=== PATIENT | female | born 1940 | race Caucasian/White ===

== ENCOUNTER 2022-06-26 06:11 | Observation (INO) ==
--- NOTE | 2022-05-22 12:22 | PAT Medication Instructions ---
Medication Instructions Date of Service May 22, 2022 Home Medications amlodipine 2.5 mg tablet (Norvasc) 2.5 mg PO QAM aspirin 81 mg tablet,delayed release (Jose Low Dose Aspirin) 81 mg PO QAM atenolol 50 mg tablet (Tenormin) 50 mg PO BID atorvastatin 40 mg tablet (Lipitor) 40 mg PO HS calcium carbonate 600 mg-vitamin D3 20 mcg (800 unit) chewable tablet (Caltrate 600 plus D) 1 tab PO UD levothyroxine 100 mcg tablet (Synthroid) 100 mcg PO QAM loratadine 10 mg tablet (Claritin) 10 mg PO DAILY PRN Allergy Symptoms multivitamin 1 tab PO QAM omeprazole 20 mg capsule,delayed release 20 mg PO QAM lisinopril 20 mg tablet 20 mg PO QAM omega 1-gdc-jyi-fish oil 900 mg-1,400 mg capsule,delayed release 1 cap PO BID STOP taking 2 weeks before surgery omega 9-xzv-bij-fish oil 900 mg-1,400 mg capsule,delayed release 1 cap PO BID DO NOT take the morning of surgery loratadine 10 mg tablet (Claritin) 10 mg PO DAILY PRN Allergy Symptoms multivitamin 1 tab PO QAM lisinopril 20 mg tablet 20 mg PO QAM calcium carbonate 600 mg-vitamin D3 20 mcg (800 unit) chewable tablet (Caltrate 600 plus D) 1 tab PO UD Take morning of surgery With a small sip of water, OTHERWISE NOTHING TO EAT OR DRINK AFTER MIDNIGHT: amlodipine 2.5 mg tablet (Norvasc) 2.5 mg PO QAM aspirin 81 mg tablet,delayed release (Jose Low Dose Aspirin) 81 mg PO QAM (unless surgeon directed otherwise) atenolol 50 mg tablet (Tenormin) 50 mg PO BID levothyroxine 100 mcg tablet (Synthroid) 100 mcg PO QAM omeprazole 20 mg capsule,delayed release 20 mg PO QAM Take evening before surgery atenolol 50 mg tablet (Tenormin) 50 mg PO BID atorvastatin 40 mg tablet (Lipitor) 40 mg PO HS loratadine 10 mg tablet (Claritin) 10 mg PO DAILY PRN Allergy Symptoms (if needed) Other Notes If you have any questions please call us at [phone] or [phone] or [phone] or [phone]
--- NOTE | 2022-05-29 10:28 | Anesthesiology Consultation ---
Date of Service May 29, 2022 Assessment & Plan (1) Encounter for pre-operative examination: - COVID screening: Per assessment on 05/29: No known COVID-19 positive contacts or current COVID-19 related symptoms. Travel screen negative. Patient vaccinated. At surgeon discretion if preop Covid testing being done. - S/P Right DENNISE (05/31/15): SAB at L3-4 (x1 attempt) at [facility] - Outpatient joint assessment: Pt currently scheduled for inpatient pathway. If surgeon requests review for outpatient joint pathway, patient is not recommended candidate for outpatient joint program from anesthesia standpoint. - Anemia: Hgb 9.3 on preop labs from 05/29/22. Note written to PCP- Awaiting PCP response (Dr. Ledezma/S). Chart Review Chart Review: Patient seen in Pre Admission Testing Teaching & Discussion Pre-Anesthesia Teaching/Discussion Notes: Instructed NPO after midnight before surgery,except medications with 15 cc of water. Medication instructions provided according to the PAT guidelines. History Surgery Operation Date: 06/26/22 10:40 Proposed Procedures p Right Total Hip Revision Arthroplasty - Sal Hancock MD Height/Weight Height: 5 ft 5 in Weight: 79.1 kg Allergies Allergy/AdvReac Type Severity Reaction Status Date / Time No Known Allergies Allergy Unverified 05/18/22 14:48 Medications Home Medications Medication Instructions Recorded Confirmed Last Taken amlodipine 2.5 mg tablet (Norvasc) 2.5 mg PO QAM 03/13/20 05/18/22 05/29/21 aspirin 81 mg tablet,delayed 81 mg PO QAM 03/13/20 05/18/22 05/29/21 release (Jose Low Dose Aspirin) atenolol 50 mg tablet (Tenormin) 50 mg PO BID 03/13/20 05/18/22 05/29/21 atorvastatin 40 mg tablet (Lipitor) 40 mg PO HS 03/13/20 05/18/22 05/29/21 calcium carbonate 600 mg-vitamin 1 tab PO UD 03/13/20 05/18/22 05/29/21 D3 20 mcg (800 unit) chewable tablet (Caltrate 600 plus D) levothyroxine 100 mcg tablet 100 mcg PO QAM 03/13/20 05/18/22 05/29/21 (Synthroid) loratadine 10 mg tablet (Claritin) 10 mg PO DAILY PRN Allergy Symptoms 03/13/20 05/18/22 05/29/21 multivitamin 1 tab PO QAM 03/13/20 05/18/22 05/29/21 omeprazole 20 mg capsule,delayed 20 mg PO QAM 03/13/20 05/18/22 05/29/21 release lisinopril 20 mg tablet 20 mg PO QAM 05/29/21 05/18/22 05/29/21 omega 0-ghm-gpj-fish oil 900 1 cap PO BID 05/29/21 05/18/22 05/29/21 mg-1,400 mg capsule,delayed release Past Medical History Medical History GERD (gastroesophageal reflux disease) Hyperlipidemia Hypertension Hypothyroidism Poor historian Exercise / Class Metabolic Activity III < 4 Walking/Shop/Light housework Past Family History Family History Other No pertinent family history Past Surgical History Surgical History Hip dislocation, right Multiple reductions (done with sedation 03/03/22 at [facility] ER) History of colonoscopy History of total right hip replacement Right DENNISE (05/31/15): SAB at L3-4 (x1 attempt) at [facility] Past Anesthesia History No Family Hx of Anesthesia Complications and Other (Awareness with 2016 right DENNISE, hx "slow to wake") History of PONV No Hx of PONV and No Hx of Motion Sickness Social History Smoking Status: Never smoker Do You Dip or Chew Tobacco: No Hx Alcohol Use: No Hx Substance Use: No substance use type: does not use Review of Systems Patient denies chest pain, shortness of breath, fever, chills, cough, wheezing, palpitations. Physical Exam Vital Signs VITALS BP 105/70 P 67 TEMP 99.3 SP02 95%RA RESP 16 PHYSICAL Full cervical extension range of motion. Full TMJ range of motion. TMD 3 finger breaths Mallampati Score 3 Dentition: partial upper Lungs: clear throughout to auscultation Cardiac: regular rate and rhythm, no murmurs noted Spine: normal Carotid arteries: negative bruit Extremities: no edema Lab Results Anesthesia Preop Results Results Anesthesia Widget: WBC 7.35 K/ul (4.8-10.8) 05/29/22 Hgb 9.3 g/dl (12.0-16.0) L 05/29/22 Hct 30.3 % (37.0-47.0) L 05/29/22 Plt 335 K/uL (130-400) 05/29/22 Na 140 mmol/L (136-145) 05/29/22 K 4.1 mmol/L (3.5-5.1) 05/29/22 Cl 104 mmol/L (98-107) 05/29/22 CO2 30 mmol/L (21-32) 05/29/22 BUN 11 mg/dl (6-23) 05/29/22 Creat 0.89 mg/dl (0.6-1.2) 05/29/22 Glucose Level 103 mg/dl (70-99(Fasting)) H 05/29/22 PT 10.5 Seconds (9.0-12.0) 05/29/22 PTT 23.9 Seconds (21.0-31.0) 05/29/22 INR 1.0 (0.9-1.1) 05/29/22 Blood Type B Positive 05/29/22 Antibody Screen NEGATIVE 05/29/22 Testing Electrocardiogram Date: 10/06/21 Findings: + NSR @ (62) Chest X-Ray Date: 10/06/21 Findings: + NAD COVID-19 Risk Screen Screening Information COVID-19 Screen Date: 05/29/22 Exposure 21 Days Family/Household +COVID Last 21 Days: No Exposure 10 Days Any COVID Exposure Last 10 Days: No Symptoms Last 10 Days Experienced COVID Sx Last 10 Days: No + COVID 0-90 Days COVID + in Last 0-90 Days: No
--- NOTE | 2022-06-23 13:18 | History and Physical Report ---
CHIEF COMPLAINT: Recurrent total hip replacement dislocation. HISTORY OF PRESENT ILLNESS: The patient is an 82-year-old female, who is status post right total hip replacement done on 06/01/2015. The surgery was uncomplicated and her postoperative course was unco mplicated. She had her first dislocation on 03/13/2020. She bent down to pick some food off the cara or, lost her balance, twisted her hip, and her hip popped out. She had x-rays, which revealed this a nd had it relocated. She has had 2 subsequent episodes one on 03/03/2022, which is the most recent. When the hip is located, she has no problems. No pain. Obviously, when it is out, it is quite pain ful. She now had 3 dislocations in the past 2 years. She is very apprehensive about her hip. She i s living by herself as her and having difficulty doing this due to her apprehensi on. Once again, no pain, just scared it is going to pop out. PAST MEDICAL HISTORY: Significant for: 1. Hypertension. 2. Elevated cholesterol. 3. Arthritis. PAST SURGICAL HISTORY: Includes right total hip replacement done on 06/01/2015. ALLERGIES: None. CURRENT MEDICATIONS: 1. Norvasc. 2. Aspirin. 3. Tenormin. 4. Lipitor. 5. Calcium with D. 6. Lisinopril. 7. Claritin. 8. Multivitamin. 9. [place]-3. 10. Omeprazole. SOCIAL HISTORY: This is an 82-year-old female. She lives by herself. She comes in with her ivy arriola, who is a retired nurse. FAMILY HISTORY: Noncontributory. REVIEW OF SYSTEMS: Negative for diabetes, neurologic problem, vascular problem, or bleeding disorder s. No chest pain or shortness of breath. No history of DVT or PE. No known bleeding problems. PHYSICAL EXAMINATION: GENERAL: Shows a pleasant, thin, healthy female. HEENT: Benign. NECK: Supple. No lymphadenopathy. LUNGS: Clear to auscultation. HEART: Regular rate and rhythm. ABDOMEN: Soft, nontender, and nondistended. EXTREMITIES: Grossly neurovascularly intact except as follows. Examination of the right hip reveals the patient walks independently. I did not detect any limp. Hi p incision is healed nicely. There is no swelling. Leg lengths are equal. No pain with hip motion. X-RAYS: I did review x-rays from the hospital, which revealed a dislocated hip replacement. It has now relocated. The implants are well fixed. There are no signs of poly wear or fracture. ASSESSMENT: An 82-year-old female, who is 6-1/2 years out from a total hip replacement with recurren t dislocation x3. She is quite healthy and I am fairly sure that this is going to happen again unles s we intervene. Cup positioning and hip component position looks excellent. I do not think we can i mprove on this. I think the only way to fix this problem is a constrained liner. PLAN: We will take her to the operating room and do a constrained liner. The risks and benefits of this procedure were explained to the patient in depth to include, but not limited to DVT, PE, , infection, neurological injury, vascular injury, bleeding problem, pain, limited range of motion, sti ffness, failure to relieve her symptoms, incomplete relief of symptoms, and recurrent dislocation. T he patient understands and desires to proceed. Informed consent was obtained. We are going to plan on keeping her in the hospital overnight. She will be discharged hopefully post operative day 1. She is going to go and stay at her daughter's house, who is a nurse. We will do DV T prophylaxis to include thigh-high TEDs, SCDs, and aspirin twice a day. We will follow up in the inic 2 weeks postop. Job ID: [id number]
[~2022-06-26 06:11] MED LIST: ACETAMINOPHEN 500 MG TAB PO SCH; CeleBREX 200 MG CAP PO SCH; FAMOTIDINE 20 MG TAB PO SCH; LR 500ML BOLUS, THEN 15ML/HR IV SCH; LR 60ML/HR IV SCH; METOCLOPRAMIDE HCL 10 MG TABLET PO SCH; TRANEXAMIC ACID 1,000 MG **IV Pre-op IV SCH; ceFAZolin 2000MG 2,000 MG/15 ML SYR IV SCH
[2022-06-26] MEDS ORDERED: BUPIVACAINE 0.5 % 5 MG/1 ML MPF 30ML VIAL ONE (06:29)
--- NOTE | 2022-06-26 06:49 | History & Physical Bridge Note ---
Date of Service June 26, 2022 History & Physical Bridge Note I have examined the patient, reviewed the History & Physical and in the interval since the performance of the History & Physical I have noted the following changes of clinical significance: no changes noted
[2022-06-26 07:17] LABS: Basophils % (auto) 1.1 %; Eosinophils # (auto) 0.55 K/uL (0-0.50); Eosinophils % (auto) 5.8 %; Hemoglobin 10.1 g/dl (12.0-16.0); Immature Granulocytes # (auto) 0.03 K/uL (0.01-0.20); Immature Granulocytes % (auto) 0.3 %; Lymphocytes # (auto) 2.63 K/uL (1.2-3.4); Lymphocytes % (auto) 27.9 %; Mean Corpuscular Hemoglobin 25.8 pg (25.0-34.0); Mean Corpuscular Hgb Conc 29.7 g/dL (32.0-36.0); Mean Corpuscular Volume 86.7 fL (80.0-100.0); Mean Platelet Volume 9.3 fL (9.4-12.4); Monocytes # (auto) 1.23 K/uL (0.11-0.59); Neutrophils % (auto) 51.9 %; Platelet Count 407 K/uL (130-400); RDW Coefficient of Variation 18.8 % (11.5-14.5); RDW Standard Deviation 57.5 fL (36.4-46.3); Red Blood Count 3.92 M/uL (4.20-5.40); White Blood Count 9.44 K/ul (4.8-10.8)
[2022-06-26] MEDS ORDERED: MIDAZOLAM HCL 1 MG/ML 2ML VIAL ONE (07:41)
[2022-06-26] MEDS ORDERED: ePHEDrine sulfate 50 MG/ML AMP IV PRN (08:15)
[2022-06-26] MEDS ORDERED: ONDANSETRON INJ 2 MG/ML 2 ML VIAL IV PRN ×2 (08:15→13:39)
[2022-06-26] MEDS ORDERED: ATROPINE SULFATE 0.1 MG/ML 10ML SYR IV PRN (08:15)
[2022-06-26] MEDS ORDERED: fentaNYL citrate 100 MCG/2 ML VIAL IV PRN (08:15)
[2022-06-26] MEDS ORDERED: PROPOFOL IV EMULSION 10 MG/ML 20 ML VIAL IV ONE ×2 (08:23→11:06)
[2022-06-26] MEDS ORDERED: ONDANSETRON INJ 2 MG/ML 2 ML VIAL ONE (08:23)
[2022-06-26] MEDS ORDERED: DEXAMETHASONE SOD INJ 4 MG/ML VIAL ONE (08:23)
[2022-06-26] MEDS ORDERED: LIDOCAINE 2% MPF LOCAL 5 ML VIAL INFIL ONE (08:23)
[2022-06-26] MEDS ORDERED: BUPIVACAINE/EPINEPHRINE 0.5% MPF 1:200,000 30 ML VIAL ONE (08:59)
[2022-06-26] MEDS ORDERED: ePHEDrine sulfate 50 MG/ML SYR ONE (09:57)
[2022-06-26] MEDS ORDERED: PHENYLEPHRINE 100MCG/ML 5ML SYR ONE (09:57)
--- NOTE | 2022-06-26 11:28 | Operative Report ---
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 There is no minimal left hip joint effusion. There is no signs of infection. The implants were well fixed. The hip was quite stable on exam. Specimens None Anesthesia Type Spinal MAC Complications none Disposition Accompanied Patient To Recovery: No Indications Patient is an 82-year-old female who is now about 7 years out from uncomplicated total hip arthroplasty. She did quite well for several years and then 4 and half years after her breast surgery she was bending over twisted fell and had a first dislocation. As she has had 2 subsequent dislocations since then. Component position looked ideal. She failed conservative measures. She elected proceed with surgical stabilization with a constrained liner. Description of Procedure Operative implants consist of: 1. Synthes [place] 36 x 50 6+4 offset the constrained liner. 2. +5/36 mm metal articular ball. The patient was taken the operating, identified, placed on the operating table supine position protectors were properly padded. IV antibiotics tried by anesthesia team. A spinal anesthetic and been implemented holding area. Alexander catheter was placed in sterile fashion. Patient then placed in the left lateral decubitus position. Axillary roll was placed. A Stulberg hip positioner was used for positioning. The right hip and leg were then prepped and draped in usual sterile fashion. A posterolateral approach to the right hip was then performed through a curvilinear incision centered over the greater trochanter. Sharp dissection T hrough subcutaneous tissue down to the IT band gluteal fascia the IT band gluteal fascia incised longitudinally in line with skin incision. Upon going through the IT band gluteal fascia the posterior hip was easily identified. The posterior capsule was completely disrupted. The sutures were still there but that capsule was disrupted. There is no significant effusion or signs of recent trauma and no signs of infection. The hip was then internally rotated and dislocated. It was quite difficult to dislocate. The femoral head was removed. I then loosened up the tissues around the acetabulum and retracted the femur superior and anterior. I exposed the acetabulum so I could see all aspects of the rim. We then remove the polyethylene with removal instrument. I then elected to place a constrained liner. We placed a neutral liner with a +4 offset. It was impacted in position. A +5/36 mm metal articular ball was placed. The constrained ring was placed over the ball and neck. Hip was located. It was quite difficult to locate. We spent quite a bit of time trying to get the locking ring over the plastic. After several attempts we realized that it was on backwards. Therefore we had redislocated the hip, switched the orientation of the constrained ring and relocate the hip. The liner ring was then quite a bit easier to a place over the polyethylene. Once it was appropria te position we tested the hip. We cannot create any distraction with shuck test. It was fully stable in full extension and external rotation flexion to 9 degrees internal rotation over 60 degrees. There is no signs of instability to any rotation. Attention drawn toward closing. Nupathe wounds irrigated cosigns of pulsatile lavage solution. I did inject locally with 60 cc of half percent Marcaine with epinephrine. There was no posterior capsule to repair. The IT band gluteal fascia then closed in 1 PDS suture running fashion for subcutaneous tissues then closed with 2 layers the deep layer #2 Vicryl suture and subcutaneous tissues with 2-0 Dexon suture in a buried interrupted fashion. Skin was closed skin jori. Leg was then cleaned and dried and sterile dressed with Xeroform, 4 x 4's, ABD pad, foam tape was applied. Patient then transferred to the recovery room in stable condition. Patient tolerated procedure well no complications. Demond Ayala, my physician assistant restaurant general manager, was present for the entire procedure. His assistance was required for proper patient positioning, prepping and draping, surgical exposure, retraction, placing the implants, perform the technical detai ls of the operation, reduction of the hip and closure of the wound followed by a placement of sterile bandage. I attest to the content of the Intraoperative Record and any orders documented therein. Any exceptions are noted below.
--- NOTE | 2022-06-26 12:01 | XRay Report ---
XR hip 1V RT w pelvis HISTORY: 82 years-old Female IN PACU - Post Surgical right hip arthroplasty COMPARISON: 03/03/2022 TECHNIQUE: AP view the pelvis with crosstable lateral view of the right hip FINDINGS: Moderate osteoarthritis of the left hip. Right hip arthroplasty demonstrates satisfactory alignment. No acute fracture or unexpected opaque foreign body identified. Lateral skin jori are present leonela g with expected postoperative soft tissue swelling with deep tissue air. Alexander catheter. IMPRESSION: Right hip total joint arthroplasty with expected postoperative changes. ACT 112: Negative or not required by law. The above report was generated using voice recognition software. It may contain grammatical, syntax o r spelling errors. Electronically signed by: Gaston De M.D. 06/26/2022 12:00 PM
[2022-06-26] MEDS ORDERED: LORATADINE 10 MG TAB PO PRN (13:39)
[2022-06-26] MEDS ORDERED: bisacodyL 10 MG SUPP PR PRN (13:39)
[2022-06-26] MEDS ORDERED: MAGNESIUM HYDROXIDE SUSP 30 ML UDC PO PRN (13:39)
[2022-06-26] MEDS ORDERED: NALOXONE HCL 0.4 MG/1 ML VIAL/CARP IV PRN (13:39)
[2022-06-26] MEDS ORDERED: NON-FORMULARY MEDICATION (Calcium Carbonate-Vitamin D3 [Caltrate 600 Plus D] 600 mg (1,500 PO SCH (13:39)
[2022-06-26] MEDS ORDERED: HYDROmorphone INJ 0.5 MG/0.5 ML SYR IV PRN (13:39)
[2022-06-26] MEDS ORDERED: ALUMINUM/MAGNESIUM SUSP 30 ML UDC PO PRN (13:39)
[2022-06-26] MEDS ORDERED: METOCLOPRAMIDE HCL INJ 5 MG/ML 2 ML VIAL IV PRN (13:39)
--- NOTE | 2022-06-26 13:54 | Anesthesiology Progress Note ---
Date of Service June 26, 2022 Anesthesia Post Procedure Vital Signs Vital Signs: Temp Pulse Pulse Resp BP Pulse Ox O2 Del Method 06/26/22 13:10 36.4 C L 65 16 122/69 98 Nasal Cannula 06/26/22 12:55 70 19 119/69 97 Nasal Cannula 06/26/22 12:40 66 17 113/65 98 Nasal Cannula 06/26/22 12:30 63 18 119/69 99 Nasal Cannula 06/26/22 12:20 67 20 118/69 100 Nasal Cannula 06/26/22 12:10 36.4 C L 65 19 115/64 97 Nasal Cannula 06/26/22 12:00 68 15 113/64 97 Nasal Cannula 06/26/22 11:50 66 14 109/60 97 Nasal Cannula 06/26/22 11:40 66 17 106/63 99 Nasal Cannula 06/26/22 11:30 67 15 106/70 98 Nasal Cannula 06/26/22 11:20 36.1 C L 55 L 17 130/74 100 Nasal Cannula 06/26/22 06:33 36.7 C 71 20 120/60 99 Room Air O2 Flow Rate 06/26/22 13:10 2 06/26/22 12:55 2 06/26/22 12:40 2 06/26/22 12:30 2 06/26/22 12:20 2 06/26/22 12:10 2 06/26/22 12:00 2 06/26/22 11:50 2 06/26/22 11:40 2 06/26/22 11:30 2 06/26/22 11:20 3 06/26/22 06:33 Transfer of Care Handoff Completed per policy Notes Mental Status: alert / awake / arousable and participated in evaluation Patient Amnestic to Procedure: Yes Nausea / Vomiting: adequately controlled Pain: adequately controlled Airway Patency, RR, SpO2: stable & adequate BP & HR: stable & adequate Hydration State: stable & adequate Neuraxial Anesthesia: was administered and sensory block is resolving Anesthetic Complications: no major complications apparent and Pt Satisfied with anesthetic care
[2022-06-26] MEDS: ACETAMINOPHEN 500 MG TAB PO SCH ×2 (14:40→21:02)
[2022-06-26] MEDS: SODIUM CHLORIDE 0.9% 1000ML 1,000 ML IV SCH (14:41)
[2022-06-26] MEDS ORDERED: TRANEXAMIC ACID / 0.7% NACL 1,000 MG/100 ML BAG IV SCH (17:30)
[2022-06-26] MEDS: traMADol HCL 50 MG TABLET PO PRN (17:40)
[2022-06-26] MEDS: ceFAZolin 1000MG 1,000 MG/7.5 ML SYR IV SCH (17:40)
[2022-06-26] MEDS: DOCUSATE SODIUM 100 MG CAP PO SCH (20:13)
[2022-06-26] MEDS: ATENOLOL 50 MG TABLET PO SCH (20:13)
[2022-06-26] MEDS: ASPIRIN 81 MG ECTAB PO SCH (20:13)
[2022-06-26] MEDS: OMEGA-3 (PURIFIED FISH OIL) 1 GM CAP PO SCH (20:13)
[2022-06-26] MEDS ORDERED: ATORVASTATIN 40 MG TAB PO SCH (21:00)
[2022-06-26] MEDS ORDERED: SENNA 8.6 MG TAB PO SCH (21:00)
[2022-06-27] MEDS: SODIUM CHLORIDE 0.9% 1000ML 1,000 ML IV SCH (00:38)
[2022-06-27] MEDS: ceFAZolin 1000MG 1,000 MG/7.5 ML SYR IV SCH (00:38)
[2022-06-27 03:36] VITALS: O2SAT 94
[2022-06-27] MEDS: ACETAMINOPHEN 500 MG TAB PO SCH (05:42)
[2022-06-27] MEDS ORDERED: LEVOTHYROXINE SODIUM 100 MCG TABLET PO SCH (06:30)
[2022-06-27 07:18] VITALS: BP 118/71; PULSE 62; TEMP 98.4
[2022-06-27 08:14] LABS: BUN Creatinine Ratio 13.3 (10-20); Calcium 8.9 mg/dl (8.5-10.1); Est GFR (African American) 62.3 ml/min; Est GFR (Non-African American) 53.7 ml/min
[2022-06-27 08:32] LABS: Hematocrit (blood only) 23.9 % (37.0-47.0); Hemoglobin 7.1 g/dl (12.0-16.0); Mean Corpuscular Hemoglobin 25.6 pg (25.0-34.0); Mean Corpuscular Hgb Conc 29.7 g/dL (32.0-36.0); Mean Corpuscular Volume 86.3 fL (80.0-100.0); Mean Platelet Volume 9.7 fL (9.4-12.4); Platelet Count 248 K/uL (130-400); RDW Coefficient of Variation 18.7 % (11.5-14.5); RDW Standard Deviation 57.1 fL (36.4-46.3); Red Blood Count 2.77 M/uL (4.20-5.40); White Blood Count 9.33 K/ul (4.8-10.8)
[2022-06-27 08:33] LABS: Acanthocytes 2+; Basophils # (auto) 0.01 K/uL (0-0.2); Basophils % (auto) 0.1 %; Immature Granulocytes # (auto) 0.04 K/uL (0.01-0.20); Immature Granulocytes % (auto) 0.4 %; Lymphocytes # (auto) 0.96 K/uL (1.2-3.4); Lymphocytes % (auto) 10.3 %; Monocytes # (auto) 0.87 K/uL (0.11-0.59); Monocytes % (auto) 9.3 %; Neutrophils # (auto) 7.45 K/uL (1.40-6.50); Neutrophils % (auto) 79.9 %; Ovalocytes 1+; Polychromasia 1+
[2022-06-27] MEDS: traMADol HCL 50 MG TABLET PO PRN (08:33)
[2022-06-27] MEDS: DOCUSATE SODIUM 100 MG CAP PO SCH (08:34)
[2022-06-27] MEDS: ASPIRIN 81 MG ECTAB PO SCH (08:34)
[2022-06-27] MEDS: OMEGA-3 (PURIFIED FISH OIL) 1 GM CAP PO SCH (08:34)
[2022-06-27] MEDS: ATENOLOL 50 MG TABLET PO SCH (08:34)
[2022-06-27] MEDS ORDERED: PANTOprazole 40 MG TAB PO SCH (09:00)
[2022-06-27] MEDS ORDERED: MULTIVITAMIN TAB PO SCH ×2 (09:00)
[2022-06-27] MEDS ORDERED: amLODIPine BESYLATE 5 MG TAB PO SCH (09:00)
[2022-06-27] MEDS ORDERED: lisinopril 20 MG TAB PO SCH (09:00)
--- NOTE | 2022-06-27 11:28 | Progress Notes ---
DATE OF SERVICE: 06/27/2022 SUBJECTIVE: An 82-year-old female postoperative day 1 from a revision arthroplasty to a constrained liner. She is doing well. Pain has been controlled. She says therapy went well this morning. She is anxious to get home. All dressed and ready to go. OBJECTIVE: VITAL SIGNS: Temperature is 36.9. Vital signs are stable. PHYSICAL EXAMINATION: GENERAL: Shows a pleasant elderly female. She is lying in bed, looks pretty comfortable. EXTREMITIES: Examination of the right hip reveals the dressing to be clean, dry and intact. Leg mary gths were equal. Hip is located. NEUROLOGIC: She is neurologically intact. LABORATORY DATA: Hemoglobin 7.1. Hematocrit 23.9. Electrolytes are stable. ASSESSMENT: An 82-year-old female postoperative day 1 from a right total hip replacement revision to a constrained liner. She is doing well. Hemoglobin is a bit low, but she is asymptomatic. She maddy christianson has a low hemoglobin. She is on iron supplementation. Pain is controlled. Hip is located. S he is neurologically intact. PLAN: 1. DVT prophylaxis includes thigh-high TEDs, SCDs, and aspirin twice a day for 6 weeks. 2. PT/OT, weightbear as tolerated. Total hip protocol. 3. Pain control, doing okay with current pain regimen. 4. Disposition: Plan to discharge to home with her daughter's assistance. She is going to stay at her daughter's house. She will have home health there. Continue iron supplementation. Job ID: [id number]
--- NOTE | 2022-07-01 06:06 | Discharge Summary ---
Date of Service July 01, 2022 Discharge Data Procedures Performed Operation Date: 06/26/22 08:50 Actual Procedures p Right Total Hip Revision Arthroplasty(Right) - Sal Hancock MD Hospital Course (1) History of revision of total replacement of right hip joint: This is a 82 year old patient admitted on 06/26/22 and underwent revision hip arthroplasty, specifically revision to a constrained liner. She tolerated the procedure well and there were no complications. Transferred to the PACU post op and later to the orthopedic floor for further care. She was given ancef for antibiotic prophylaxis. __ was also given NISA stockings, SCDs, and aspirin for DVT prophylaxis. Hemoglobin, hematocrit, and vital signs were monitored during her hospital stay and remained stable. She was anemic but did not require any blood transfusions. She was on an iron supplement. There were no complications during her hospital stay. By post op day #1 the patient was tolerating a regular diet, pain was reasonably controlled with oral pain medicine, and she was participating in physical therapy. On post op day #1 the patient was discharged home and set up with home health care. She was given printed discharge instructions including prescriptions for extra strength tylenol, aspirin, zofran, senokot, and tramadol. Continue physical therapy, weight bearing as tolerated. Continue hip precautions. Continue NISA stockings. Follow up approximately 2 weeks post op or sooner if there are problems or concerns. Coding Level of Care Code None Diagnoses History of revision of total replacement of right hip joint Z96.641
== END 2022-06-27 14:04 | disposition home health service (06) ==
LOC: ASU 06:11 → 3N 11:26 → INTOOBSV 11:26

== ENCOUNTER 2022-06-29 12:19 | Inpatient (IN) ==
[2022-06-29] MEDS ORDERED: SODIUM CHLORIDE 0.9% 250 ML IV PRN ×3 (12:50→17:46)
[2022-06-29] MEDS ORDERED: PANTOprazole 80 MG in DEXTROSE 5% 100 ML IV STA (12:55)
--- NOTE | 2022-06-29 13:10 | Emergency Department Note ---
Impression & Plan Anemia, Heme positive stool, Status post hip surgery ED Provider Note NAME: LAMINE CAMPBELL AGE: 82 SEX: F : 1940 ARRIVES VIA: Walk-In INFORMANT: [Patient][family] ED PROVIDER(S): [Frankie Lakhani MD] CHIEF COMPLAINT: Dr. Referred HISTORY OF PRESENT ILLNESS: The patient is an 82-year-old female who had a revision of her right hip done [address] Hancock. The patient's preop hemoglobin was 10.1. At discharge after the surgery, the hemoglobin was 7.1. Yesterday, outpatient laboratory testing revealed a value of 6.8. The patient was sent for a blood transfusion. The patient does have black stools but takes iron. She does not recall any history of previous GI bleeding. She has not had chest pain or shortness of breath, no abdominal pain. She does not feel weak. The patient is on a daily aspirin. PMHx/PSHx: See Below SOCIAL HISTORY: See Below. PHYSICAL EXAM: GENERAL: Patient is in no acute distress. HEENT: No acute trauma, normocephalic atraumatic, mucous membranes moist, no nasal congestion. NECK: No stridor, no adenopathy, no meningismus, trachea is midline. LUNGS: Clear to auscultation bilaterally, no wheeze, no rhonchi, breath sounds equal. HEART: 2/6 systolic murmur, regular rate and rhythm. ABDOMEN: Soft, nontender, bowel sounds positive, no peritonitis. EXTREMITIES: No cyanosis or edema, full range of motion of all the joints without pain or difficulty, no signs for acute trauma. NEUROLOGIC: Oriented x 3, no acute motor or sensory deficits, no focal weakness. SKIN: No rash, no jaundice, no diaphoresis. Pale. Rectal: Dark-colored stool, trace heme positive. DIFFERENTIAL DIAGNOSIS: GI bleeding, anemia secondary to her surgical work, renal or liver failure, coagulopathy, gastritis or ulcer, AVM, among others. EMERGENCY DEPARTMENT COURSE/PROCEDURES: Prior/Outside records reviewed: None. ECG per my interpretation: Indication was possible GI bleeding. The ECG shows a normal sinus rhythm with a rate of 61. There is no ST elevation, no PVCs. The QTc is 410 Continuous Cardiac Monitoring per my interpretation: An order was placed for continuous cardiac monitoring. The monitor shows a rate of 63 with normal sinus rhythm. Critical Care Note: I have personally spent 43 minutes of critical care time in the direct management of this patient. This includes bedside care, interpretation of diagnostic studies, and testing, discussion with consultants, patient, and family members, and other required patient management activities. This 43 minutes is in excess of all separately billable procedures. MEDICAL DECISION MAKING: There is no leukocytosis. The patient is anemic with a hemoglobin of 6.6. The hemoglobin has dropped compared to her recent testing. There was a normal platelet count. No coagulopathy. No renal failure or significant electrolyte abnormality. No concerning liver enzyme elevation. ECG showed a normal sinus rhythm, no ischemia. Cardiac enzyme testing x1 was not consistent with acute cardiac injury. On exam, the patient was pale. She was resting comfortably. She was not hypotensive. Rectal exam showed trace heme positive stool. The patient presents with anemia. She is going to require a packed red blood cell transfusions. I did order for 1 unit to be transfused here in the ED, the appropriate paperwork for the transfusion was completed and signed. I do think the patient requires a hospital stay. She is anemic and actually may be losing blood from her GI tract. Further work-up is warranted. The patient was given IV Protonix, 80 mg. I did speak with the patient and case management, the on-call hospitalist was consulted. DISPOSITION: Patient's presentation and findings warrant a hospital stay. Past Med/Surg History Medical History GERD (gastroesophageal reflux disease) Hyperlipidemia Hypertension Hypothyroidism Poor historian Surgical History Hip dislocation, right Multiple reductions (done with sedation 03/03/22 at [facility] ER) History of colonoscopy History of hip surgery 06/26/2022-right total hip replacement revision to a constrained liner History of total right hip replacement Right DENNISE (05/31/15): SAB at L3-4 (x1 attempt) at [facility] Family History Other No pertinent family history Social History Smoking Status: Never smoker Second Hand Exposure: No; Hx Alcohol Use: No Hx Substance Use: No Preferred Language: [place] Helen[place] Communication Ability: Effective Semi Conductor Assembler Required: No Beliefs That Will Affect Care: None Current Living Situation: Alone Feels Safe at Home: Yes Assistive Devices: Walker Allergies Allergies Allergy/AdvReac Type Severity Reaction Status Date / Time No Known Allergies Allergy Verified 06/26/22 06:30 Home Meds Home Medications Medication Instructions Recorded Confirmed amlodipine 2.5 mg tablet (Norvasc) 2.5 mg PO QAM 03/13/20 06/29/22 atenolol 50 mg tablet (Tenormin) 50 mg PO BID 03/13/20 06/29/22 atorvastatin 40 mg tablet (Lipitor) 40 mg PO HS 03/13/20 06/29/22 calcium carbonate 600 mg-vitamin 1 tab PO Q2D 03/13/20 06/29/22 D3 20 mcg (800 unit) chewable tablet (Caltrate 600 plus D) levothyroxine 100 mcg tablet 100 mcg PO QAM 03/13/20 06/29/22 (Synthroid) loratadine 10 mg tablet (Claritin) 10 mg PO DAILY PRN Allergy Symptoms 03/13/20 06/29/22 multivitamin 1 tab PO QAM 03/13/20 06/29/22 omeprazole 20 mg capsule,delayed 20 mg PO QAM 03/13/20 06/29/22 release lisinopril 20 mg tablet 20 mg PO QAM 05/29/21 06/29/22 omega 4-tvy-piy-fish oil 900 1 cap PO BID 05/29/21 06/29/22 mg-1,400 mg capsule,delayed release ferrous sulfate 325 mg (65 mg 325 mg PO BID 06/29/22 06/29/22 iron) tablet (FeroSul) Previous Rx's Medication Instructions Recorded acetaminophen 500 mg capsule 1,000 mg PO TID Pain 30 days #180 06/24/22 caps aspirin 81 mg tablet,delayed 81 mg PO BID 30 days #60 tabs 06/24/22 release (Jose Low Dose Aspirin) ondansetron HCl 4 mg tablet 4 mg PO Q6 PRN nausea #20 tabs 06/24/22 sennosides 8.6 mg-docusate sodium 1 tab-cap PO DAILY #14 tabs 06/24/22 50 mg tablet (Senokot-S) tramadol 50 mg tablet 50 - 100 mg PO Q6H PRN pain #40 06/24/22 tabs Results & Data (ED) Vital Signs Vital Signs - 24 hr 06/29/22 12:27 06/29/22 12:40 06/29/22 12:47 Temperature 36.4 C L Temperature Source Temporal Artery Scan Pulse Rate 71 63 Pulse Rate [Radial] 64 Pulse Rhythm Pulse Rhythm [Radial] Regular Pulse Strength [Radial] Normal Respiratory Rate 16 18 Respiratory Effort / Characteristics Non-Labored Spontaneous Respiratory Depth Normal Normal Respiratory Pattern Regular Blood Pressure 93/58 L Blood Pressure [Left Arm] 112/62 Blood Pressure Mean 69 Blood Pressure Mean [Left Arm] 78 Blood Pressure Position Sitting Blood Pressure Position [Left Arm] Sitting Pulse Oximetry 97 96 Oxygen Delivery Method Room Air Room Air Sepsis New/Unexplained Change in Mental Status No Sepsis Action Taken by Nursing No Action Required 06/29/22 12:50 Temperature Temperature Source Pulse Rate 60 Pulse Rate [Radial] Pulse Rhythm Regular Pulse Rhythm [Radial] Pulse Strength [Radial] Respiratory Rate 18 Respiratory Effort / Characteristics Respiratory Depth Respiratory Pattern Blood Pressure Blood Pressure [Left Arm] Blood Pressure Mean Blood Pressure Mean [Left Arm] Blood Pressure Position Blood Pressure Position [Left Arm] Pulse Oximetry 96 Oxygen Delivery Method Room Air Sepsis New/Unexplained Change in Mental Status Sepsis Action Taken by Alf Medications Current Medication List: was personally reviewed by me Laboratory Data Attestation: I reviewed the patient's lab results. 06/29/22 13:29 06/29/22 13:29 Lab Results 06/29/22 06/29/22 06/29/22 Range/Units 13:29 13:29 13:29 WBC 9.46 (4.8-10.8) K/ul RBC 2.49 L (4.20-5.40) M/uL Hgb 6.6 L* (12.0-16.0) g/dl Hct 22.0 L (37.0-47.0) % MCV 88.4 (80.0-100.0) fL MCH 26.5 (25.0-34.0) pg MCHC 30.0 L (32.0-36.0) g/dL RDW Std Deviation 63.7 H (36.4-46.3) fL RDW Coeff of Peewee 20.3 H (11.5-14.5) % Plt Count 268 (130-400) K/uL MPV 9.8 (9.4-12.4) fL Immature Gran % (Auto) 0.6 % Neut % (Auto) 71.2 % Lymph % (Auto) 16.9 % Brooks % (Auto) 8.5 % Eos % (Auto) 2.2 % Baso % (Auto) 0.6 % Neut # (Auto) 6.73 H (1.40-6.50) K/uL Lymph # (Auto) 1.60 (1.2-3.4) K/uL Brooks # (Auto) 0.80 H (0.11-0.59) K/uL Eos # (Auto) 0.21 (0-0.50) K/uL Baso # (Auto) 0.06 (0-0.2) K/uL Immature Gran # (Auto) 0.06 (0.01-0.20) K/uL Polychromasia 1+ Ovalocytes 1+ PT 10.3 (9.0-12.0) Seconds INR 1.0 (0.9-1.1) APTT 21.9 (21.0-31.0) Seconds PTT Ratio 0.8 Sodium (136-145) mmol/L Potassium (3.5-5.1) mmol/L Chloride (98-107) mmol/L Carbon Dioxide (21-32) mmol/L Anion Gap (3-11) BUN (6-23) mg/dl Creatinine (0.6-1.2) mg/dl Est Cr Clr Drug Dosing ml/min Est GFR ( Amer) ml/min Est GFR (Non-Af Amer) ml/min BUN/Creatinine Ratio (10-20) Glucose (70-99(Fasting)) mg/dl Calcium (8.5-10.1) mg/dl Iron (35-150) mcg/dl Transferrin (200-360) mg/dl Ferritin (8-388) ng/ml Total Bilirubin (0.2-1.0) mg/dl AST (13-39) U/L ALT (7-52) U/L Alkaline Phosphatase (34-104) U/L Troponin I High Sens (0-14) pg/ml Total Protein (6.0-8.3) gm/dl Albumin (3.4-5.0) gm/dl Globulin (2.5-4.0) gm/dl Albumin/Globulin Ratio (0.9-2) Blood Type B Positive Antibody Screen NEGATIVE Crossmatch See Detail 06/29/22 Range/Units 13:29 WBC (4.8-10.8) K/ul RBC (4.20-5.40) M/uL Hgb (12.0-16.0) g/dl Hct (37.0-47.0) % MCV (80.0-100.0) fL MCH (25.0-34.0) pg MCHC (32.0-36.0) g/dL RDW Std Deviation (36.4-46.3) fL RDW Coeff of Peewee (11.5-14.5) % Plt Count (130-400) K/uL MPV (9.4-12.4) fL Immature Gran % (Auto) % Neut % (Auto) % Lymph % (Auto) % Brooks % (Auto) % Eos % (Auto) % Baso % (Auto) % Neut # (Auto) (1.40-6.50) K/uL Lymph # (Auto) (1.2-3.4) K/uL Brooks # (Auto) (0.11-0.59) K/uL Eos # (Auto) (0-0.50) K/uL Baso # (Auto) (0-0.2) K/uL Immature Gran # (Auto) (0.01-0.20) K/uL Polychromasia Ovalocytes PT (9.0-12.0) Seconds INR (0.9-1.1) APTT (21.0-31.0) Seconds PTT Ratio Sodium 139 (136-145) mmol/L Potassium 3.7 (3.5-5.1) mmol/L Chloride 106 (98-107) mmol/L Carbon Dioxide 29 (21-32) mmol/L Anion Gap 4 (3-11) BUN 13 (6-23) mg/dl Creatinine 0.83 (0.6-1.2) mg/dl Est Cr Clr Drug Dosing 56.5 ml/min Est GFR ( Amer) 76.1 ml/min Est GFR (Non-Af Amer) 65.7 ml/min BUN/Creatinine Ratio 15.7 (10-20) Glucose 121 H (70-99(Fasting)) mg/dl Calcium 8.9 (8.5-10.1) mg/dl Iron 80 (35-150) mcg/dl Transferrin 233 (200-360) mg/dl Ferritin 52.2 (8-388) ng/ml Total Bilirubin 0.5 (0.2-1.0) mg/dl AST 31 (13-39) U/L ALT 13 (7-52) U/L Alkaline Phosphatase 45 (34-104) U/L Troponin I High Sens 8.1 (0-14) pg/ml Total Protein 6.3 (6.0-8.3) gm/dl Albumin 3.3 L (3.4-5.0) gm/dl Globulin 3.0 (2.5-4.0) gm/dl Albumin/Globulin Ratio 1.1 (0.9-2) Blood Type Antibody Screen Crossmatch Administered Medications Acetaminophen (Acetaminophen 325 Mg Tab) 650 mg PO Q4H PRN PRN Reason: pain/fever Stop: 07/29/22 17:45 Last Admin: 06/29/22 18:38 Dose: 650 mg Documented By: CITLALLI Discontinued Medications Pantoprazole Sodium 80 mg/ (Dextrose) 100 mls @ 400 mls/hr IV ONE STA Stop: 06/29/22 13:09 Last Infusion: 06/29/22 14:08 Dose: 0 mls/hr Documented By: Admin: 06/29/22 13:29 Dose: 400 mls/hr Documented By: TERE Discharge Plan Visit Data Chief Complaint: Referred by Doctor Stated Complaint: ANEMIA, REFERRED BY DR ED Provider: Frankie Lakhani Discharge Problem: Anemia, Heme positive stool, Status post hip surgery Patient Disposition: Admitted As Inpatient Condition: Fair Discharge Instructions Interventions: ED Discharge Assessment Last Done: 06/29/22 16:41
[2022-06-29 14:04] LABS: Hemoglobin 6.6 g/dl (12.0-16.0); Mean Corpuscular Hemoglobin 26.5 pg (25.0-34.0); Mean Corpuscular Volume 88.4 fL (80.0-100.0); Mean Platelet Volume 9.8 fL (9.4-12.4); Platelet Count 268 K/uL (130-400); RDW Coefficient of Variation 20.3 % (11.5-14.5); RDW Standard Deviation 63.7 fL (36.4-46.3); Red Blood Count 2.49 M/uL (4.20-5.40); White Blood Count 9.46 K/ul (4.8-10.8)
[2022-06-29 14:11] LABS: Albumin Globulin Ratio 1.1 (0.9-2); Albumin Level 3.3 gm/dl (3.4-5.0); BUN Creatinine Ratio 15.7 (10-20); Bilirubin,Total 0.5 mg/dl (0.2-1.0); Calcium 8.9 mg/dl (8.5-10.1); Creatinine Clr Calc Pharmacy 56.5 ml/min; Est GFR (African American) 76.1 ml/min; Est GFR (Non-African American) 65.7 ml/min; Potassium 3.7 mmol/L (3.5-5.1); Total Protein 6.3 gm/dl (6.0-8.3)
[2022-06-29 14:16] LABS: Troponin I High Sensitivity 8.1 pg/ml (0-14)
[2022-06-29 14:23] LABS: Basophils # (auto) 0.06 K/uL (0-0.2); Basophils % (auto) 0.6 %; Eosinophils # (auto) 0.21 K/uL (0-0.50); Eosinophils % (auto) 2.2 %; Immature Granulocytes # (auto) 0.06 K/uL (0.01-0.20); Immature Granulocytes % (auto) 0.6 %; Lymphocytes % (auto) 16.9 %; Monocytes % (auto) 8.5 %; Neutrophils # (auto) 6.73 K/uL (1.40-6.50); Neutrophils % (auto) 71.2 %; Ovalocytes 1+; Polychromasia 1+
[2022-06-29 14:41] LABS: Partial Thromboplastin Ratio 0.8; Partial Thromboplastin Time 21.9 Seconds (21.0-31.0); Prothrombin Time 10.3 Seconds (9.0-12.0)
--- NOTE | 2022-06-29 15:21 | Electrocardiogram Report ---
Test Reason : Blood Pressure : / mmHG Vent. Rate : 061 BPM Atrial Rate : 061 BPM P-R Int : 148 ms QRS Dur : 080 ms QT Int : 408 ms P-R-T Axes : 031 017 066 degrees QTc Int : 410 ms Normal sinus rhythm Normal ECG When compared with ECG of 29-MAY-2021 16:01, No significant change was found Confirmed by Shayne Haq ([id number]) on 06/29/2022 3:21:09 PM Referred By: Confirmed By:Shayne Haq
[2022-06-29 15:24] LABS: Ferritin 52.2 ng/ml (8-388)
--- NOTE | 2022-06-29 15:30 | Gastrointestinal Consultation ---
Date of Consultation June 29, 2022 Assessment & Plan (1) Anemia: 82 year old female with history of HTN, dyslipidemia, CKD, hypothyroidism, POD # 3 right hip revision admitted through the ED with anemia, likely multifactorial but given concern of pre-procedure anemia, we are happy to arrange endoscopic evaluation once medically optimized as it may be hard for her to prep as an OP No NSAIDs Continue PO iron Start Miralax 1 capful daily Ok for PO PPI BID Trend H&H Monitor GI output Transfuse PRN per primary service No GI contraindication to low-residue diet Saturday, Saturday If concern for ongoing GI blood loss, please start a clear liquid diet Saturday and start a bowel prep with 4L of golytely around 1600, keep NPO for EGD/Colonoscopy Saturday We appreciate assistance in the management of any serological abnormality and corrections to include: hemoglobin >7, INR <2, platelets >50,000, potassium lev els >3.5 but <5.3, and sodium levels within 5 points of the reference range prior to endoscopic evaluation. Recall as needed over the weekend. Thank you for allowing us to participate in the care of this patient. Please call with any acute changes, questions or concerns. Please see addendum below with additional recommendation from my supervising physician. Supervising Physician Co-Signing Physician Notes Attg add: I interviewed and examined pt, reviewed chart and labs. Pt with anemia after hip replacement, dark stool. Hgb 10--->7--> now 6's. Follow hgb over weekend, consider EGD on Saturday if hgb continues to decline. Consider iv iron, empiric oral PPI BID. History of Present Illness Reason for Consultation: anemia Requesting Physician: GEO Mata Attending Physician: GEO Mata History of Present Illness 82 year old female with history of HTN, dyslipidemia, CKD, hypothyroidism, POD # 3 right hip revision admitted through the ED with anemia - GI was asked to evaluate for anemia as this was present both pre-op and post-op. Pt was seen, chart reviewed. Remains in the ED, family at bedside. Yet to receive blood transfusion. Notes from GI standpoint has chronic intermittent diarrhea. Often food trigger, certain veggies. Denies abd pain. No nausea, vomiting. Was told she had anemia and to start PO iron. Since starting iron, stools turned dark, black. No BRBPR. No fever, chills, CP, SOB. OP HGB baseline [id number] 10-11 range HGB 12.3 --> 9.3 --> 10.1 --> 7.1 --> 6.6 Normal MCV Iron 80 Ferritin 52 BUN 13 EGD: none Colonoscopy 2010: Rectal exam revealed non-thrombosed internal hemorrhoids. - Mild diverticulosis sigmoid colon. - Internal hemorrhoids. - Normal mucosa entire examined colon. This was biopsied. Allergies Allergy/AdvReac Type Severity Reaction Status Date / Time No Known Allergies Allergy Verified 06/26/22 06:30 Home Medications Medication Instructions Recorded Confirmed Type amlodipine 2.5 mg tablet (Norvasc) 2.5 mg PO QAM 03/13/20 06/29/22 History atenolol 50 mg tablet (Tenormin) 50 mg PO BID 03/13/20 06/29/22 History atorvastatin 40 mg tablet (Lipitor) 40 mg PO HS 03/13/20 06/29/22 History calcium carbonate 600 mg-vitamin 1 tab PO Q2D 03/13/20 06/29/22 History D3 20 mcg (800 unit) chewable tablet (Caltrate 600 plus D) levothyroxine 100 mcg tablet 100 mcg PO QAM 03/13/20 06/29/22 History (Synthroid) loratadine 10 mg tablet (Claritin) 10 mg PO DAILY PRN Allergy Symptoms 03/13/20 06/29/22 History multivitamin 1 tab PO QAM 03/13/20 06/29/22 History omeprazole 20 mg capsule,delayed 20 mg PO QAM 03/13/20 06/29/22 History release lisinopril 20 mg tablet 20 mg PO QAM 05/29/21 06/29/22 History omega 0-rhx-vcc-fish oil 900 1 cap PO BID 05/29/21 06/29/22 History mg-1,400 mg capsule,delayed release acetaminophen 500 mg capsule 1,000 mg PO TID Pain 30 days #180 06/24/22 06/29/22 Rx caps aspirin 81 mg tablet,delayed 81 mg PO BID 30 days #60 tabs 06/24/22 06/29/22 Rx release (Jose Low Dose Aspirin) ondansetron HCl 4 mg tablet 4 mg PO Q6 PRN nausea #20 tabs 06/24/22 06/29/22 Rx sennosides 8.6 mg-docusate sodium 1 tab-cap PO DAILY #14 tabs 06/24/22 06/29/22 Rx 50 mg tablet (Senokot-S) tramadol 50 mg tablet 50 - 100 mg PO Q6H PRN pain #40 06/24/22 06/29/22 Rx tabs ferrous sulfate 325 mg (65 mg 325 mg PO BID 06/29/22 06/29/22 History iron) tablet (FeroSul) Patient History Medical History GERD (gastroesophageal reflux disease) Hyperlipidemia Hypertension Hypothyroidism Poor historian Surgical History Hip dislocation, right Multiple reductions (done with sedation 03/03/22 at [facility] ER) History of colonoscopy History of hip surgery 06/26/2022-right total hip replacement revision to a constrained liner History of total right hip replacement Right DENNISE (05/31/15): SAB at L3-4 (x1 attempt) at [facility] Family History Other No pertinent family history Social History Smoking Status: Never smoker Second Hand Exposure: No; Hx Alcohol Use: No Hx Substance Use: No Preferred Language: Vietnamese Communication Ability: Effective Olericulture Professor Required: No Beliefs That Will Affect Care: None Current Living Situation: Alone Feels Safe at Home: Yes Assistive Devices: Walker Review of Systems Review of Systems: All systems reviewed & are unremarkable except as noted in HPI & below Physical Exam Constitutional: WD/WN, vitals as above Respiratory: normal respiratory effort, lungs clear to auscultation Cardiovascular: Rate/Rhythm: regular rate and regular rhythm Gastrointestinal (Abdomen): normal bowel sounds, soft, nontender, no hepatosplenomegaly Skin: no rashes, warm and dry Results & Data ([facility]) Vital Signs (Past 12 Hours) Vital Signs Temp Pulse Pulse Resp BP BP Pulse Ox 06/29/22 12:50 60 18 96 06/29/22 12:47 63 06/29/22 12:40 64 18 112/62 96 06/29/22 12:27 36.4 C L 71 16 93/58 L 97 O2 Del Method 06/29/22 12:50 Room Air 06/29/22 12:47 06/29/22 12:40 Room Air 06/29/22 12:27 Room Air Laboratory Results 06/29/22 06/29/22 06/29/22 Range/Units 14:39 13:29 13:29 WBC (4.8-10.8) K/ul RBC (4.20-5.40) M/uL Hgb (12.0-16.0) g/dl Hct (37.0-47.0) % MCV (80.0-100.0) fL MCH (25.0-34.0) pg MCHC (32.0-36.0) g/dL RDW Std Deviation (36.4-46.3) fL RDW Coeff of Peewee (11.5-14.5) % Plt Count (130-400) K/uL MPV (9.4-12.4) fL Immature Gran % (Auto) % Neut % (Auto) % Lymph % (Auto) % Quay % (Auto) % Eos % (Auto) % Baso % (Auto) % Neut # (Auto) (1.40-6.50) K/uL Lymph # (Auto) (1.2-3.4) K/uL Quay # (Auto) (0.11-0.59) K/uL Eos # (Auto) (0-0.50) K/uL Baso # (Auto) (0-0.2) K/uL Immature Gran # (Auto) (0.01-0.20) K/uL Polychromasia Ovalocytes PT 10.3 (9.0-12.0) Seconds INR 1.0 (0.9-1.1) APTT 21.9 (21.0-31.0) Seconds PTT Ratio 0.8 Sodium 139 (136-145) mmol/L Potassium 3.7 (3.5-5.1) mmol/L Chloride 106 (98-107) mmol/L Carbon Dioxide 29 (21-32) mmol/L Anion Gap 4 (3-11) BUN 13 (6-23) mg/dl Creatinine 0.83 (0.6-1.2) mg/dl Est Cr Clr Drug Dosing 56.5 ml/min Est GFR ( Amer) 76.1 ml/min Est GFR (Non-Af Amer) 65.7 ml/min BUN/Creatinine Ratio 15.7 (10-20) Glucose 121 H (70-99(Fasting)) mg/dl Calcium 8.9 (8.5-10.1) mg/dl Iron 80 (35-150) mcg/dl Transferrin 233 (200-360) mg/dl Ferritin 52.2 (8-388) ng/ml Total Bilirubin 0.5 (0.2-1.0) mg/dl AST 31 (13-39) U/L ALT 13 (7-52) U/L Alkaline Phosphatase 45 (34-104) U/L Troponin I High Sens 8.1 (0-14) pg/ml Total Protein 6.3 (6.0-8.3) gm/dl Albumin 3.3 L (3.4-5.0) gm/dl Globulin 3.0 (2.5-4.0) gm/dl Albumin/Globulin Ratio 1.1 (0.9-2) Vitamin B12 235 (180-914) pg/ml Folate > 22.30 (>5.38) ng/ml Blood Type Antibody Screen Crossmatch 06/29/22 06/29/22 Range/Units 13:29 13:29 WBC 9.46 (4.8-10.8) K/ul RBC 2.49 L (4.20-5.40) M/uL Hgb 6.6 L* (12.0-16.0) g/dl Hct 22.0 L (37.0-47.0) % MCV 88.4 (80.0-100.0) fL MCH 26.5 (25.0-34.0) pg MCHC 30.0 L (32.0-36.0) g/dL RDW Std Deviation 63.7 H (36.4-46.3) fL RDW Coeff of Peewee 20.3 H (11.5-14.5) % Plt Count 268 (130-400) K/uL MPV 9.8 (9.4-12.4) fL Immature Gran % (Auto) 0.6 % Neut % (Auto) 71.2 % Lymph % (Auto) 16.9 % Quay % (Auto) 8.5 % Eos % (Auto) 2.2 % Baso % (Auto) 0.6 % Neut # (Auto) 6.73 H (1.40-6.50) K/uL Lymph # (Auto) 1.60 (1.2-3.4) K/uL Quay # (Auto) 0.80 H (0.11-0.59) K/uL Eos # (Auto) 0.21 (0-0.50) K/uL Baso # (Auto) 0.06 (0-0.2) K/uL Immature Gran # (Auto) 0.06 (0.01-0.20) K/uL Polychromasia 1+ Ovalocytes 1+ PT (9.0-12.0) Seconds INR (0.9-1.1) APTT (21.0-31.0) Seconds PTT Ratio Sodium (136-145) mmol/L Potassium (3.5-5.1) mmol/L Chloride (98-107) mmol/L Carbon Dioxide (21-32) mmol/L Anion Gap (3-11) BUN (6-23) mg/dl Creatinine (0.6-1.2) mg/dl Est Cr Clr Drug Dosing ml/min Est GFR ( Amer) ml/min Est GFR (Non-Af Amer) ml/min BUN/Creatinine Ratio (10-20) Glucose (70-99(Fasting)) mg/dl Calcium (8.5-10.1) mg/dl Iron (35-150) mcg/dl Transferrin (200-360) mg/dl Ferritin (8-388) ng/ml Total Bilirubin (0.2-1.0) mg/dl AST (13-39) U/L ALT (7-52) U/L Alkaline Phosphatase (34-104) U/L Troponin I High Sens (0-14) pg/ml Total Protein (6.0-8.3) gm/dl Albumin (3.4-5.0) gm/dl Globulin (2.5-4.0) gm/dl Albumin/Globulin Ratio (0.9-2) Vitamin B12 (180-914) pg/ml Folate (>5.38) ng/ml Blood Type B Positive Antibody Screen NEGATIVE Crossmatch See Detail
[2022-06-29 15:44] LABS: Vitamin B12 235 pg/ml (180-914)
--- NOTE | 2022-06-29 15:44 | History & Physical Report ---
Date of Service June 29, 2022 Assessment & Plan (1) Anemia: Plan: Admit to [facility] with telemetry Patient presenting by referral of PCP for evaluation of anemia. Patient had preop labs on 05/29/2022 that showed Hgb 9.3. Noted hemoglobin has been declining since 06/2021 (13.1--> 11.9--> 10.8). Patient was started on iron replacement about 2 weeks prior to surgery. On 06/26/2022, patient underwent right total hip revision to a constrained liner. Hgb on 06/26 was 10.1 and on POD#1 Hgb 7.1. Patient was discharged home and had outpatient labs drawn with home health yesterday showing hgb < 7.0 Patient reports stools have been dark since starting iron replacement, no worsening dark stools or bright red bleeding per rectum. VSS. s/p Protonix bolus in ED, will continue PPI IV BID Iron, transferrin, ferritin, vitamin B12, folate, all WNL GI consulted as patient had anemia prior to surgery however recent hip surgery likely contributing to acute worsening anemia. Hip appears to be healing well and is soft to palpation. Consider hip CT for further evaluation of possible post op hematoma. Hold ASA BID and provide SCDs for now. Continue iron replacement. (2) History of hip surgery: Plan: S/p right total hip replacement revision to a constrained liner on 06/26/[address] Hancock Holding ASA DVT prophylaxis due to anemia, SCDs ordered (3) Hypertension: Plan: BP controlled, continue atenolol, lisinopril, amlodipine (4) Hypothyroidism: Plan: Continue levothyroxine DVT PROPHYLAXIS SCDs due to anemia I spent a total of 75 minutes coordinating, documenting, and providing care for this patient excluding time spent in the performance of separately billed services. This included personally reviewing all current laboratories and imaging studies, medication reconciliation, outpatient chart review, and discussion with specialists. History of Present Illness Chief Complaint: Referred by PCP for anemia Primary Care Provider: Carol Ledezma MD 82-year-old female with PMH hypothyroidism, dyslipidemia, HTN, GERD, CKD stage III, and other problems listed below who presents to the ED by referral PCP for evaluation of anemia. History obtained from patient, daughter at bedside, review of outpatient records. Patient had preop labs on 05/29/2022 that showed Hgb 9.3. Noted hemoglobin has been declining since 06/2021 (13.1--> 11.9--> 10.8). Patient was started on iron replacement about 2 weeks prior to surgery. On 06/26/2022, patient underwent right total hip revision to a constrained liner. Hgb on 06/26 was 10.1 and on POD#1 Hgb 7.1. Patient was discharged home and had outpatient labs drawn with home health yesterday showing Hgb <7.0. Patient was referred to the ED for further evaluation. Patient is noted to be pale but other reports she is feeling well. Daughter believes there may be some component of exertional shortness of breath however patient denies. No chest pain or palpitations. Denies lightheadedness, dizziness, diaphoresis, syncopal events. Right hip pain is well controlled with extra strength Tylenol. Noted the patient was also discharged on aspirin 81 mg twice daily for DVT prophylaxis. No other NSAID use. Patient denies fevers and chills. No urinary symptoms. In the ED, Hgb is found to be 6.6. Patient is hemodynamically stable. She was given Protonix bolus and ordered for PRBC transfusion. Allergies Allergy/AdvReac Type Severity Reaction Status Date / Time No Known Allergies Allergy Verified 06/26/22 06:30 Home Medications Medication Instructions Recorded Confirmed Type amlodipine 2.5 mg tablet (Norvasc) 2.5 mg PO QAM 03/13/20 06/29/22 History atenolol 50 mg tablet (Tenormin) 50 mg PO BID 03/13/20 06/29/22 History atorvastatin 40 mg tablet (Lipitor) 40 mg PO HS 03/13/20 06/29/22 History calcium carbonate 600 mg-vitamin 1 tab PO Q2D 03/13/20 06/29/22 History D3 20 mcg (800 unit) chewable tablet (Caltrate 600 plus D) levothyroxine 100 mcg tablet 100 mcg PO QAM 03/13/20 06/29/22 History (Synthroid) loratadine 10 mg tablet (Claritin) 10 mg PO DAILY PRN Allergy Symptoms 03/13/20 06/29/22 History multivitamin 1 tab PO QAM 03/13/20 06/29/22 History omeprazole 20 mg capsule,delayed 20 mg PO QAM 03/13/20 06/29/22 History release lisinopril 20 mg tablet 20 mg PO QAM 05/29/21 06/29/22 History omega 1-qyp-wcn-fish oil 900 1 cap PO BID 05/29/21 06/29/22 History mg-1,400 mg capsule,delayed release acetaminophen 500 mg capsule 1,000 mg PO TID Pain 30 days #180 06/24/22 06/29/22 Rx caps aspirin 81 mg tablet,delayed 81 mg PO BID 30 days #60 tabs 06/24/22 06/29/22 Rx release (Jose Low Dose Aspirin) ondansetron HCl 4 mg tablet 4 mg PO Q6 PRN nausea #20 tabs 06/24/22 06/29/22 Rx sennosides 8.6 mg-docusate sodium 1 tab-cap PO DAILY #14 tabs 06/24/22 06/29/22 Rx 50 mg tablet (Senokot-S) tramadol 50 mg tablet 50 - 100 mg PO Q6H PRN pain #40 06/24/22 06/29/22 Rx tabs ferrous sulfate 325 mg (65 mg 325 mg PO BID 06/29/22 06/29/22 History iron) tablet (FeroSul) Past Med/Surg History Medical History GERD (gastroesophageal reflux disease) Hyperlipidemia Hypertension Hypothyroidism Poor historian Surgical History Hip dislocation, right Multiple reductions (done with sedation 03/03/[address] [facility] ER) History of colonoscopy History of hip surgery 06/26/2022-right total hip replacement revision to a constrained liner History of total right hip replacement Right DENNISE (05/31/15): SAB at L3-4 (x1 attempt) at [facility] Family History Other No pertinent family history Social History Smoking Status: Never smoker Second Hand Exposure: No; Hx Alcohol Use: No Hx Substance Use: No Preferred Language: Cook Islander Communication Ability: Effective Flight Control Specialist Required: No Beliefs That Will Affect Care: None Current Living Situation: Alone Feels Safe at Home: Yes Assistive Devices: Walker Review of Systems Review of Systems: ROS per HPI, all other systems reviewed and negative Physical Exam Constitutional: WD/WN, vitals as above Eyes: PERRL, conjunctivae normal, anicteric sclerae ENMT: external ear and nose normal, oropharynx normal Respiratory: normal respiratory effort, lungs clear to auscultation Cardiovascular: Rate/Rhythm: regular rate and regular rhythm Vessels: normal peripheral pulses Extremities: no edema Gastrointestinal (Abdomen): normal bowel sounds, soft, nontender, no hepatosplenomegaly Musculoskeletal: no cyanosis or clubbing, extremities motor strength 5/5 S/p right hip surgery, dressing CDI, right hip and thigh soft to palpation Skin: no rashes, warm and dry Neurologic: PERRL, EOMI, accommodation nl, no face palsy, no dysarthria Psychiatric: A+Ox3, euthymic affect Results & Data Results & Data ([facility]) Vital Signs (Past 12 Hours) Vital Signs Temp Pulse Pulse Resp BP BP Pulse Ox 06/29/22 12:50 60 18 96 06/29/22 12:47 63 06/29/22 12:40 64 18 112/62 96 06/29/22 12:27 36.4 C L 71 16 93/58 L 97 O2 Del Method 06/29/22 12:50 Room Air 06/29/22 12:47 06/29/22 12:40 Room Air 06/29/22 12:27 Room Air Laboratory Results Short CBC 06/29/22 Range/Units 13:29 WBC 9.46 (4.8-10.8) K/ul Hgb 6.6 L* (12.0-16.0) g/dl Hct 22.0 L (37.0-47.0) % Plt Count 268 (130-400) K/uL BMP 06/29/22 13:29 Sodium 139 Potassium 3.7 Chloride 106 Carbon Dioxide 29 BUN 13 Creatinine 0.83 Glucose 121 H Calcium 8.9 Liver Function 06/29/22 Range/Units 13:29 Total Bilirubin 0.5 (0.2-1.0) mg/dl AST 31 (13-39) U/L ALT 13 (7-52) U/L Alkaline Phosphatase 45 (34-104) U/L Albumin 3.3 L (3.4-5.0) gm/dl Code Status & VTE Plan Code Status Patient is a DNR as per my discussion with her. VTE Prophylaxis Plan VTE Prophylaxis will be ordered: Yes Supervising Physician Co-Signing Physician Notes Patient was seen and examined independently. Chart reviewed. Case discussed with TRACI. Agree with assessment and plan as outlined above.
[2022-06-29] MEDS ORDERED: ACETAMINOPHEN 325 MG TAB PO PRN (17:46)
[2022-06-29] MEDS: FERROUS SULFATE 325 MG TAB PO SCH (21:21)
[2022-06-29] MEDS: ACETAMINOPHEN 500 MG TAB PO SCH (21:21)
[2022-06-29] MEDS: ATORVASTATIN 40 MG TAB PO SCH (21:21)
[2022-06-29] MEDS: PANTOprazole 40 MG in SYRINGE 0 ML IV SCH (21:21)
[2022-06-29] MEDS: ATENOLOL 50 MG TABLET PO SCH (21:22)
[2022-06-29] MEDS ORDERED: BACLOFEN 10 MG TAB PO STA (21:27)
[2022-06-30] MEDS: MELATONIN 3 MG TAB PO PRN ×2 (00:55→20:21)
[2022-06-30] MEDS: traMADol HCL 50 MG TABLET PO PRN ×2 (00:55→20:20)
[2022-06-30 07:01] LABS: Hematocrit (blood only) 28.5 % (37.0-47.0); Hemoglobin 9.3 g/dl (12.0-16.0); Mean Corpuscular Hemoglobin 28.6 pg (25.0-34.0); Mean Corpuscular Hgb Conc 32.6 g/dL (32.0-36.0); Mean Corpuscular Volume 87.7 fL (80.0-100.0); Mean Platelet Volume 9.8 fL (9.4-12.4); Platelet Count 226 K/uL (130-400); RDW Coefficient of Variation 18.2 % (11.5-14.5); RDW Standard Deviation 57.4 fL (36.4-46.3); Red Blood Count 3.25 M/uL (4.20-5.40); White Blood Count 6.96 K/ul (4.8-10.8)
[2022-06-30 08:23] LABS: Potassium 4.1 mmol/L (3.5-5.1)
[2022-06-30 08:29] LABS: BUN Creatinine Ratio 11.1 (10-20); Creatinine Clr Calc Pharmacy 57.9 ml/min; Est GFR (African American) 78.4 ml/min; Est GFR (Non-African American) 67.6 ml/min
[2022-06-30] MEDS: PANTOprazole 40 MG in SYRINGE 0 ML IV SCH ×2 (08:46→20:22)
[2022-06-30] MEDS: ACETAMINOPHEN 500 MG TAB PO SCH ×3 (08:46→20:24)
[2022-06-30] MEDS: lisinopril 20 MG TAB PO SCH (08:47)
[2022-06-30] MEDS: FERROUS SULFATE 325 MG TAB PO SCH ×2 (08:47→20:25)
[2022-06-30] MEDS: ATENOLOL 50 MG TABLET PO SCH ×2 (08:47→20:23)
[2022-06-30] MEDS: DOCUSATE SODIUM/SENNA 50/8.6MG TAB PO SCH (08:47)
[2022-06-30] MEDS: LEVOTHYROXINE SODIUM 100 MCG TABLET PO SCH (08:47)
[2022-06-30] MEDS: amLODIPine BESYLATE 5 MG TAB PO SCH (08:48)
--- NOTE | 2022-06-30 13:57 | Communication Note ---
Date of Service: June 30, 2022 patient seen while walking the whole way briefly. Appears to not have overt gi bleeding. Full consult done by GI yesterday with plans for egd/colon Saturday for further work-up of anemia. Npo after midnite saturday night.
--- NOTE | 2022-06-30 15:43 | Hospitalist Progress Note ---
Date of Service June 30, 2022 Assessment & Plan (1) Anemia: Plan: acute on chronic Hb baseline 9-10. She was started on iron supplement about 2 weeks before her surgery Acute worsening of anemia to be expected in setting of recent surgery Hb 6.6 on admission now 9.3 after 1 unit pRBC Continue PPI IV BID Agree that she needs a colonoscopy at some point, uncertain if this can be done right now in the setting of her recent right hip surgery. Will ask for orthope dic input regarding hip clearance for colonoscopy. She is not having an overt GI bleed (her dark stools likely due to being on iron) and if she can not get a colonoscopy now because of hip precautions, a colonoscopy may be done as an outpatient. Interestingly her iron studies and MCV are normal. B12 borderline low. Folate normal. If colonoscopy does not reveal a cause of anemia, she would benefit from hematology evaluation for her anemia. (2) History of hip surgery: Plan: S/p right total hip replacement revision to a constrained liner on 06/26/[address] Hancock Holding ASA DVT prophylaxis due to worsening anemia, SCDs ordered (3) Hypertension: Plan: BP controlled, continue atenolol, lisinopril, amlodipine. Hold parameters added (4) Hypothyroidism: Plan: Continue levothyroxine DVT PROPHYLAXIS SCDs due to anemia Admission and Anticipated Discharge Date Admission Date: June 29, 2022 Subjective Doing well. No chest pain, shortness of breath, nausea or vomiting Daughter reports some peeling skin around incision site and redness in her groin fold They are agreeable to proceeding with colonoscopy if she's allowed to with her recent hip surgery Received 1 unit pRBC yesterday with good response Physical Exam Physical Exam: sitting in bed, no acute distress, non toxic Respiratory: breathing comfortably on room air, no wheezing/rhonchi Cardiovascular: Regular rate and rhythm, no murmurs/rubs Gastrointestinal (Abdomen): Soft, non tender, non distended Musculoskeletal: Right hip appears bruised and swollen Skin: bruising on left leg, redness on right groin skin fold. Results & Data Results & Data ([facility]) Vital Signs (Past 12 Hours) Vital Signs Temp Pulse Pulse Resp BP BP Pulse Ox 06/30/22 11:37 36.5 C 60 16 119/71 96 06/30/22 08:10 36.8 C 68 18 137/77 98 06/30/22 07:47 56 L 06/30/22 04:01 36.5 C 60 20 105/63 92 O2 Del Method 06/30/22 11:37 Room Air 06/30/22 08:10 Room Air 06/30/22 07:47 06/30/22 04:01 Room Air
[2022-06-30] MEDS: ATORVASTATIN 40 MG TAB PO SCH (20:23)
[2022-06-30] MEDS: NYSTATIN/TRIAMCIN CR 15 GM TUBE EXT SCH (20:25)
[2022-07-01] MEDS: MoRPHine SULFATE 2 MG/ML CARP IV PRN ×3 (00:13→20:49)
[2022-07-01 06:09] LABS: Hematocrit (blood only) 30.1 % (37.0-47.0); Hemoglobin 9.4 g/dl (12.0-16.0); Mean Corpuscular Hemoglobin 28.2 pg (25.0-34.0); Mean Corpuscular Hgb Conc 31.2 g/dL (32.0-36.0); Mean Corpuscular Volume 90.4 fL (80.0-100.0); Mean Platelet Volume 9.5 fL (9.4-12.4); Platelet Count 235 K/uL (130-400); RDW Coefficient of Variation 19.3 % (11.5-14.5); RDW Standard Deviation 58.7 fL (36.4-46.3); Red Blood Count 3.33 M/uL (4.20-5.40); White Blood Count 5.76 K/ul (4.8-10.8)
--- NOTE | 2022-07-01 08:05 | Progress Notes ---
DATE OF SERVICE: 07/01/2022 SUBJECTIVE: An 82-year-old female postop day 5 from right hip revision to a constrained liner. She was discharged to home and then had a repeat H and H and brought back to the hospital for anemia. Shaina nagy has been transfused blood. She is feeling fine this morning. Really never had much in the way of symptoms. Denies any chest pain or shortness of breath. Some moderate hip pain at times. OBJECTIVE: VITAL SIGNS: Temperature 36.7. Vital signs are stable. PHYSICAL EXAMINATION: GENERAL: Physical exam shows a pleasant, elderly female. She is sitting in her bedside and looks co mfortable. EXTREMITIES: Examination of the right hip reveals the leg lengths are equal. Dressing is in place. Just a little bit of serous drainage. A little bruising at the incision site as well. It is well a pproximated. She is neurologically intact. LABORATORY DATA: Hemoglobin 9.4. Hematocrit 30.1. ASSESSMENT AND PLAN: An 82-year-old female postoperative day 5 from a revision arthroplasty and conv ersion to a constrained liner admitted with anemia. She has been relatively asymptomatic. Her hemog lobin looks stable to me. GI is hoping to do a colonoscopy. It would be best if we could hold off o n this for 6 weeks having this recent hip surgery. If there is concern for active bleeding and it ne eds to be done, then we should do it. If it is more an elective basis, it would be best to wait for 6 weeks. It seems to me that her hemoglobin and hematocrit are stable. She has obviously lost some blood at the time of surgery. I do not think she is actively bleeding from her GI tract. She can co ntinue to progress activities as tolerated from my standpoint. She looks orthopedically okay for dis charge. Any orthopedic questions can be directed to me at [phone]. She just needs routine woun d care to the right hip. Should obey hip precautions. Job ID: [id number]
[2022-07-01] MEDS: FERROUS SULFATE 325 MG TAB PO SCH ×2 (08:13→19:55)
[2022-07-01] MEDS: PANTOprazole 40 MG in SYRINGE 0 ML IV SCH ×2 (08:13→19:55)
[2022-07-01] MEDS: ATENOLOL 50 MG TABLET PO SCH ×2 (08:14→19:54)
[2022-07-01] MEDS: amLODIPine BESYLATE 5 MG TAB PO SCH (08:14)
[2022-07-01] MEDS: CYANOCOBALAMIN (B-12) 100 MCG TABLET PO SCH (08:14)
[2022-07-01] MEDS: lisinopril 20 MG TAB PO SCH (08:15)
[2022-07-01] MEDS: DOCUSATE SODIUM/SENNA 50/8.6MG TAB PO SCH (08:15)
[2022-07-01] MEDS: LEVOTHYROXINE SODIUM 100 MCG TABLET PO SCH (08:16)
[2022-07-01] MEDS: ACETAMINOPHEN 500 MG TAB PO SCH ×3 (08:16→19:54)
[2022-07-01] MEDS: NYSTATIN/TRIAMCIN CR 15 GM TUBE EXT SCH ×2 (08:16→19:55)
--- NOTE | 2022-07-01 12:08 | Communication Note ---
Date of Service: July 01, 2022 contacted by the hospitalist team - her hgb has remained stable, no overt bleeding noted. per surgery - no colonoscopy at this time unless urgent. the gi team on saturday was planning for colonoscopy however given meter changes records clerk the weekend with surgery recommendation and no overt bleeding, will hold on colonoscopy at this time. her anemia is stable, no bun rise or overt hematemesis. outpatient egd/colon could be considered in 6-8 weeks for further evaluation of her anemia. if the family wants her egd done while in house, then please keep npo after midnite for possible egd tomorrow.
[2022-07-01] MEDS: POLYETHYLENE (MIRALAX) 17 GM PACK PO SCH (12:59)
--- NOTE | 2022-07-01 14:42 | XRay Report ---
KUB HISTORY: Acute generalized abdominal pain evaluate for ileus, SBO COMPARISON: None. FINDINGS: Obstructed bowel gas pattern. Vascular calcifications. 6 mm radiodensity of the right midab domen may represent a renal calculus. Pelvic basin phleboliths. No pneumoperitoneum or pneumatosis. M oderate left hip osteoarthritis. Right hip arthroplasty. IMPRESSION: Nonobstructive bowel gas pattern. ACT 112: Negative or not required by law. The above report was generated using voice recognition software. It may contain grammatical, syntax o r spelling errors. Electronically signed by: Gaston De M.D. 07/01/2022 2:40 PM
--- NOTE | 2022-07-01 15:16 | Hospitalist Progress Note ---
Date of Service July 01, 2022 Assessment & Plan (1) Anemia: Plan: acute on chronic Hb baseline 9-10. She was started on iron supplement about 2 weeks before her surgery Acute worsening of anemia to be expected in setting of recent surgery Hb 6.6 on admission then 9.3 after 2 unit pRBC. Hb 9.4 today Continue PPI IV BID Appreciate surgery input, if colonoscopy is not urgent, would recommend to wait at least 6 weeks after surgery. Discussed this with GI. Plan for EGD and colonoscopy in 6-8 weeks but if family wants, may consider EGD tomorrow if schedule allows. I discussed with her daughter, daughter has concerns that mom does not follow up with visits and wouldn't be compliant with follow up GI visit. She would prefer EGD here. Will make NPO after midnight in event EGD is possible tomorrow (2) History of hip surgery: Plan: S/p right total hip replacement revision to a constrained liner on 06/26/[address] Hancock Holding ASA DVT prophylaxis due to worsening anemia, SCDs ordered (3) Hypertension: Plan: BP controlled, continue atenolol, lisinopril, amlodipine. Hold parameters added (4) Hypothyroidism: Plan: Continue levothyroxine DVT PROPHYLAXIS SCDs due to anemia Admission and Anticipated Discharge Date Admission Date: June 29, 2022 Subjective No acute distress. No BM in several days now, yesterday had a small cm size firm BM Physical Exam Physical Exam: Pleasant, comfortable, no acute distress Respiratory: breathing comfortably on room air, no wheezing/rhonchi/rales Cardiovascular: regular rate and rhythm Gastrointestinal (Abdomen): hypoactive, soft, non tender Musculoskeletal: No edema Neurologic: awake, alert, spontaneously moving extremities Results & Data Results & Data ([facility]) Vital Signs (Past 12 Hours) Vital Signs Temp Pulse Resp BP BP Pulse Ox O2 Del Method 07/01/22 11:17 36.7 C 61 18 138/77 93 Room Air 07/01/22 07:33 36.7 C 58 L 18 136/78 95 Room Air 07/01/22 03:20 36.7 C 56 L 20 123/77 94 Room Air
[2022-07-01] MEDS: ATORVASTATIN 40 MG TAB PO SCH (19:55)
[2022-07-01] MEDS: MELATONIN 3 MG TAB PO PRN (20:49)
[2022-07-02] MEDS: MoRPHine SULFATE 2 MG/ML CARP IV PRN (02:41)
[2022-07-02 07:08] LABS: Hematocrit (blood only) 30.3 % (37.0-47.0); Hemoglobin 9.6 g/dl (12.0-16.0); Mean Corpuscular Hemoglobin 28.3 pg (25.0-34.0); Mean Corpuscular Hgb Conc 31.7 g/dL (32.0-36.0); Mean Corpuscular Volume 89.4 fL (80.0-100.0); Mean Platelet Volume 9.7 fL (9.4-12.4); Platelet Count 264 K/uL (130-400); RDW Coefficient of Variation 19.9 % (11.5-14.5); RDW Standard Deviation 60.2 fL (36.4-46.3); Red Blood Count 3.39 M/uL (4.20-5.40); White Blood Count 6.95 K/ul (4.8-10.8)
[2022-07-02 07:26] LABS: BUN Creatinine Ratio 16.7 (10-20); Calcium 9.1 mg/dl (8.5-10.1); Creatinine Clr Calc Pharmacy 65.1 ml/min; Est GFR (African American) 90.4 ml/min; Magnesium 1.7 mg/dl (1.7-2.4); Potassium 3.8 mmol/L (3.5-5.1)
[2022-07-02 07:39] LABS: Prothrombin Time 10.5 Seconds (9.0-12.0)
[2022-07-02] MEDS ORDERED: PROPOFOL IV EMULSION 10 MG/ML 20 ML VIAL IV ONE (08:24)
[2022-07-02] MEDS ORDERED: ONDANSETRON INJ 2 MG/ML 2 ML VIAL ONE (08:24)
[2022-07-02] MEDS ORDERED: LIDOCAINE 2% MPF LOCAL 5 ML VIAL INFIL ONE (08:24)
--- NOTE | 2022-07-02 08:31 | History & Physical Report ---
Date of Service July 02, 2022 Assessment & Plan (1) History of revision of total replacement of right hip joint: (2) Anemia: Plan: Plan for EGD today for further evaluation. Admission and Anticipated Discharge Date Admission Date: June 29, 2022 History of Present Illness Chief Complaint: 82 y/o F with recent revision hip arthroplasty on 06/26 admitted with anemia. GI planning for EGD today for further evaluation of anemia. No overt signs of GI bleeding. Stool brown and formed. No overt signs of bleeding including melena, hematemesis, or hematochezia. Primary Care Provider: Carol Ledezma MD 82 y/o F with recent hip replacement admitted with anemia. GI planning for EGD today for further evaluation of anemia. No overt signs of GI bleeding. Stool brown and formed. Allergies Allergy/AdvReac Type Severity Reaction Status Date / Time No Known Allergies Allergy Verified 06/26/22 06:30 Home Medications Medication Instructions Recorded Confirmed Type amlodipine 2.5 mg tablet (Norvasc) 2.5 mg PO QAM 03/13/20 06/29/22 History atenolol 50 mg tablet (Tenormin) 50 mg PO BID 03/13/20 06/29/22 History atorvastatin 40 mg tablet (Lipitor) 40 mg PO HS 03/13/20 06/29/22 History calcium carbonate 600 mg-vitamin 1 tab PO Q2D 03/13/20 06/29/22 History D3 20 mcg (800 unit) chewable tablet (Caltrate 600 plus D) levothyroxine 100 mcg tablet 100 mcg PO QAM 03/13/20 06/29/22 History (Synthroid) loratadine 10 mg tablet (Claritin) 10 mg PO DAILY PRN Allergy Symptoms 03/13/20 06/29/22 History multivitamin 1 tab PO QAM 03/13/20 06/29/22 History omeprazole 20 mg capsule,delayed 20 mg PO QAM 03/13/20 06/29/22 History release lisinopril 20 mg tablet 20 mg PO QAM 05/29/21 06/29/22 History omega 5-bqg-ytm-fish oil 900 1 cap PO BID 05/29/21 06/29/22 History mg-1,400 mg capsule,delayed release acetaminophen 500 mg capsule 1,000 mg PO TID Pain 30 days #180 06/24/22 06/29/22 Rx caps aspirin 81 mg tablet,delayed 81 mg PO BID 30 days #60 tabs 06/24/22 06/29/22 Rx release (Jose Low Dose Aspirin) ondansetron HCl 4 mg tablet 4 mg PO Q6 PRN nausea #20 tabs 06/24/22 06/29/22 Rx sennosides 8.6 mg-docusate sodium 1 tab-cap PO DAILY #14 tabs 06/24/22 06/29/22 Rx 50 mg tablet (Senokot-S) tramadol 50 mg tablet 50 - 100 mg PO Q6H PRN pain #40 06/24/22 06/29/22 Rx tabs ferrous sulfate 325 mg (65 mg 325 mg PO BID 06/29/22 06/29/22 History iron) tablet (FeroSul) Past Med/Surg History Medical History GERD (gastroesophageal reflux disease) Hyperlipidemia Hypertension Hypothyroidism Poor historian Surgical History Hip dislocation, right Multiple reductions (done with sedation 03/03/22 at [facility] ER) History of colonoscopy History of hip surgery 06/26/2022-right total hip replacement revision to a constrained liner History of total right hip replacement Right DENNISE (05/31/15): SAB at L3-4 (x1 attempt) at [facility] Family History Other No pertinent family history Social History Smoking Status: Never smoker Second Hand Exposure: No; Hx Alcohol Use: No Hx Substance Use: No Preferred Language: Bengali Communication Ability: Effective Collection Systems Worker Required: No Beliefs That Will Affect Care: None Current Living Situation: Alone Feels Safe at Home: Yes Assistive Devices: Walker Review of Systems All systems reviewed & are unremarkable except as noted in HPI & below Physical Exam Constitutional: WD/WN, vitals as above Respiratory: normal respiratory effort, lungs clear to auscultation Cardiovascular: RRR, no murmur, no edema Gastrointestinal (Abdomen): normal bowel sounds, soft, nontender, no hepatosplenomegaly Psychiatric: A+Ox3, euthymic affect Results & Data ([facility]) Vital Signs (Past 12 Hours) Vital Signs Temp Pulse Resp BP BP Pulse Ox O2 Del Method 07/02/22 08:10 36.8 C 65 16 143/85 H 98 Room Air 07/02/22 07:40 37.3 C 56 L 18 120/76 91 Room Air 07/02/22 03:26 36.5 C 95 H 18 150/86 H 96 Room Air 07/01/22 22:36 36.9 C 64 18 112/71 96 Room Air Code Status & VTE Plan VTE Prophylaxis Plan VTE Prophylaxis will be ordered: Yes (2) Anemia Anemia type: unspecified type Qualified Code(s): D64.9 - Anemia, unspecified
--- NOTE | 2022-07-02 08:32 | Anesthesiology Consultation ---
Date of Service July 02, 2022 Assessment & Plan Chart Review Chart Review: Acceptable Risk for Surgery and Patient NOT seen in Pre Admission Testing Consults Requested none ASA ASA3 Proposed Anesthesia Anesthesia Type: MAC Risk / Benefits Reviewed With: PT / POA / Parent / Guardian, Accepts Plan and Informed Consent Obtained History Surgery Operation Date: 07/02/22 16:00 Proposed Procedures p Colonoscopy EGD Adalebrto Glover, Height/Weight Height: 5 ft 6 in Weight: 82.3 kg Allergies Allergy/AdvReac Type Severity Reaction Status Date / Time No Known Allergies Allergy Verified 06/26/22 06:30 Medications Home Medications Medication Instructions Recorded Confirmed Last Taken amlodipine 2.5 mg tablet (Norvasc) 2.5 mg PO QAM 03/13/20 06/29/22 06/26/22 05:00 atenolol 50 mg tablet (Tenormin) 50 mg PO BID 03/13/20 06/29/22 06/26/22 05:00 atorvastatin 40 mg tablet (Lipitor) 40 mg PO HS 03/13/20 06/29/22 06/25/22 20:00 calcium carbonate 600 mg-vitamin 1 tab PO Q2D 03/13/20 06/29/22 06/25/22 08:00 D3 20 mcg (800 unit) chewable tablet (Caltrate 600 plus D) levothyroxine 100 mcg tablet 100 mcg PO QAM 03/13/20 06/29/22 06/26/22 05:00 (Synthroid) loratadine 10 mg tablet (Claritin) 10 mg PO DAILY PRN Allergy Symptoms 03/13/20 06/29/22 06/25/22 08:00 multivitamin 1 tab PO QAM 03/13/20 06/29/22 06/26/22 05:00 omeprazole 20 mg capsule,delayed 20 mg PO QAM 03/13/20 06/29/22 06/26/22 05:00 release lisinopril 20 mg tablet 20 mg PO QAM 05/29/21 06/29/22 06/25/22 08:00 omega 3-xmr-ttn-fish oil 900 1 cap PO BID 05/29/21 06/29/22 06/12/22 mg-1,400 mg capsule,delayed release acetaminophen 500 mg capsule 1,000 mg PO TID Pain 30 days #180 06/24/22 06/29/22 Unknown caps aspirin 81 mg tablet,delayed 81 mg PO BID 30 days #60 tabs 06/24/22 06/29/22 06/25/22 08:00 release (Jose Low Dose Aspirin) ondansetron HCl 4 mg tablet 4 mg PO Q6 PRN nausea #20 tabs 06/24/22 06/29/22 Unknown sennosides 8.6 mg-docusate sodium 1 tab-cap PO DAILY #14 tabs 06/24/22 06/29/22 Unknown 50 mg tablet (Senokot-S) tramadol 50 mg tablet 50 - 100 mg PO Q6H PRN pain #40 06/24/22 06/29/22 Unknown tabs ferrous sulfate 325 mg (65 mg 325 mg PO BID 06/29/22 06/29/22 Unknown iron) tablet (FeroSul) Active Medications Generic Name Dose Route Start Last Admin Trade Name Freq PRN Reason Stop Dose Admin Acetaminophen 1,000 mg 06/29/22 21:00 07/01/22 19:54 Acetaminophen 500 Mg Tab PO 07/29/22 20:59 1,000 mg TID DARIO Administration Amlodipine Besylate 2.5 mg 06/30/22 09:00 07/01/22 08:14 Amlodipine Besylate 5 Mg Tab PO 07/30/22 08:59 2.5 mg QAM DARIO Administration Atenolol 50 mg 06/29/22 21:00 07/01/22 19:54 Atenolol 50 Mg Tablet PO 07/29/22 20:59 50 mg BID DARIO Administration Atorvastatin Calcium 40 mg 06/29/22 21:00 07/01/22 19:55 Atorvastatin 40 Mg Tab PO 07/29/22 20:59 40 mg HS DARIO Administration Cyanocobalamin 100 mcg 07/01/22 09:00 07/01/22 08:14 Cyanocobalamin (B-12) 100 Mcg Tablet PO 07/31/22 08:59 100 mcg QAM DARIO Administration Ferrous Sulfate 325 mg 06/29/22 21:00 07/01/22 19:55 Ferrous Sulfate 325 Mg Tab PO 07/29/22 20:59 325 mg BID DARIO Administration Pantoprazole Sodium 40 mg/ 10 mls @ 5 mls/min 06/29/22 21:00 07/01/22 19:55 Syringe IV 07/29/22 20:59 5 mls/min BID DARIO Administration Levothyroxine Sodium 100 mcg 06/30/22 09:00 07/01/22 08:16 Levothyroxine Sodium 100 Mcg Tablet PO 07/30/22 08:59 100 mcg QAM DARIO Administration Lisinopril 20 mg 06/30/22 09:00 07/01/22 08:15 Lisinopril 20 Mg Tab PO 07/30/22 08:59 20 mg QAM DARIO Administration Melatonin 3 mg 06/30/22 00:48 07/01/22 20:49 Melatonin 3 Mg Tab PO 07/30/22 00:47 3 mg HS PRN Administration Sleep Morphine Sulfate 2 mg 06/30/22 23:56 07/02/22 02:41 Morphine Sulfate 2 Mg/Ml Carp IV 07/14/22 23:55 2 mg Q3H PRN Administration Severe Pain (Scale 7, 8, 9,10) Nystatin/Triamcinolone Acetonide 1 appln 06/30/22 21:00 07/01/22 19:55 Nystatin/Triamcin Cr 15 Gm Tube EXT 07/30/22 20:59 1 appln BID DARIO Administration Polyethylene Glycol 17 gm 07/01/22 12:15 07/01/22 12:59 Polyethylene (Miralax) 17 Gm Pack PO 07/31/22 12:14 17 gm DAILY DARIO Administration Senna/Docusate Sodium 1 tab 06/30/22 09:00 07/01/22 08:15 Docusate Sodium/Senna 50/8.6mg Tab PO 07/30/22 08:59 1 tab DAILY DARIO Administration Tramadol HCl 50 - 100 mg 06/29/22 17:46 06/30/22 20:20 Tramadol Hcl 50 Mg Tablet PO 07/29/22 17:45 50 mg Q6H PRN Administration moderate pain NPO Date Last Intake of Fluids: 07/02/22 Date Last Intake of Solids: 07/01/22 Time Last Intake of Solids: 17:00 Past Medical History Medical History GERD (gastroesophageal reflux disease) Hyperlipidemia Hypertension Hypothyroidism Poor historian Exercise / Class Metabolic Activity II 4-5 Yardwork/Stairs/Walk up hill Past Family History Family History Other No pertinent family history Past Surgical History Surgical History Hip dislocation, right Multiple reductions (done with sedation 03/03/22 at [facility]) History of colonoscopy History of hip surgery 06/26/2022-right total hip replacement revision to a constrained liner History of total right hip replacement Right DENNISE (05/31/15): SAB at L3-4 (x1 attempt) at [facility] Past Anesthesia History No Hx of Anesthesia Complications and No Family Hx of Anesthesia Complications History of PONV No Hx of PONV and No Hx of Motion Sickness Social History Smoking Status: Never smoker Hx Alcohol Use: No Hx Substance Use: No substance use type: does not use Physical Exam Vital Signs Last Vital Signs Temp 36.8 C 07/02/22 08:10 Pulse 65 07/02/22 08:10 Resp 16 07/02/22 08:10 BP 143/85 H 07/02/22 08:10 Pulse Ox 98 07/02/22 08:10 O2 Del Method Room Air 07/02/22 08:10 Constitutional WD/WN, vitals as above Eyes PERRL, conjunctivae normal, anicteric sclerae ENMT external ear and nose normal, oropharynx normal Mouth: no dentition abnormality (a few missing) Thyromental Distance: > or= 3.5 Finger Breadths Mallampati Class: I Neck trachea midline, no thyromegaly Respiratory normal respiratory effort, lungs clear to auscultation Cardiovascular RRR, no murmur, no edema Musculoskeletal Head/Neck/Chest: normocephalic and head atraumatic Spine: normal cervical ROM and no pain with cervical ROM Extremities: extremities normal to inspection and strength 5/5 throughout; full ROM of extremities Skin no rashes, warm and dry Psychiatric A+Ox3, euthymic affect Testing Laboratory Results 07/02/22 06:25 07/02/22 06:25 PT 10.5 Seconds (9.0-12.0) 07/02/22 06:25 INR 1.0 (0.9-1.1) 07/02/22 06:25 APTT 21.9 Seconds (21.0-31.0) 06/29/22 13:29 Blood Type B Positive 06/29/22 13:29 Antibody Screen NEGATIVE 06/29/22 13:29
--- NOTE | 2022-07-02 08:55 | GI REPORT ---
Patient Name: Nano Will Procedure Date: 07/02/2022 8:29 AM Date of : 1940 Admit Type: Inpatient Age: 82 Gender: Female Attending MD: Olga Glover DO, Procedure: Upper GI endoscopy Providers: Olga Glover DO Referring MD: Guru Bergeron Md Indications: Iron deficiency anemia Patient Profile: This is an 82 year old female. Refer to note in patient chart for documentation of history and physical. Medicines: Monitored Anesthesia Care Complications: No immediate complications. Estimated Blood Loss: Estimated blood loss: none. Procedure: Pre-Anesthesia Assessment: - Prior to the procedure, a History and Physical was performed, and patient medications and allergies were reviewed. The risks and benefits of the procedure and the sedation options and risks were discussed with the patient. All questions were answered and informed consent was obtained. Patient identification and proposed procedure were verified by the physician, the nurse and the peanut shaker in the procedure room. Mental Status Examination: alert and oriented. Airway Examination: Mallampati Class II (the uvula but not tonsillar pillars visualized). Respiratory Examination: clear to auscultation. CV Examination: RRR, no murmurs, no S3 or S4. Prophylactic Antibiotics: The patient does not require prophylactic antibiotics. Prior Anticoagulants: The patient has taken no anticoagulant or antiplatelet agents. ASA Grade Assessment: III - A patient with severe systemic disease. After reviewing the risks and benefits, the patient was deemed in satisfactory condition to undergo the procedure. The anesthesia plan was to use monitored anesthesia care (MAC). Immediately prior to administration of medications, the patient was re-assessed for adequacy to receive sedatives. The physical status of the patient was re-assessed after the procedure. After obtaining informed consent, the endoscope was passed under direct vision. Throughout the procedure, the patient's blood pressure, pulse, and oxygen saturations were monitored continuously. The Endoscope was introduced through the mouth, and advanced to the second part of duodenum. The upper GI endoscopy was accomplished without difficulty. The patient tolerated the procedure well. Findings: The Z-line was regular and was found 37 cm from the incisors. A few medium-sized blebs were found in the middle third of the esophagus and in the lower third of the esophagus. The exam of the esophagus was otherwise normal. Mild inflammation characterized by erythema was found in the gastric antrum. The exam of the stomach was otherwise normal. The duodenal bulb and second portion of the duodenum were normal. Impression: - Z-line regular, 37 cm from the incisors. - A few venous blebs found in the middle and lowerd third of the esophagus. - Mild antral gastritis without any bleeding in the antrum. - Normal duodenal bulb and second portion of the duodenum. - No specimens collected. Recommendation: - Return patient to hospital vigil for ongoing care. - Resume previous diet. - Continue present medications. - PPI 40 mg once daily for gastritis. - No source found on EGD to explain patient's anemia. Consider outpatient colonoscopy in 6 weeks after hip has healed per ortho recommendations. Olga Glover, 07/02/2022 8:55:09 AM Note Initiated On: 07/02/2022 8:29 AM Number of Addenda: 0 I attest to the content of the Intraoperative Record and orders documented therein, exceptions below {[id number]}
--- NOTE | 2022-07-02 09:02 | Anesthesiology Progress Note ---
Date of Service July 02, 2022 Anesthesia Post Procedure Vital Signs Vital Signs: Temp Pulse Pulse Resp BP BP Pulse Ox 07/02/22 08:52 67 10 L 96/56 L 97 07/02/22 08:10 36.8 C 65 16 143/85 H 98 07/02/22 07:40 37.3 C 56 L 18 120/76 91 07/02/22 03:26 36.5 C 95 H 18 150/86 H 96 07/01/22 22:36 36.9 C 64 18 112/71 96 07/01/22 19:26 36.8 C 70 18 117/74 95 07/01/22 14:16 96 H 07/01/22 15:37 36.8 C 71 137/73 95 07/01/22 11:17 36.7 C 61 18 138/77 93 O2 Del Method 07/02/22 08:52 Room Air 07/02/22 08:10 Room Air 07/02/22 07:40 Room Air 07/02/22 03:26 Room Air 07/01/22 22:36 Room Air 07/01/22 19:26 Room Air 07/01/22 14:16 07/01/22 15:37 Room Air 07/01/22 11:17 Room Air Pain Intensity Right Hip: Pain Intensity: 5 Transfer of Care Handoff Completed per policy Notes Mental Status: alert / awake / arousable and participated in evaluation Patient Amnestic to Procedure: Yes Nausea / Vomiting: adequately controlled Pain: adequately controlled Airway Patency, RR, SpO2: stable & adequate BP & HR: stable & adequate Hydration State: stable & adequate Anesthetic Complications: no major complications apparent and Pt Satisfied with anesthetic care
[2022-07-02] MEDS: lisinopril 20 MG TAB PO SCH (09:49)
[2022-07-02] MEDS: ATENOLOL 50 MG TABLET PO SCH (09:49)
[2022-07-02] MEDS: amLODIPine BESYLATE 5 MG TAB PO SCH (09:49)
[2022-07-02] MEDS: PANTOprazole 40 MG in SYRINGE 0 ML IV SCH (09:50)
[2022-07-02] MEDS: POLYETHYLENE (MIRALAX) 17 GM PACK PO SCH (09:50)
[2022-07-02] MEDS: FERROUS SULFATE 325 MG TAB PO SCH (09:50)
[2022-07-02] MEDS: ACETAMINOPHEN 500 MG TAB PO SCH (09:50)
[2022-07-02] MEDS: DOCUSATE SODIUM/SENNA 50/8.6MG TAB PO SCH (09:51)
[2022-07-02] MEDS: CYANOCOBALAMIN (B-12) 100 MCG TABLET PO SCH (09:51)
[2022-07-02] MEDS: LEVOTHYROXINE SODIUM 100 MCG TABLET PO SCH (09:51)
[2022-07-02] MEDS: NYSTATIN/TRIAMCIN CR 15 GM TUBE EXT SCH (09:51)
--- NOTE | 2022-07-02 13:06 | Discharge Summary ---
Date of Service July 02, 2022 Admission HPI Per Admitting Provider 82 y/o F with recent hip replacement admitted with anemia. GI planning for EGD today for further evaluation of anemia. No overt signs of GI bleeding. Stool brown and formed. Principal Diagnosis Acute on chronic anemia Discharge Exam Appears well, no acute distress Respiratory Breathing comfortably on room air, no wheezing Cardiovascular regular rate and rhythm, no murmurs Gastrointestinal (Abdomen) soft, non tender Musculoskeletal no edema Neurologic awake, alert, spontaneously moving extremities Discharge Data Allergies Allergy/AdvReac Type Severity Reaction Status Date / Time No Known Allergies Allergy Verified 06/26/22 06:30 Consultations 06/29/22 14:25 ED Decision to Admit Stat 06/29/22 17:46 Consult Gastroenterology Routine 06/30/22 15:40 Consult Orthopedic Surgery Routine Procedures Performed Operation Date: 07/02/22 16:00 Actual Procedures p Esophagogastroduodenoscopy - Olga Glover, Hospital Course (1) Anemia: (2) History of hip surgery: S/p right total hip replacement revision to a constrained liner on 06/26/[address] Hancock (3) Hypertension: (4) Hypothyroidism: Plan Ms Nano Will is a 82 year old female who has a history of chronic anemia (unclear etiology) and recently started on oral iron, history of recent right hip surgery 06/26/2022. Post operatively, her hemoglobin which runs 9-10 at baseline was 7.1. The acute drop to be expected with her recent surgery. She did not receive transfusion. She was eventually discharged home with her family and on a follow up outpatient labwork a few days later her hemoglobin was 6.6 so she was sent to the hospital. She had 2 unit packed RBC while here with improvement of her Hb to 9.3 and subsequent days it remained stable. At the time of discharge her Hb was 9.6 For her chronic anemia workup, she had iron studies here which was normal, B12 was low normal and folate was normal. She was started on vitamin B 12 soto pplement. Her heme occult obtained in the ER was weakly positive. She was constipated while in the hospital and only had small stool fragments despite being on laxatives. Because of her post op state and hip precaution, she did not receive suppository and instead should continue with laxatives, stool softeners and ambulation to help with her constipation. Her family reports she has a history of IBS with bowel movement pattern of constipation alternated by diarrhea. She was seen by GI and initially plan for non emergent colonoscopy while here but because of her recent hip surgery, it is recommended she can follow up as an outpatient and have a colonoscopy in 6-8 weeks after she has received clearance by her orthopedic surgeon. She had an EGD here which only showed mild gastritis. She is on aspirin BID for DVT ppx from her recent hip surgery. She was previously on omeprazole 20mg daily and at discharge her PPI was increased to protonix 40mg daily. There is a possibility her colonoscopy may be unrevealing and in which case she should be referred to see a Paymaster Of Purses for evaluation of her chronic anemia. Home Health Attestation I certify that this patient is under my care and that I, or a physicians staff assistant working with me, had a face to-face encounter that meets the home health [id number] encounter requirements with this patient. The encounter with the patient was in whole, or in part, for the following medical condition, which is the primary reason for home health care (list medical condition): anemia I certify that, based on my findings, the following services are medically necessary home health services: My clinical findings support the need for the above services because: PT Assessment for Endurance / Balance / Strength PT Eval for Safety and Mobility PT Eval for Safety, Gait Training, Assistive Devices PT Gait and Balance Training, Strengthening and Safety Skilled Nsg Assessment Further, I certify that my clinical findings support that this patient is homebound (i.e. absences from home require considerable and taxing effort and are for medical reasons or spiritism services or infrequently or of short duration when for other reasons) because: Supportive Aid - Walker Transportation Assistance/Unable to Leave Home Unassisted Certification for Home Health Services: Based on the above findings, I certify that this patient is confined to the home and needs intermittent mcc care, physical therapy and/or speech therapy or continues to need occupational therapy. The patient is under my care, and I have initiated the establishment of the plan of care. This patient will be followed by a physician who will periodically review the plan of care. Total Time Total Time Spent Total Time Spent (In Minutes): 40 Discharge Plan Discharge Items Patient Disposition: Home - Home Health Services Reason For Visit: ANEMIA Discharge Diagnosis: Acute on chronic anemia Condition on Discharge: Good Activity: Resume your previous activity Non-emergency contact: Primary Care Provider and Surgeon Call non-emergency contact if: you have any medication questions Follow-up/Referrals: Carol Ledezma MD [Primary Care Provider] - (Date & Time 07/06/2022 1:40 PM Provider Ciara Briggs MD Department Family Medicine [facility] Please note that your previously scheduled appointment (for 07/03 @ 10AM) has been cancelled.) Sal Hancock MD [Physician] - Diet: Heart Healthy Addtl Attending Provider Instructions: Please practice hip precaution as previously instructed after your surgery Your iron levels were normal. Your B12 was low normal. Your folate level was normal You were started on B12 supplements. You can hold your iron supplements for now while you are constipated and talk with your primary care doctor whether this medicine should be continued Once you get clearance by your surgeon, you may have a colonoscopy in 6-8 weeks for anemia workup. Pending Studies at Discharge: No Stand-Alone Forms: My [facility] [place], Smoking Cessation Medications and DC Order Prescriptions: New polyethylene glycol 3350 [Miralax] 17 gram Powder In Packet 17 g PO DAILY PRN (Reason: Constipation) 14 Days Qty: 14 0RF nystatin-triamcinolone 100,000-0.1 unit/g-% Cream 1 applic EXT BID 7 Days Qty: 1 0RF Rx Instructions: groin folds as needed cyanocobalamin (vitamin B-12) [Vitamin B-12] 100 mcg Tablet 100 mcg PO QAM Qty: 60 0RF pantoprazole [Protonix] 40 mg tablet,delayed release (DR/EC) 40 mg PO DAILY 28 Days Qty: 28 0RF Continued tramadol 50 mg tablet 50 - 100 mg PO Q6H PRN (Reason: pain) Qty: 40 0RF Rx Instructions: Take as needed for Pain. ondansetron HCl 4 mg tablet 4 mg PO Q6 PRN (Reason: nausea) Qty: 20 1RF acetaminophen 500 mg capsule 1,000 mg PO TID 30 Days Qty: 180 0RF Rx Instructions: Take 3 times per day to lessen pain. aspirin [Jose Low Dose Aspirin] 81 mg tablet,delayed release (DR/EC) 81 mg PO BID 30 Days Qty: 60 0RF Rx Instructions: Take to prevent blood clots. sennosides-docusate sodium [Senokot-S] 8.6-50 mg tablet 1 tab-cap PO DAILY Qty: 14 0RF Rx Instructions: Take daily to prevent constipation multivitamin Tablet 1 tab PO QAM atorvastatin [Lipitor] 40 mg tablet 40 mg PO HS amlodipine [Norvasc] 2.5 mg tablet 2.5 mg PO QAM levothyroxine [Synthroid] 100 mcg tablet 100 mcg PO QAM atenolol [Tenormin] 50 mg tablet 50 mg PO BID loratadine [Claritin] 10 mg Tablet 10 mg PO DAILY PRN (Reason: Allergy Symptoms) Caltrate 600 plus D 600 mg (1,500 mg)-800 unit Tablet,Chewable 1 tab PO Q2D ferrous sulfate [FeroSul] 325 mg (65 mg iron) tablet 325 mg PO BID lisinopril 20 mg tablet 20 mg PO QAM omega 2-odh-rjd-fish oil 900-1,400 mg Capsule,Delayed Release(Dr/Ec) 1 cap PO BID Discontinued omeprazole 20 mg capsule,delayed release(DR/EC) 20 mg PO QAM Discharge Orders: Discharge Order (Routine); Ordered 07/02/22 Ordered By: Jose David Alford/Other Patient Handouts: Anemia, Iron Supplements Admission Data Admit Date/Time: 06/29/22 14:30 Attending Provider: Jose David Bergeron Admit Provider: Jose David Bergeron Primary Care Provider: Carol Ledezma Other Providers: Jose David Bergeron ; Snow Yang ; Sal Hancock ; [facility] Other Interventions: Discharge Summary Assessment (RN) Last Done: 07/02/22 12:37
== END 2022-07-02 14:14 | disposition home health service (06) | DRG 812 ==
LOC: ED 12:19 → 2N 14:30

== ENCOUNTER 2024-08-17 18:26 | Inpatient (IN) ==
[2024-08-17 19:05] LABS: Basophils # (auto) 0.06 K/uL (0.00-0.20); Basophils % (auto) 0.6 %; Eosinophils % (auto) 3.1 %; Hematocrit (blood only) 37.6 % (37.0-47.0); Hemoglobin 12.4 g/dl (12.0-16.0); Immature Granulocytes # (auto) 0.02 K/uL (0.01-0.20); Immature Granulocytes % (auto) 0.2 %; Lymphocytes # (auto) 2.33 K/uL (1.20-3.40); Lymphocytes % (auto) 24.3 %; Mean Corpuscular Hemoglobin 31.2 pg (25.0-34.0); Mean Corpuscular Volume 94.5 fL (80.0-100.0); Mean Platelet Volume 9.2 fL (9.4-12.4); Monocytes # (auto) 0.85 K/uL (0.11-0.59); Monocytes % (auto) 8.9 %; Neutrophils # (auto) 6.02 K/uL (1.40-6.50); Neutrophils % (auto) 62.9 %; Platelet Count 303 K/uL (130-400); RDW Coefficient of Variation 14.3 % (11.5-14.5); RDW Standard Deviation 49.2 fL (36.4-46.3); Red Blood Count 3.98 M/uL (4.20-5.40); White Blood Count 9.58 K/ul (4.8-10.8)
[2024-08-17 19:16] LABS: Appearance Urine Clear (Clear); Bacteria Urine Automated None Seen (None Seen); Bilirubin Urine Negative (Negative); Blood Urine 1+ (Negative); Cast Urine Automated 0-2 /lpf (0-2); Color Urine Yellow; Epithelial Cell Urine Auto 0-2 /hpf (0-2); Glucose Urine UA Negative (Negative); Ketones Urine Negative (Negative); Leukocyte Esterase Urine 2+ (Negative); Nitrite Urine Negative (Negative); Protein Urine Negative (Negative); Specific Gravity Urine 1.009 (1.000-1.030); Urobilinogen Urine Negative (Negative)
[2024-08-17 19:21] LABS: Albumin Globulin Ratio 1.3 (0.9-2); Albumin Level 3.9 gm/dl (3.4-5.0); BUN Creatinine Ratio 13.8 (10-20); Bilirubin,Total 0.4 mg/dl (0.2-1.0); Calcium 9.4 mg/dl (8.6-10.3); Creatinine Clr Calc Pharmacy 45.2 ml/min; Globulin 3.1 gm/dl (2.5-4.0); Potassium 3.7 mmol/L (3.5-5.1)
--- NOTE | 2024-08-17 20:06 | Emergency Department Note ---
Impression & Plan Osteomyelitis, Cellulitis ED Provider Note NAME: LAMINE CAMPBELL AGE: 84 SEX: F : 1940 ARRIVES VIA: Walk-In INFORMANT: [Patient][family] ED PROVIDER(S): [Frankie Lakhani MD] CHIEF COMPLAINT: Toe infection HISTORY OF PRESENT ILLNESS: The patient is an 84-year-old female who presents with about a week of drainage from the left first toe. The drainage was noticed by family through her sock. The patient herself did not notice issues and did not have any pain. There has been no fever or flulike symptoms. She has had no previous issues with this toe other than a toenail fungus. Patient was seen by her doctors office the day they noticed the drainage and was placed on doxycycline. The swelling seems a bit better but the erythema and drainage persist. They had an outpatient MRI today showing distal tuft osteomyelitis, they were referred for IV antibiotic therapy and potential surgical intervention. PMHx/PSHx/Social Hx: See Below PHYSICAL EXAM: GENERAL: Patient is in no acute distress. HEENT: No acute trauma, normocephalic atraumatic, mucous membranes moist, no nasal congestion. NECK: No stridor, no adenopathy, no meningismus, trachea is midline. LUNGS: Clear to auscultation bilaterally, no wheeze, no rhonchi, breath sounds equal. HEART: Without murmurs gallops or rubs, regular rate and rhythm. ABDOMEN: Soft, nontender, no peritonitis. EXTREMITIES: No cyanosis, full range of motion of all the joints without pain or difficulty. There is some erythema to the left great toe that extends to the distal foot. No warmth. There is some drainage from the base of the first toenail. A culture was obtained. NEUROLOGIC: Oriented x 3, no acute motor or sensory deficits, no focal weakness. SKIN: No jaundice, no diaphoresis. DIFFERENTIAL DIAGNOSIS: Osteomyelitis, cellulitis, failed outpatient management, among others. EMERGENCY DEPARTMENT PROCEDURES: MEDICAL DECISION MAKING: There is no leukocytosis. No concerning anemia. There is a normal platelet count. No bandemia. There is no renal failure or significant electrolyte abnormality. No concerning liver enzyme elevation. Urinalysis shows some potential infection with white cells present. No bacteria. MRI outpatient does show distal left first toe osteomyelitis. The patient presents with left toe drainage and erythema. She has outpatient testing showing osteomyelitis. I did obtain a culture of the drainage from the toe, this result is pending. The patient is in need of a hospital stay for IV antibiotic therapy and potential surgical intervention. I did talk to case management, the on-call hospitalist was consulted. A dose of IV Zosyn was ordered as empiric coverage. Prior/Outside records/notes reviewed: Outpatient MRI results from today showing the osteomyelitis. Imaging/x-ray results per my interpretation: Chronic Medical/Social conditions affecting care: Advanced age. Care/Management discussed with: Case management, the on-call hospitalist. Level of care consideration(s): After review of the information above and other included data: --I believe the patient requires escalation of care to admission DISPOSITION: Admission Past Med/Surg History Problem List Cellulitis (Acute) Osteomyelitis (Acute) History of revision of total replacement of right hip joint Anemia (Acute) Status post hip surgery (Acute) Anemia Hypothyroidism Hypertension History of hip surgery 06/26/2022-right total hip replacement revision to a constrained liner Hip dislocation, right Multiple reductions (done with sedation 03/03/22 at [facility] ER) Status post right hip replacement Medical History Heme positive stool Poor historian GERD (gastroesophageal reflux disease) Hyperlipidemia Surgical History Hip dislocation, right Multiple reductions (done with sedation 03/03/22 at [facility] ER) History of colonoscopy History of hip surgery 06/26/2022-right total hip replacement revision to a constrained liner History of total right hip replacement Right DENNISE (05/31/15): SAB at L3-4 (x1 attempt) at [facility] Family History Other No pertinent family history Social History Smoking Status: Never smoker Second Hand Exposure: No; Do You Dip or Chew Tobacco: No; Hx Alcohol Use: No Hx Substance Use: No Preferred Language: Gibraltarian Communication Ability: Effective Title 1 Tutor Required: No Beliefs That Will Affect Care: None Current Living Situation: Alone Feels Safe at Home: Yes Assistive Devices: Walker Allergies Allergies Allergy/AdvReac Type Severity Reaction Status Date / Time No Known Allergies Allergy Verified 08/17/24 20:12 Home Meds Home Medications Medication Instructions Recorded Confirmed atenolol 50 mg tablet (Tenormin) 25 mg PO DAILY 03/13/20 08/17/24 atorvastatin 40 mg tablet (Lipitor) 40 mg PO HS 03/13/20 08/17/24 calcium 600 mg (as carbonate)-vit 1 tab PO Q2D 03/13/20 08/17/24 D3 20 mcg (800 unit) chewable tablet (Caltrate plus D) multivitamin 1 tab PO QAM 03/13/20 08/17/24 omega 2-def-nwn-fish oil 900 1 cap PO BID 05/29/21 08/17/24 mg-1,400 mg capsule,delayed release acetaminophen 500 mg capsule 1,000 mg PO Q4H PRN Pain 08/17/24 08/17/24 alendronate 70 mg tablet 70 mg PO WK 08/17/24 08/17/24 aspirin 81 mg tablet,delayed 81 mg PO DAILY 08/17/24 08/17/24 release (Jose Low Dose Aspirin) doxycycline hyclate 100 mg capsule 100 mg PO BID 08/17/24 08/17/24 levothyroxine 88 mcg tablet 88 mcg PO DAILYBB 08/17/24 08/17/24 pantoprazole 40 mg tablet,delayed 40 mg PO QAM 08/17/24 08/17/24 release Previous Rx's Medication Instructions Recorded cyanocobalamin (vitamin B-12) 100 100 mcg PO QAM #60 tabs 07/02/22 mcg tablet (Vitamin B-12) Results & Data (ED) Vital Signs Vital Signs - 24 hr 08/17/24 18:38 Temperature 36.6 C Temperature Source Temporal Artery Scan Pulse Rate 71 Respiratory Rate 18 Respiratory Effort / Characteristics Non-Labored Spontaneous Respiratory Depth Normal Respiratory Pattern Regular Blood Pressure 140/83 Blood Pressure Mean 102 Blood Pressure Position Sitting Pulse Oximetry 95 Oxygen Delivery Method Room Air Sepsis Recent Fever Within 48 Hours No Sepsis New/Unexplained Change in Mental Status N/A Sepsis Action Taken by Nursing No Action Required Home Medications Current Medication List: was personally reviewed by me Laboratory Data Attestation: I reviewed the patient's lab results. 08/17/24 18:49 08/17/24 18:49 Lab Results 08/17/24 08/17/24 Range/Units 18:49 20:09 WBC 9.58 (4.8-10.8) K/ul RBC 3.98 L (4.20-5.40) M/uL Hgb 12.4 (12.0-16.0) g/dl Hct 37.6 (37.0-47.0) % MCV 94.5 (80.0-100.0) fL MCH 31.2 (25.0-34.0) pg MCHC 33.0 (32.0-36.0) g/dL RDW Std Deviation 49.2 H (36.4-46.3) fL RDW Coeff of [place]ee[place] 14.3 (11.5-14.5) % Plt Count 303 (130-400) K/uL MPV 9.2 L (9.4-12.4) fL Immature Gran % (Auto) 0.2 % Neut % (Auto) 62.9 % Lymph % (Auto) 24.3 % [place] % (Auto) 8.9 % Eos % (Auto) 3.1 % Baso % (Auto) 0.6 % Neut # (Auto) 6.02 (1.40-6.50) K/uL Lymph # (Auto) 2.33 (1.20-3.40) K/uL [place] # (Auto) 0.85 H (0.11-0.59) K/uL Eos # (Auto) 0.30 (0.00-0.50) K/uL Baso # (Auto) 0.06 (0.00-0.20) K/uL Immature Gran # (Auto) 0.02 (0.01-0.20) K/uL Sodium 140 (136-145) mmol/L Potassium 3.7 (3.5-5.1) mmol/L Chloride 103 (98-107) mmol/L Carbon Dioxide 33 H (21-32) mmol/L Anion Gap 4 (3-11) BUN 11 (6-23) mg/dl Creatinine 0.80 (0.6-1.2) mg/dl Est Cr Clr Drug Dosing 45.2 ml/min eGFR 72.61 BUN/Creatinine Ratio 13.8 (10-20) Glucose 107 H (70-99(Fasting)) mg/dl Calcium 9.4 (8.6-10.3) mg/dl Total Bilirubin 0.4 (0.2-1.0) mg/dl AST 28 (13-39) U/L ALT 19 (7-52) U/L Alkaline Phosphatase 59 (34-104) U/L Total Protein 7.0 (6.0-8.3) gm/dl Albumin 3.9 (3.4-5.0) gm/dl Globulin 3.1 (2.5-4.0) gm/dl Albumin/Globulin Ratio 1.3 (0.9-2) Urine Color Yellow Urine Appearance Clear (Clear) Urine pH 6.0 (4.5-7.5) Ur Specific [place] 1.009 (1.000-1.030) Urine Protein Negative (Negative) Urine Glucose (UA) Negative (Negative) Urine Ketones Negative (Negative) Urine Blood 1+ H (Negative) Urine Nitrite Negative (Negative) Urine Bilirubin Negative (Negative) Urine Urobilinogen Negative (Negative) Ur Leukocyte Esterase 2+ H (Negative) Urine WBC (Auto) 11-20 H (0-5) /hpf Urine RBC (Auto) 3-5 H (0-2) /hpf U Hyaline Cast (Auto) 0-2 (0-2) /lpf U Epithel Cells (Auto) 0-2 (0-2) /hpf Urine Bacteria (Auto) None Seen (None Seen) Nasal Screen MRSA (PCR) Negative (Negative) Administered Medications Discontinued Medications Piperacillin Sod/Tazobactam Sod (Zosyn) 4.5 gm in 100 mls @ 200 mls/hr IV NOW ONE Stop: 08/17/24 20:15 Last Infusion: 08/17/24 20:45 Dose: Infused Documented By: Admin: 08/17/24 20:07 Dose: 200 mls/hr Documented By: CEF Imaging Data Radiologist's Impression: MRI left foot without contrast: Impression #1. Focal edema in the tuft of the first distal phalanx with preserved T1 fat signal, most consistent with osteomyelitis/developing osteomyelitis. #2. Great toenail bed irregularity and edema. No discrete fluid collection. Discharge Plan Visit Data Chief Complaint: Toe Injury/Pain Stated Complaint: INFECTED TOE ED Provider: Frankie Lakhani Discharge Problem: Osteomyelitis, Cellulitis Patient Disposition: Admitted As Inpatient Condition: Good Forms Stand Alone Forms: My [facility] Prescriptions Prescriptions: No Action multivitamin Tablet 1 tab PO QAM atorvastatin [Lipitor] 40 mg tablet 40 mg PO HS atenolol [Tenormin] 50 mg tablet 25 mg PO DAILY Caltrate 600 plus D 600 mg (1,500 mg)-800 unit Tablet,Chewable 1 tab PO Q2D cyanocobalamin (vitamin B-12) [Vitamin B-12] 100 mcg Tablet 100 mcg PO QAM Qty: 60 0RF omega 8-abc-iwb-fish oil 900-1,400 mg Capsule,Delayed Release(Dr/Ec) 1 cap PO BID doxycycline hyclate 100 mg capsule 100 mg PO BID alendronate 70 mg tablet 70 mg PO WK Rx Instructions: EVERY SATURDAY levothyroxine 88 mcg tablet 88 mcg PO DAILYBB pantoprazole 40 mg tablet,delayed release (DR/EC) 40 mg PO QAM aspirin [Jose Low Dose Aspirin] 81 mg tablet,delayed release (DR/EC) 81 mg PO DAILY Rx Instructions: Take to prevent blood clots. acetaminophen 500 mg capsule 1,000 mg PO Q4H PRN (Reason: Pain) Rx Instructions: Take 3 times per day to lessen pain. Referrals Referrals: Carol Ledezma MD [Primary Care Provider] - Discharge Problem: Osteomyelitis Qualifiers: Osteomyelitis type: unspecified type Osteomyelitis location: foot Laterality: l eft Qualified Code(s): M86.9 - Osteomyelitis, unspecified Cellulitis Qualifiers: Site of cellulitis: extremity Site of cellulitis of extremity: lower extremity Laterality: left Qualified Code(s): L03.116 - Cellulitis of left lower limb
[2024-08-17] MEDS: PIPERACILLIN/TAZOBACTAM 4.5 GM/100 ML BAG IV ONE (20:07)
--- NOTE | 2024-08-17 20:08 | History & Physical Report ---
Date of Service August 17, 2024 History of Present Illness Primary Care Provider: Carol Ledezma MD Allergies Allergy/AdvReac Type Severity Reaction Status Date / Time No Known Allergies Allergy Verified 06/26/22 06:30 Home Medications Medication Instructions Recorded Confirmed Type amlodipine 2.5 mg tablet (Norvasc) 2.5 mg PO QAM 03/13/20 06/29/22 History atenolol 50 mg tablet (Tenormin) 50 mg PO BID 03/13/20 06/29/22 History atorvastatin 40 mg tablet (Lipitor) 40 mg PO HS 03/13/20 06/29/22 History calcium 600 mg (as carbonate)-vit 1 tab PO Q2D 03/13/20 06/29/22 History D3 20 mcg (800 unit) chewable tablet (Caltrate plus D) levothyroxine 100 mcg tablet 100 mcg PO QAM 03/13/20 06/29/22 History (Synthroid) loratadine 10 mg tablet (Claritin) 10 mg PO DAILY PRN Allergy Symptoms 03/13/20 06/29/22 History multivitamin 1 tab PO QAM 03/13/20 06/29/22 History lisinopril 20 mg tablet 20 mg PO QAM 05/29/21 06/29/22 History omega 7-wfm-wtt-fish oil 900 1 cap PO BID 05/29/21 06/29/22 History mg-1,400 mg capsule,delayed release acetaminophen 500 mg capsule 1,000 mg (2 x 500 mg) PO TID Pain 06/24/22 06/29/22 Rx 30 days #180 caps aspirin 81 mg tablet,delayed 81 mg PO BID 30 days #60 tabs 06/24/22 06/29/22 Rx release (Jose Low Dose Aspirin) ondansetron HCl 4 mg tablet 4 mg PO Q6 PRN nausea #20 tabs 06/24/22 06/29/22 Rx sennosides 8.6 mg-docusate sodium 1 tab-cap PO DAILY #14 tabs 06/24/22 06/29/22 Rx 50 mg tablet (Senokot-S) tramadol 50 mg tablet 50 - 100 mg (1 - 2 x 50 mg) PO Q6H 06/24/22 06/29/22 Rx PRN pain #40 tabs ferrous sulfate 325 mg (65 mg 325 mg PO BID 06/29/22 06/29/22 History iron) tablet (FeroSul) cyanocobalamin (vitamin B-12) 100 100 mcg PO QAM #60 tabs 07/02/22 Rx mcg tablet (Vitamin B-12) Past Med/Surg History Problem List History of revision of total replacement of right hip joint Anemia (Acute) Status post hip surgery (Acute) Anemia Hypothyroidism Hypertension History of hip surgery 06/26/2022-right total hip replacement revision to a constrained liner Hip dislocation, right Multiple reductions (done with sedation 03/03/22 at [facility] ER) Status post right hip replacement Medical History GERD (gastroesophageal reflux disease) Hyperlipidemia Hypertension Hypothyroidism Poor historian Surgical History Hip dislocation, right Multiple reductions (done with sedation 03/03/22 at [facility]) History of colonoscopy History of hip surgery 06/26/2022-right total hip replacement revision to a constrained liner History of total right hip replacement Right DENNISE (05/31/15): SAB at L3-4 (x1 attempt) at [facility] Family History Other No pertinent family history Social History Smoking Status: Never smoker Second Hand Exposure: No; Do You Dip or Chew Tobacco: No; Hx Alcohol Use: No Hx Substance Use: No Preferred Language: Faroese Communication Ability: Effective Cyanide Case Hardener Required: No Beliefs That Will Affect Care: None Current Living Situation: Alone Feels Safe at Home: Yes Assistive Devices: Walker Results & Data Results & Data Vital Signs (Past 12 Hours) Vital Signs Temp Pulse Resp BP Pulse Ox O2 Del Method 08/17/24 18:38 36.6 C 71 18 140/83 95 Room Air Laboratory Results Laboratory Results WBC 9.58 K/ul (4.8-10.8) 08/17/24 18:49 RBC 3.98 M/uL (4.20-5.40) L 08/17/24 18:49 Hgb 12.4 g/dl (12.0-16.0) 08/17/24 18:49 Hct 37.6 % (37.0-47.0) 08/17/24 18:49 MCV 94.5 fL (80.0-100.0) 08/17/24 18:49 MCH 31.2 pg (25.0-34.0) 08/17/24 18:49 MCHC 33.0 g/dL (32.0-36.0) 08/17/24 18:49 RDW Std Deviation 49.2 fL (36.4-46.3) H 08/17/24 18:49 RDW Coeff of Peewee 14.3 % (11.5-14.5) 08/17/24 18:49 Plt Count 303 K/uL (130-400) 08/17/24 18:49 MPV 9.2 fL (9.4-12.4) L 08/17/24 18:49 Immature Gran % (Auto) 0.2 % 08/17/24 18:49 Neut % (Auto) 62.9 % 08/17/24 18:49 Lymph % (Auto) 24.3 % 08/17/24 18:49 [place] % (Auto) 8.9 % 08/17/24 18:49 Eos % (Auto) 3.1 % 08/17/24 18:49 Baso % (Auto) 0.6 % 08/17/24 18:49 Neut # (Auto) 6.02 K/uL (1.40-6.50) 08/17/24 18:49 Lymph # (Auto) 2.33 K/uL (1.20-3.40) 08/17/24 18:49 [place] # (Auto) 0.85 K/uL (0.11-0.59) H 08/17/24 18:49 Eos # (Auto) 0.30 K/uL (0.00-0.50) 08/17/24 18:49 Baso # (Auto) 0.06 K/uL (0.00-0.20) 08/17/24 18:49 Immature Gran # (Auto) 0.02 K/uL (0.01-0.20) 08/17/24 18:49 Sodium 140 mmol/L (136-145) 08/17/24 18:49 Potassium 3.7 mmol/L (3.5-5.1) 08/17/24 18:49 Chloride 103 mmol/L (98-107) 08/17/24 18:49 Carbon Dioxide 33 mmol/L (21-32) H 08/17/24 18:49 Anion Gap 4 (3-11) 08/17/24 18:49 BUN 11 mg/dl (6-23) 08/17/24 18:49 Creatinine 0.80 mg/dl (0.6-1.2) 08/17/24 18:49 Est Cr Clr Drug Dosing 45.2 ml/min 08/17/24 18:49 eGFR 72.61 08/17/24 18:49 BUN/Creatinine Ratio 13.8 (10-20) 08/17/24 18:49 Glucose 107 mg/dl (70-99(Fasting)) H 08/17/24 18:49 Calcium 9.4 mg/dl (8.6-10.3) 08/17/24 18:49 Total Bilirubin 0.4 mg/dl (0.2-1.0) 08/17/24 18:49 AST 28 U/L (13-39) 08/17/24 18:49 ALT 19 U/L (7-52) 08/17/24 18:49 Alkaline Phosphatase 59 U/L (34-104) 08/17/24 18:49 Total Protein 7.0 gm/dl (6.0-8.3) 08/17/24 18:49 Albumin 3.9 gm/dl (3.4-5.0) 08/17/24 18:49 Globulin 3.1 gm/dl (2.5-4.0) 08/17/24 18:49 Albumin/Globulin Ratio 1.3 (0.9-2) 08/17/24 18:49 Urine Color Yellow 08/17/24 18:49 Urine Appearance Clear (Clear) 08/17/24 18:49 Urine pH 6.0 (4.5-7.5) 08/17/24 18:49 Ur Specific [place] 1.009 (1.000-1.030) 08/17/24 18:49 Urine Protein Negative (Negative) 08/17/24 18:49 Urine Glucose (UA) Negative (Negative) 08/17/24 18:49 Urine Ketones Negative (Negative) 08/17/24 18:49 Urine Blood 1+ (Negative) H 08/17/24 18:49 Urine Nitrite Negative (Negative) 08/17/24 18:49 Urine Bilirubin Negative (Negative) 08/17/24 18:49 Urine Urobilinogen Negative (Negative) 08/17/24 18:49 Ur Leukocyte Esterase 2+ (Negative) H 08/17/24 18:49 Urine WBC (Auto) 11-20 /hpf (0-5) H 08/17/24 18:49 Urine RBC (Auto) 3-5 /hpf (0-2) H 08/17/24 18:49 U Hyaline Cast (Auto) 0-2 /lpf (0-2) 08/17/24 18:49 U Epithel Cells (Auto) 0-2 /hpf (0-2) 08/17/24 18:49 Urine Bacteria (Auto) None Seen (None Seen) 08/17/24 18:49 Diagnostic Findings 1. Focal edema in the tuft of the 1st distal phalanx with preserved T1 fat signal, most consistent with osteitis/developing osteomyelitis. 2. Great toe nail bed irregularity and edema. No discrete fluid collection.
--- NOTE | 2024-08-17 21:04 | History & Physical Report ---
Date of Service August 17, 2024 Assessment & Plan (1) Cellulitis: Plan: 84 year old female with a past medical history of hypertension, hyperlipidemia, hypothyroidism, s/p right hip replacement, presenting to the emergency department with left toe infection and osteomyelitis. Mild tenderness noted over a week ago and was taken to PCP by her daughter, who is her primary caregiver. She was diagnosed with cellulitis of the toe and treated with Bactrim, now day6/ 10 of treatment. Osteomyelitis/Cellulitis: * Admit to Med/Surg * Minimal clinical improvement in left toe cellulitis with outpatient management with Bactrim * Wound culture collected-results pending * Continue Zosyn; consider adding/changing Cefepime pending c&s * MRSA swab obtained- if positive, consider switching to Dapto/Vanc treatment (2) Hypertension: Plan: History or primary hypertension, controlled with home regimen * Continue home regimen of atenolol * Goal <140/90 (3) Hypothyroidism: Plan: Hypothyroidism * Continue home regimen of levothyroxine Plan DVT Ppx: Per provider Code status: DNR/DNI PCP: Dr. Ledezma Dispo: Admit to [facility] Patient seen in collaboration with Dr. Nuñez. Please see addendum.I spent a total of [] minutes coordinating, documenting and providing care for this patient excluding time spent in the performance of separately billed services or time spent by another provider/QHP. History of Present Illness Chief Complaint: Infected Toe Primary Care Provider: Carol Ledezma MD 84 year old female with a past medical history of hypertension, hyperlipidemia, hypothyroidism, s/p right hip replacement, presenting to the emergency department with left toe infection and osteomyelitis. Mild tenderness noted over a week ago and was taken to PCP by her daughter, who is her primary caregiver. She was diagnosed with cellulitis of the toe and treated with Bactrim, receiving 6 days of treatment. The patient lives alone in an apartment complex with regular visits from her daughter. Her daughter reports the patient has had a "problem toe nail" for awhile and her mother refused to see a director of development. Today, the patient's daughter felt the infection was not improving with increased erythema to the toe and top of the foot. The patient was seen by her PCP, Xray and MRI showing osteomyelitis. Referred here for management of osteomyelitis. In the emergency department today, she was afebrile with no signs of leukocytosis. She was hemodynamically stable with no signs of hypoxia. Zosyn initiated. Wound culture obtained. History obtained from the patient with the assistance of her daughter, who was at the bedside during my exam. Allergies Allergy/AdvReac Type Severity Reaction Status Date / Time No Known Allergies Allergy Verified 08/17/24 20:12 Home Medications Medication Instructions Recorded Confirmed Type atenolol 50 mg tablet (Tenormin) 25 mg PO DAILY 03/13/20 08/17/24 History atorvastatin 40 mg tablet (Lipitor) 40 mg PO HS 03/13/20 08/17/24 History calcium 600 mg (as carbonate)-vit 1 tab PO Q2D 03/13/20 08/17/24 History D3 20 mcg (800 unit) chewable tablet (Caltrate plus D) multivitamin 1 tab PO QAM 03/13/20 08/17/24 History omega 4-dbj-onr-fish oil 900 1 cap PO BID 05/29/21 08/17/24 History mg-1,400 mg capsule,delayed release cyanocobalamin (vitamin B-12) 100 100 mcg PO QAM #60 tabs 07/02/22 08/17/24 Rx mcg tablet (Vitamin B-12) acetaminophen 500 mg capsule 1,000 mg PO Q4H PRN Pain 08/17/24 08/17/24 History alendronate 70 mg tablet 70 mg PO WK 08/17/24 08/17/24 History aspirin 81 mg tablet,delayed 81 mg PO DAILY 08/17/24 08/17/24 History release (Jose Low Dose Aspirin) doxycycline hyclate 100 mg capsule 100 mg PO BID 08/17/24 08/17/24 History levothyroxine 88 mcg tablet 88 mcg PO DAILYBB 08/17/24 08/17/24 History pantoprazole 40 mg tablet,delayed 40 mg PO QAM 08/17/24 08/17/24 History release Past Med/Surg History Problem List Cellulitis (Acute) Osteomyelitis (Acute) History of revision of total replacement of right hip joint Anemia (Acute) Status post hip surgery (Acute) Anemia Hypothyroidism Hypertension History of hip surgery 06/26/2022-right total hip replacement revision to a constrained liner Hip dislocation, right Multiple reductions (done with sedation 03/03/22 at [facility] ER) Status post right hip replacement Medical History Heme positive stool Poor historian GERD (gastroesophageal reflux disease) Hyperlipidemia Surgical History History of colonoscopy History of total right hip replacement Right DENNISE (05/31/15): SAB at L3-4 (x1 attempt) at [facility] Family History Other No pertinent family history Social History Smoking Status: Never smoker Tobacco Type: Declines Second Hand Exposure: No; Do You Dip or Chew Tobacco: No; Tobacco Cessation Education Requested by Patient: No Hx Alcohol Use: No Hx Substance Use: No Preferred Language: Hungarian Communication Ability: Effective Deliverer Food Required: No Beliefs That Will Affect Care: None Current Living Situation: Family Current Living Situation Comment: With daughter Mariah Other Information That Helps Us Care for You: No Feels Safe at Home: Yes Safety Concerns: Feels Safe At This Time Assistive Devices: Cane Review of Systems Review of Systems: All systems reviewed & are unremarkable except as noted in HPI & below Physical Exam Physical Exam: VITALS: Reviewed. WEIGHT/BMI reviewed. GEN: Healthy appearing, well-developed, NAD. PSYCH: Good Judgment. AOx3. Normal memory, mood, and affect. HEENT -Head: NC/AT; -Eyes: PERRL, EOMI. No discharge or redn ess; -Ears: External ears are normal. Normal TMs. -Nose: Normal nares. -Mouth and throat: MMM. Normal gums, muc janeth, palate,. Good dentition. NECK: Supple, with no masses. CV: RRR, no m/r/g. LUNGS: CTAB, no w/r/c. ABD: Soft, NT/ND, NBS, no masses or organomegaly. : N/A SKIN: Left great toe +swelling, +erythema, tender, no active drainage. MSK: No deformities, Normal gait. EXT: No clubbing, cyanosis, or edema. NEURO: Ambulating with no limitations. Normal muscle strength and tone. No focal deficits. Results & Data Results & Data Vital Signs (Past 12 Hours) Vital Signs Temp Pulse Resp BP Pulse Ox O2 Del Method 08/17/24 18:38 36.6 C 71 18 140/83 95 Room Air Laboratory Results Short CBC 08/17/24 Range/Units 18:49 WBC 9.58 (4.8-10.8) K/ul Hgb 12.4 (12.0-16.0) g/dl Hct 37.6 (37.0-47.0) % Plt Count 303 (130-400) K/uL BMP 08/17/24 18:49 Sodium 140 Potassium 3.7 Chloride 103 Carbon Dioxide 33 H BUN 11 Creatinine 0.80 Glucose 107 H Calcium 9.4 Liver Function 08/17/24 Range/Units 18:49 Total Bilirubin 0.4 (0.2-1.0) mg/dl AST 28 (13-39) U/L ALT 19 (7-52) U/L Alkaline Phosphatase 59 (34-104) U/L Albumin 3.9 (3.4-5.0) gm/dl Urine 08/17/24 Range/Units 18:49 Urine Color Yellow Urine Appearance Clear (Clear) Urine pH 6.0 (4.5-7.5) Ur Specific [place] 1.009 (1.000-1.030) Urine Protein Negative (Negative) Urine Glucose (UA) Negative (Negative) Code Status & VTE Plan Code Status DNR Supervising Physician Co-Signing Physician Notes IM ATTENDING : Patient seen and examined. History obtained from patient, family, and records. Concur with salient points upon review of preceding documentation by [facility]. In addition: Outpatient left foot MRI today showed Focal edema in the tuft of the first distal phalanx with preserved T1 fat signal, most consistent with osteitis/developing osteomyelitis. Great toe nail bed irregularity and edema. No discrete fluid collection. I take responsibility for plan of care below. FINAL ASSESSMENT AND PLAN as follows : Left great toe osteomyelitis Underlying PVD Failed outpatient doxycycline treatment No sepsis for now Hypertension, stable Hypothyroidism, euthyroid as of recent outpatient TSH Memory impairment as per records, patient mentating at baseline. Admit to [facility] Follow wound CS done at the ER, cefepime ABIs given history PVD Podiatry consult DVT prophylaxis. Teds re: possible procedure, SCDs contraindicated given history of PVD DNR as per patient prior directives. Patient daughter requesting updates providers. Ms. Britney Garcias, contact #[phone]. I spent a total of 30 minutes coordinating, documenting, and providing care for this patientexcludingtime spent by another provider/QHP. Text document was generated using Airph[employer] voice recognition software. It may contain grammatical or spelling errors. Kindly contact undersigned for clarification of any documentation item in question. (1) Cellulitis Laterality: left Site of cellulitis: extremity Site of cellulitis of extremity: lower extremity Qualified Code(s): L03.116 - Cellulitis of left lower limb
[2024-08-17] MEDS ORDERED: PROMETHAZINE 6.25 MG/50.25 ML BAG IV PRN (21:55)
--- NOTE | 2024-08-18 00:40 | Ultrasound Report ---
Exam(s): US TOM EXAM: US Ankle-Brachial Index (TOM), 1 or 2 Levels CLINICAL HISTORY: Reason for exam: poorly healing wound, hx pvd. TECHNIQUE: Limited bilateral and noninvasive physiological study of the upper or lower extremity arteries. Bidirectional, Doppler and pressure waveform recording with analysis at 1-2 levels. COMPARISON: No relevant prior studies available. FINDINGS: Right TOM: 0.53. (Normal range is between 0.90 and 1.40.) Left TOM: 0.54. (Normal range is between 0.90 and 1.40.) IMPRESSION: Findings compatible with moderate peripheral vascular disease in the lower extremities bilaterally. Electronically signed by: Jose Alberto Bales MD 08/18/24 00:39 AM
--- OUTSIDE RECORDS SUMMARY | 2024-08-18 00:53 | External Medical Summary | Summary of Care ---
Author Name Unknown Organization [facility] Address [address] [place] [address] Phone [phone] Care Team Providers Care Hanging Flags Decorator Name Role Phone Carol Ledezma MD Primary Care Provide r Encounter Details Date Type Department Care Team (Late st Contact Info) Description 05/18/2024 Population Health External Data Unspecified Department Allergies Active Allergy Reactions Criticality Noted Date Comments No Known Drug Allergy 10/27/2002 documented as of this encounter (statuses as of 05/18/2024) Medications Multiple Vitamins-Mineral s (DAILY MULTIVITAMIN) CAPS Take 1 Cap by mouth daily. 100 Cap 0 6 Active fish oil concentrate (OMEGA-3) 1000 MG CAPS Take 1 Cap by mouth 2 times a day. 60 Cap 0 6 Active Aspirin 81 MG Tablet Take 1 Tablet by mouth in the morning. Delayed release. 3 Active Calcium Carbonate-Vitami n D 600-400 MG-UNIT Oral Tablet Take 1 Tablet by mouth every other day. 30 Tab 8 Active Cyanocobalamin 100 MCG Oral Tablet Take 1 Tablet by mouth in the morning. 3 Active Acetaminophen 500 MG Oral Tablet (Tylenol) Take 2 Tablets by mouth every 8 hours as needed for Pain, Moderate. 3 Active diphenhydrAMINE HCl 50 MG Oral Tablet Take 1 Tablet by mouth in the morning. Takes for allergies. Active Lisinopril 20 MG Oral Tablet (Prinivil)Indica tions:HTN, goal below 140/90 TAKE ONE TABLET BY MOUTH EVERY DAY 90 Tablet 3 4 Active Alendronate Sodium 70 MG Oral Tablet (Fosamax) Take 1 Tablet by mouth once a week. with 8 oz. water 30 minutes before first meal of the day. Remain upright for 30 min after taking tablet 15 Tablet 3 4 Active Levothyroxine Sodium 88 MCG Oral Tablet (Levoxyl)Indicat ions:Hypothyroid ism Take 1 Tablet by mouth in the morning. (at least 30 min prior to breakfast or other meds). 30 Tablet 11 4 Active Atorvastatin Calcium 40 MG Oral Tablet (Lipitor)Indicat ions:Dyslipidemi a, goal LDL below 130 TAKE ONE TABLET BY MOUTH EVERY DAY 90 Tablet 1 4 Active Atenolol 50 MG Oral Tablet (Tenormin)Indica tions:HTN, goal below 140/90 Take 1 Tablet by mouth in the morning. 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 HTN, GOAL BELOW 140/90 03/04/2009 Overview (03/04/2009): Modified per HTN Taxonomy. Cervicalgia 11/04/2002 Hypothyroidism documented as of this encounter (statuses as of 05/18/2024) Resolved Problems Problem Noted Date Diagnosed Date Resolved Date Chronic kidney disease, stage 3a 09/06/2020 02/26/2023 Overview: Per CKD protocol Hypertensive kidney disease with chronic kidney disease stage III 07/21/2018 03/10/2020 Overview: Per CKD protocol Kidney disease, chronic, sta ge III (GFR 30-59 ml/min) 08/06/2017 08/06/2018 Overview: Per CKD protocol #1 Primary osteoarthritis of right hip 02/09/2015 05/17/2017 Dyslipidemia, goal LDL below 160 08/08/2011 09/16/2014 ADVANCE DIRECTIVE INFORMATION 11/15/2005 03/02/2024 Overview (11/15/2005): Yes, Patient instructed to provide copy of advance directive for provider to review and to be scanned into Electronic Medical Record Mixed dyslipidemia 01/30/2003 9 Overview (04/05/2009): Per Lipid Taxonomy. BENIGN HYPERTENSION 11/04/2002 03/04/20 09 Overview (03/04/2009): Modified per HTN Taxonomy. CERVICAL DISC DEGEN 11/04/2002 12/27/19 18 Menopause 09/16/2014 HTN, goal below 140/90 05/27 Overview (05/27/2008): Resolved per Duplicate Protocol #2. Dyslipidemia, goal to be determined 03/23/2009 Overview (03/23/2009): Per Lipid Taxonomy Hypothyroidism 05/27/2008 Overview (05/27/2008): Resolved per Duplicate Protocol #2. HTN, goal below 140/90 05/27 Overview (05/27/2008): Resolved per Duplicate Protocol #2. documented as of this encounter (statuses as of 05/18/2024) Immunizations Name Administration Dates Next Due COVID-19 mRNA, LNP-s, No Pre serve, 2-Dose Series (Moderna) 07/28/2020,06/29/2020 COVID-19, mRNA, LNP-s, PF, B ooster, 100mcg/0.5mg (Moderna) 05/09/2021 Covid-19, Mrna, Lnp-s, Pf, B ivalent, 30 Mcg, IM, 12 yrs and above (Pfizer) 02/20/2022 Pneumococcal Conjugate Vacc, 13 Valent (Prevnar) 09/16/2014 Pneumococcal Polysaccharide PPV23 (Pneumovax) 07/20/2010 Seasonal Influenza Vac., MDV , IM, 0.5 mL (Fluzone) 03/18/2014,03/16/2013,01/23/2012,02/02,01/18/2010,01/17/2009,04/03/2007 Seasonal Influenza Virus Vac cine, Unspecified Formulation 02/27/2021,02/02/2020,02/23/2019,02/01,02/09/2017,01/13/2016,02/09/2015 ,03/18/2014,03/16/2013,01/23/2012,10/2010,01/18/2010,01/17/2009, 7,02/17/2002,02/24/2001 Seasonal Influenza, High Dos e, Trivalent, PF, IM (Fluzone HD) 03/06/2024 Seasonal Influenza, PF, 6 M & above, IM , (FluLaval or Fluzone) 02/02/2020,02/01/2018,02/09/2017 Seasonal Influenza, Quadriva lent Hd (Fluzone Hd) 02/26/2023,01/26/2022,02/27/2021 Seasonal Influenza, Quadriva lent, No Preserve, IM 01/13/2016,02/09/2015 Seasonal Influenza, Trivalen t, Adjuvanted, 65+ YRS, PF, (Fluad) 02/23/2019 TDAP (age 10 and older)(Boostrix) 03/02/2021, Varicella Zoster Vaccine (Adult) 01/23/2012 Zoster Vaccine Recombinant (Shingrix) 01/26/2022 ,07/27/2021 documented as of this encounter Social History Tobacco Use Types Packs/Day Years Used Date Smoking Tobacco: Never Smokeless Tobacco: Never Alcohol Use Standard Drinks/Week Comments No 0 (1 standard drink = 0.6 oz pur e alcohol) PHQ-2 Answer Date Recorded PHQ Adult Total Score 0 03/06/2024 Hunger Vital Sign Answer Date Recorded Within the past 12 months, y ou worried that your food would run out before you got the money to buy more. Never true 09/05/19 24 Within the past 12 months, t he food you bought just didn't last and you didn't have money to get more. Never true 09/05/2023 Childcare Answer Date Recorded Do you feel overwhelmed with taking care of a child, family member or friend? No 09/05/2023 Does your family need help f inding childcare? (Household - for ages 0-17 years) Not on file 09/05/2023 Clothing Answer Date Recorded Have you been unable to get clothing when it was really needed? No 09/05/2023 Is your family able to get c lothes or diapers when needed? (Household - for ages 0-17 years) Not on file 09/05/2023 Personal Safety Answer Date Recorded Do you feel unsafe or have concerns for your saf ety? No 09/05/2023 Do you have concerns for you r family's safety? (Household - for ages 0-17 years) Not on file 09/05/2023 Utilities Answer Date Recorded Do you have trouble paying y our heating, water, or electric bill? No 09/05/2023 Is your family able to pay t he heat, water, or electric bill? (Household - for ages 0-17 years) Not on file 09/05/2023 Does your family have access to good internet? (Household - for ages 0-17 years) Not on file 09/05/2023 Employment Status Answer Date Recorded Are you unemployed or without regular income? No 09/05/2023 Does the household have a re gular source of income? (Household - for ages 0-17 years) Not on file 09/05/2023 Social Connections Answer Date Recorded How often do you feel lonely or isolated from th ose around you? Never 09/05/2023 Financial Resource Strain Answer Date R ecorded Do you have any trouble payi ng for your medications, or do you think you might in the future? No 09/05/2023 Does your family have troubl e paying for medicine? (Household - for ages 0-17 years) Not on file 09/05/2023 Transportation Needs Answer Date Record ed READ ONLY Do you have troubl e getting a ride to medical visits or work? Never True 09/05/2023 Does your family have a hard time getting a ride to doctors visits? (Household - for ages 0-17 years) Not on file 09/05/2023 Has lack of transportation k ept you from medical appointments, meetings, work, or from getting things needed for daily living? Check all that apply. (Adult - for ages 18 years and over) Not on file 09/05/2023 Do you (or your family) have trouble finding or paying for a ride (transportation)? (Household - for ages 0-17 years) Not on file 09/05/2023 Housing Stability Answer Date Recorded Do you currently live in a s helter or have no steady place to sleep at night? No 09/05/2023 READ ONLY Do you think you a re at risk of becoming homeless? No 09/05/2023 Does your family worry about paying for your home or becoming homeless? (Household - for ages 0-17 years) Not on file 0 09/05/2023 Are you homeless or worried that you might be in the future? (Adult - for ages 18 years and over) Not on file Are you (or your family) salma eless or worried that you might be in the future? (Household - for ages 0-17 years) Not on file Food Insecurity Answer Date Recorded Do you need food for this week? No 09/05/2023 Are you able to get enough f ood for your family? (Household - for ages 0-17 years) Not on file 09/05/2023 Does your family need food t his week? (Household - for ages 0-17 years) Not on file 09/05/2023 Do you always have enough fo od for your family? 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 on file Not on file Not on file documented as of this encounter Plan of Treatment Upcoming Encounters Date Type Department Care Team (Late st Contact Info) Description 05/20/2024 1:50 PM EST Office Visit Vascular Surgery, [facility] [address] [place] [id number] Juan Daniel Gruber MD [address] [facility] [place] [id number] 09/15/2024 4:00 PM EDT Office Visit [address] [phone] Carol Ledezma MD [address] [place] [address] [place] [id number] 04/09/2025 3:40 PM EST Office Visit [address] [place] [phone] Carol Ledezma MD [address] [place] [address] [place] [id number] Health Maintenance Due Date Last Done Comments Adult Wellness Visit 01/23/2006 COVID-19 Vaccine ( season) 2023 02/20/2022, 05/09/2021, 07/28/2020, Additional history exists GFR 09/03/2024 03/06/2024, 08/27, 02/26/2023, Additional history exists Albumin/Creatinine Ratio 03/03/20252 024, 08/21/2022, 07/27/2021, Additional history exists CKD HGB USE SMARTSET 47108 03/06/202503/06, 03/06/2024, 09/10/2023, Additional history exists CKD PHOS USE SMARTSET 90827 03/06/2025 1111/2023, 02/26/2023, 01/26/2022, Additional history exists Depression Screening 03/06/2025 03/06/2024 TSH 03/06/2025 03/06/2024, 08/27, 02/26/2023, Additional history exists DXA Scan 09/02/2030 09/03/2023, 10/2023, 10/21/2014, Additional history exists DTap/Tdap Vaccines (3 - Td or Tdap) 03/02/2031 03/02/2021, 09/08/2012, 09/16/1998 Pneumococcal Vaccine: 50+ Years Completed 09/16/2014, 07/20/2010 Zoster Vaccines Completed 01/26/2022, 06/29, 01/23/2012 Influenza Vaccine (FLU shot) Completed 11/2023, 02/26/2023, 01/26/2022, Additional history exists HPV (Gardasil) Vaccine Aged Out No lo nger eligible based on patient's age to complete this topic Hepatitis B Vaccine Aged Out No longe r eligible based on patient's age to complete this topic MENINGOCOCCAL (MENACTRA/MENVEO) Aged Out No longer eligible based on patient's age to complete this topic documented as of this encounter Medical Devices Not on filedocumented as of this encounter Advance Directives Documents on File Type Date Recorded Patient Shop Coordinator Expl anation Advance Directives and Living Will 07/10/2022 ADVANCE DIRECTIVE / LIVING WILL Power of Tumbler Tender 07/10/2022 POWER OF A TTORNEY - HEALTH CARE Healthcare Agents on File Name Relationship Healthcare Agent Relationshi p Communication Stephanie Perks Adult Child Health Care Repr esentative (appointed verbally by patient or by statute hierarchy) Care Teams Hanging Flags Decorator Relationship Specialty Start Date End Date Carol Ledezma MD [address] [place] [address] [place] [id number] PCP - General Family Medicine 06/09/14 documented as of this encounter
--- OUTSIDE RECORDS SUMMARY | 2024-08-18 00:53 | External Medical Summary ---
Author Name Unknown Address Unknown Organization [id number]:[facility] [place] [address] [place] [address] Laboratory Report Ordering Provider Test Date Status RICHIE REDDY 08/14/2024 09:58:56 Final Observation Date Value Abnormality Reference (Units ) Status BUN 08/14/2024 09:58:56 12 6-20 (mg/dL) Final Creatinine 08/14/2024 09:58:56 0.8 0.5-1.0 (mg/dL) Final Glomerular filtration rate/1.73 sq M.predicted [Volume Rate/Area] in Serum, Plasma or Blood by Creatinine-based formula (CKD-EPI) 08/14/2024 09:58:56 74 >=60 (mL/min) Final eGFR is calculated based on the CKD-EPI 2020 equation. Sodium 08/14/2024 09:58:56 142 135-146 (m mol/L) Final Potassium 08/14/2024 09:58:56 4.1 3.5-5.1 (m mol/L) Final Cl 08/14/2024 09:58:56 103 98-107 (mm ol/L) Final CO2 08/14/2024 09:58:56 29 22-32 (mmo l/L) Final Anion gap 08/14/2024 09:58:56 10 7-15 (mmol /L) Final Glucose 08/14/2024 09:58:56 132 Above high normal 70 -120 (mg/dL) Final Calcium 08/14/2024 09:58:56 9.3 8.4-10.2 ( mg/dL) Final Performing Location [facility] [place] [address] [place] [address]
--- OUTSIDE RECORDS SUMMARY | 2024-08-18 00:53 | External Medical Summary | Summary of Care ---
Author Name Unknown Organization [facility] Address [address] [place] [address] Phone [phone] Care Team Providers Care Aggregate Conveyor Operator Name Role Phone Carol Ledezma MD Primary Care Provide r Reason for Visit * Reason Comments Outpatient Testing Encounter Details Date Type Department Care Team (Late st Contact Info) Description 08/14/2024 9:50 AM EDT Laboratory Laboratory [address] [place] [phone] [facility] [address] [place] [address] Toe infection Allergies Active Allergy Reactions Criticality Noted Date Comments No Known Drug Allergy 10/27/2002 documented as of this encounter (statuses as of 08/14/2024) Medications Multiple Vitamins-Mineral s (DAILY MULTIVITAMIN) CAPS [...] other meds). 30 Tablet 11 4 Active Pantoprazole Sodium 40 MG Oral Tablet Delayed Release (Protonix)Indica tions:Gastroesop hageal reflux disease without esophagitis TAKE ONE TABLET BY MOUTH IN THE MORNING 90 Tablet 1 4 Active Atenolol 50 MG Oral Tablet (Tenormin)Indica tions:HTN, goal below 140/90 Take 0.5 Tablets by mouth in the morning. 45 Tablet 3 5 Active Atorvastatin Calcium 40 MG Oral Tablet (Lipitor)Indicat ions:Dyslipidemi a, goal LDL below 130 TAKE ONE TABLET BY MOUTH EVERY DAY 90 Tablet 2 5 Active Doxycycline Hyclate 100 MG Oral CapsuleIndicatio ns:Toe infection Take 1 Capsule by mouth in the morning and 1 Capsule before bedtime. Do all this for 10 days. 20 Capsule 5 08/22/19 25 Active documented as of this encounter (statuses as of 08/14/2024) Active Problems Problem Noted Date Diagnosed Date [...] as of this encounter (statuses as of 08/14/2024) Resolved Problems Problem Noted Date Diagnosed Date [...] as of this encounter (statuses as of 08/14/2024) Immunizations Name Administration Dates Next Due COVID-19 mRNA, LNP-s, No Pre serve, 2-Dose Series (Moderna) 07/28/2020,06/29/2020 COVID-19, mRNA, LNP-s, PF, B ooster, 100mcg/0.5mg (Moderna) 05/09/2021 Covid-19, Mrna, Lnp-s, Pf, B ivalent, 30 Mcg, IM, 12 yrs and above (ResponseTap (formerly AdInsight)) 02/20/2022 Pneumococcal Conjugate Vacc, 13 Valent (Prevnar) [...] 10 and older)(Boostrix) 03/02/2021, Varicella Zoster Vaccine Clemente lt (Zostavax) 01/23/2012 Zoster Vaccine Recombinant (Shingrix) 01/26/2022 ,07/27/2021 [...] ages 0-17 years) Not on file 09/05/2023 Food Insecurity Answer Date Recorded Within the past 12 months, y ou worried that your food would run out before you got the money to buy more. Never true 09/05/19 24 Within the past 12 months, t he food you bought just didn't last and you didn't have money to get more. Never true 09/05/2023 Do you need food for this week? No 09/05/2023 Comments No Sex and Gender Information [...] Care Team (Late st Contact Info) Description 08/17/2024 2:30 PM EDT Imaging Radiology [address] [place] [address] 09/15/2024 4:00 PM EDT Office Visit Family Medicine [address] [place] [phone] Carol Ledezma MD [address] [place] [address] [place] [phone] 04/09/2025 3:40 PM EST Office Visit [address] [place] [phone] Carol Ledezma MD [address] [place] [address] [place] [phone] Pending Results Name Type Priority Associated Diagnoses Date /Time CBC WITH WBC DIFFERENTIAL AND ANEMIA REFLEX WORKUP Lab Routine Toe infection 08/14/2024 9:58 AM EDT BASIC METABOLIC PANEL Lab Routine Toe infection 08/14/2024 9:58 AM EDT ANEMIA CBC Lab Routine Toe infection 08/14/2024 9:58 AM EDT DIFFERENTIAL, AUTOMATED Lab Routine Toe infection 08/14/2024 9:58 AM EDT ANEMIA REFLEX CHEMISTRY HOLD Lab Routine Toe infection 08/14/2024 9:58 AM EDT Health Maintenance Due Date Last Done Comments Adult Wellness Visit 01/23/2006 COVID-19 Vaccine ( season) 2023 02/20/2022, 05/09/2021, 07/28/2020, Additional history exists GFR 09/03/2024 03/06/2024, 08/27, 02/26/2023, Additional history exists Albumin/Creatinine Ratio 03/03/2025 024, 08/21/2022, 07/27/2021, Additional history exists CKD HGB USE SMARTSET 14873 03/06/202503/06, 03/06/2024, 09/10/2023, Additional history exists CKD PHOS USE SMARTSET 95993 03/06/2025 110 11/2023, 02/26/2023, 01/26/2022, Additional history exists Depression Screening 03/06/2025 03/06/2024 TSH 03/06/2025 03/06/2024, 08/27, 02/26/2023, Additional history exists DXA Scan 09/02/2030 09/03/2023, 050 10/2023, 10/21/2014, Additional history exists DTap/Tdap Vaccines [...] on patient's age to complete this topic Meningitis B Vaccine (Bexsero/Trumemba) Aged Out No longer eligible based on patient's age to complete this topic documented as of this encounter Medical Devices Not on filedocumented as of this encounter Visit Diagnoses Diagnosis Toe infection Unspecified local infection of skin and subcutaneous tissue documented in this encounter Advance Directives Documents on File Type Date Recorded Patient Rail Car Operator Expl anation Advance Directives and Living Will 07/10/2022 ADVANCE DIRECTIVE / LIVING WILL Power of Mobile Application Development Lead 07/10/2022 POWER OF A TTORNEY - HEALTH CARE Healthcare Agents on File Name Relationship Healthcare Agent Relationshi p Communication Stephanie Perks Adult Child Health Care Repr esentative (appointed verbally by patient or by statute hierarchy) Care Teams Aggregate Conveyor Operator Relationship Specialty Start Date End Date Carol Ledezma MD [address] [place] [address] [place] [phone] PCP - General Family Medicine 06/09/14 documented as of this encounter
--- OUTSIDE RECORDS SUMMARY | 2024-08-18 00:53 | External Medical Summary | Summary of Care ---
Author Name Unknown Organization [facility] Address [address] [place] [address] Phone [phone] Care Team Providers Care Manager Distribution Name Role Phone Carol Ledezma MD Primary Care Provide r Reason for Visit * Reason Onset Date Comments TRIAGE 03/23/2024 Encounter Details Date Type Department Care Team (Late st Contact Info) Description 03/23/2024 Telephone Vascular Surg [facility] [address] [place] [address] Juan Daniel Gruber MD [address] [place] [address] TRIAGE Allergies Active Allergy Reactions Criticality Noted Date Comments No Known Drug Allergy 10/27/2002 documented as of this encounter (statuses as of 03/23/2024) Medications Multiple Vitamins-Mineral s (DAILY MULTIVITAMIN) CAPS [...] in the morning. Takes for allergies. Active Pantoprazole Sodium 40 MG Oral Tablet Delayed Release (Protonix)Indica tions:Gastroesop hageal reflux disease without esophagitis Take 1 Tablet by mouth in the morning. 90 Tablet 3 3 Active Lisinopril 20 MG Oral Tablet (Prinivil)Indica [...] by mouth in the morning. 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] - Primary 03/13/24 CT abd/pelv with IV * Telephone Encounter - Ashly Lobo LPN - 03/23/2024 8:50 AM EST New pt - 05/20 Yasmani documented in this encounter Plan of Treatment Upcoming Encounters Date Type Department Care Team (Late st Contact Info) Description 03/31/2024 12:00 PM EST Imaging Radiology [facility] [address] [place] [address] 05/20/2024 1:50 PM EST Office Visit Vascular Surgery, [address] [place] [address] Juan Daniel Gruber MD [address] [place] [address] 09/15/2024 4:00 PM EDT Office Visit Family Medicine [address] [place] [phone] Carol Ledezma MD [address] [place] [address] [place] [phone] 04/09/2025 3:40 PM EST Office Visit Family Medicine [address] [place] [phone] Carol Ledezma MD [address] [place] [address] [place] [phone] Health Maintenance Due Date Last Done Comments Adult Wellness Visit 01/23/2006 COVID-19 Vaccine ( season) 2023 02/20/2022, 05/09/2021, 07/28/2020, Additional history exists GFR 09/03/2024 03/06/2024, 08/27, 02/26/2023, Additional history exists Albumin/Creatinine Ratio 03/03/2025 024, 08/21/2022, 07/27/2021, Additional history exists CKD HGB USE SMARTSET 20429 03/06/202503/06, 03/06/2024, 09/10/2023, Additional history exists CKD PHOS USE SMARTSET 61603 03/06/2025 110 11/2023, 02/26/2023, 01/26/2022, Additional history exists Depression Screening 03/06/2025 03/06/2024 TSH 03/06/2025 03/06/2024, 08/27, 02/26/2023, Additional history exists DXA Scan 09/02/2030 09/03/2023, 050 10/2023, 10/21/2014, Additional history exists DTap/Tdap Vaccines (3 - Td or Tdap) 03/02/2031 03/02/2021, 09/08/2012, 09/16/1998 Pneumococcal Vaccine: 65+ Years Completed 09/16/2014, 07/20/2010 Zoster Vaccines Completed [...] Documents on File Type Date Recorded Patient Safekeeping Clerk Expl anation Advance Directives and Living Will 07/10/2022 ADVANCE DIRECTIVE / LIVING WILL Power of Bone Cooking Operator 07/10/2022 POWER OF A TTORNEY - HEALTH CARE Healthcare Agents on File Name Relationship Healthcare Agent Relationshi p Communication Stephanie Perks Adult Child Health Care Repr esentative (appointed verbally by patient or by statute hierarchy) Care Teams Manager Distribution Relationship Specialty Start Date End Date Carol Ledezma MD [address] [place] [address] [place] [phone] PCP - General Family Medicine 06/09/14 documented as of this encounter
--- OUTSIDE RECORDS SUMMARY | 2024-08-18 00:53 | External Medical Summary | Summary of Care ---
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 without rupture (HCC) Carol Ledezma MD [address] [place] [address] [place] [id number] Phone: tel: fax: Referral ID Status Reason Start Date Expiration Date Visits Requested Visits Authorized [id number] Authorized Specialty Services Required [id number] Encounter Details Date Type Department Care Team (Late st Contact Info) Description 05/20/2024 1:50 PM EST Office Visit Vascular Surgery, [address] [place] [address] Juan Daniel Gruber MD [address] [place] [address] Celiac artery stenosis (HCC)* Allergies Active Allergy Reactions Criticality Noted Date Comments No Known Drug Allergy 10/27/2002 documented as of this encounter (statuses as of 05/20/2024) Medications Multiple Vitamins-Mineral s (DAILY MULTIVITAMIN) CAPS [...] EVERY DAY 90 Tablet 3 4 Active Additional Information Patient not taking.Reported on 05/20/2024 Alendronate Sodium 70 MG Oral Tablet (Fosamax) [...] 0.5 Tablets by mouth in the morning. 4 Active Pantoprazole Sodium 40 MG Oral Tablet Delayed Release (Protonix)Indica tions:Gastroesop hageal reflux disease without esophagitis TAKE ONE TABLET BY MOUTH IN THE MORNING 90 Tablet 1 4 Active documented as of this encounter (statuses as of 05/20/2024) Active Problems Problem Noted Date Diagnosed Date [...] as of this encounter (statuses as of 05/20/2024) Resolved Problems Problem Noted Date Diagnosed Date [...] as of this encounter (statuses as of 05/20/2024) Immunizations Name Administration Dates Next Due COVID-19 [...] Date Smoking Tobacco: Never Smokeless Tobacco: Never Tobacco Cessation:Counseling Given: No Alcohol Use Standard Drinks/Week Comments No 0 [...] on file documented as of this encounter Last Filed Vital Signs Vital Sign Reading Time Taken Comments Blood Pressure 128/76 05/20/2024 2:33 PM EST Pulse 78 05/20/2024 2:30 PM EST Temperature - - Respiratory Rate - - Oxygen Saturation - - Inhaled Oxygen Concentration - - Weight 64.4 kg (141 lb 14.4 oz) 05/20/2024 2:30 PM EST Height 165.1 cm (5' 5") 05/20/2024 2:30 PM EST Body Mass Index 23.61 05/20/2024 2:30 PM EST documented in this encounter Progress Notes * Leonel Graf PA-C - 05/20/2024 1:50 PM EST Date of Service: 05/20/2024 2:48 PM Nano Will is a 84 year old female. Patient being seen in consultation at the request of Carol Ledezma MD Chief Complaint: Celiac stenosis, new pt Presents with her daughter, Gabriela (an RN) HPI: Never-smoker with H/O Ascending Aortic Aneurysm (4.4 cm [address]), HTN, HLD, B/L renalcysts, DDD of lumbar spine, and OA of hip (s/p right DENNISE) who underwent CTA abd for abdominal bloating, early satiety, 30 pound weight loss CTA had incidental finding of ostial stenosis of celiac artery. SMA & MEEK both patent MESENTERIC ARTERIAL DISEASE: Patient denies post-prandial abdominal pain. Patient denies fear of food. But, she only eats 2 meals per day due to always feeling full Patient reports weight loss of 30 lbs over 1 yr Patient denies chronic diarrhea, but does alternate BTW diarrhea and constipation She has not seen a GI specialist FAMILY HISTORY: No family history of aortic aneurysms. Current Outpatient Medications Medication Sig Dispense Refill Multiple Vitamins-Minerals (DAILY MULTIVITAMIN) CAPS Take 1 Cap by mouth daily. 100 Cap 0 fish oil concentrate (OMEGA-3) 1000 MG CAPS Take 1 Cap by mouth 2 times a day. 60 Cap 0 Aspirin 81 MG Tablet Take 1 Tablet by mouth in the morning. Delayed release. Calcium Carbonate-Vitamin D 600-400 MG-UNIT Oral Tablet Take 1 Tablet by mouth every other day. 30 Tab 0 Cyanocobalamin 100 MCG Oral Tablet Take 1 Tablet by mouth in the morning. Acetaminophen 500 MG Oral Tablet (Tylenol) Take 2 Tablets by mouth every 8 hours as needed for Pain, Moderate. diphenhydrAMINE HCl 50 MG Oral Tablet Take 1 Tablet by mouth in the morning. Takes for allergies. Alendronate Sodium 70 MG Oral Tablet (Fosamax) Take 1 Tablet by mouth once a week. with 8 oz. water30 minutes before first meal of the day. Remain upright for 30 min after taking tablet 15 Tablet 3 Levothyroxine Sodium 88 MCG Oral Tablet (Levoxyl) Take 1 Tablet by mouth in the morning. (at least 30 min prior to breakfast or other meds). 30 Tablet 11 Atorvastatin Calcium 40 MG Oral Tablet (Lipitor) TAKE ONE TABLET BY MOUTH EVERY DAY 90 Tablet 1 Atenolol 50 MG Oral Tablet (Tenormin) Take 0.5 Tablets by mouth in the morning. Pantoprazole Sodium 40 MG Oral Tablet Delayed Release (Protonix) TAKE ONE TABLET BY MOUTH IN THE MORNING 90 Tablet 1 Lisinopril 20 MG Oral Tablet (Prinivil) TAKE ONE TABLET BY MOUTH EVERY DAY (Patient not taking: Reported on 05/20/2024) 90 Tablet 3 No current facility-administered medications for this visit. Review of patient's allergies indicates: Allergen Reactions No Known Drug Allergy Patient Active Problem List Diagnosis Cervicalgia Hypothyroidism HTN, GOAL BELOW 140/90 Dyslipidemia, goal LDL below 130 Hip joint replacement status Gastroesophageal reflux disease without esophagitis Hypertensive kidney disease with stage 3a chronic kidney disease Anemia Celiac artery stenosis (HCC) Aneurysm of ascending aorta without rupture (HCC) Past Medical History: Diagnosis Date Cervicalgia Dyslipidemia, goal to be determined HTN, goal below 140/90 Hypothyroidism Menopause Mucous polyp of cervix Past Surgical History: Procedure Laterality Date COLONOSCOPY W/ BIOPSY (RECTUM) 02/22/2011 IH, Diverticulosis,await bx COLONOSCOPY, DIAGNOSTIC (RECTUM) 3-4 years ago neg CXR 2 VIEWS AP/PA & LATERAL 05/02/2015 mild atelectasis, [facility] EGD, FLEXIBLE, DIAGNOSTIC N/A 07/02/2022 Z-LINE 37CM, FEW VENOUS IN MIDDLE & LOWER 3RD, MILD ANTRAL GASTRITIS / NO SPECIMENS COLLECTED / EKG 05/02/2015 NSR, [facility] LIGATE/CUT OVIDUCT(S) 20 yo Tubal Ligation RI REVJ TOT HIP ARTHRP FEM ONLY W/WO ALGRFT Right 06/26/2022 Dr. Hancock REMOVE IMPACTED EAR WAX W/ INSTRUMENT, ONE EAR 01/22/2006 TOTAL HIP REPLACEMENT & PROSTHESIS 06/01/2015 right DENNISE, Dr. Hancock, [facility] Family History Problem Relation Name Age of Onset Cancer Mother pancreas at 57 Heart Disorder Father heart ëxploded" at age 52 Social History Socioeconomic History Marital status: Spouse name: Not on file Number of children: Not on file Years of education: Not on file Highest education level: Not on file Occupational History Occupation: housewife Tobacco Use Smoking status: Never Smokeless tobacco: Never Vaping Use Vaping status: Never Used Substance and Sexual Activity Alcohol use: No Drug use: No Sexual activity: Yes Partners: Male Other Topics Concern Not on file Social History Narrative Not on file Social Needs Financial Resource Strain: Low Risk (09/05/2023) Financial Resource Strain Do you have any trouble paying for your medications, or do you think you might in the future? (Adult - for ages 18 years and over): No Does your family have trouble paying for medicine? (Household - for ages 0-17 years): Not on file Food Insecurity: No Food Insecurity (09/05/2023) Food Insecurity Do you need food for this week? (Adult - for ages 18 years and over): No Are you able to get enough food for your family? (Household - for ages 0-17 years): Not on file Does your family need food this week? (Household - for ages 0-17 years): Not on file Do you always have enough food for your family? (Household - for ages 0-17 years): Not on file Transportation Needs: No Transportation Needs (09/05/2023) Transportation Needs Do you have trouble getting a ride to medical visits or work? (Adult - for ages 18 years and over):Never True Does your family have a hard time getting a ride to doctors’ visits? (Household - for ages 0-17 years): Not on file Has lack of transportation kept you from medical appointments, meetings, work, or from getting things needed for daily living? Check all that apply. (Adult - for ages 18 years and over): Not on file Do you (or your family) have trouble finding or paying for a ride (transportation)? (Household - for ages 0-17 years): Not on file Social Connections: Socially Integrated (09/05/2023) Social Connections How often do you feel lonely or isolated from those around you? (Adult - for ages 18 years and over): Never Housing Stability: Low Risk (09/05/2023) Housing Stability Do you currently live in a mcc or have no steady place to sleep at night? (Adult - for ages 18 years and over): No Do you think you are at risk of becoming homeless? (Adult - for ages 18 years and over): No Does your family worry about paying for your home or becoming homeless? (Household - for ages 0-17 years): Not on file Are you homeless or worried that you might be in the future? (Adult - for ages 18 years and over): Not on file Are you (or your family) homeless or worried that you might be in the future? (Household - for ages0-17 years): Not on file COMPLETE REVIEW OF SYSTEMS: Cardiovascular: Negative for chest pain, shortness of breath, palpitations, angina or TX Neurological: Negative for stroke, TIA, amaurosis fugax All other systems negative except for those noted above and in the history of present illness (HPI). VITAL SIGNS: BP 128/76 (BP Site: Left Arm, BP Position: Sitting, BP Cuff Size: Regular) | Pulse 78 | Ht 1.651 m (5' 5") | Wt 64.4 kg (141 lb 14.4 oz) | BMI 23.61 kg/m² | BSA 1.72 m² GENERAL MULTI-SYSTEM PHYSICAL EXAM:GENERAL: Normal grooming habits, no acute distress, and appears stated age. NECK: No masses and Normal Thyroid. RESPIRATORY: respiratory effort normal and breath sounds normal. CARDIOVASCULAR: no heart murmurs, no edema, and no varicosities. GASTROINTESTINAL: no tenderness, protuberant, and abdominal aorta not palpable. SKIN: no ulcers, no rash, no induration, capillary refill normal, and no dependent rubor. PSYCHIATRIC: orientation to time, place and person normal and recent and remote memory normal. EYES: conjunctivae normal, eye lids normal, pupils normal, and irises normal. NEUROLOGIC: Cranial nerves intact, Motor function intact, and Sensory exam intact PULSE SCALE: Carotid Right:----Bruit: No Left:----Bruit: No Radial Right: 3 Left: 3 Dorsalis Pedis Right: 3 Left: 3 PULSE SCALE: 4=Aneurysmal; 3=Normal; 2=Diminished; 1=Barely Palpable; 0=Absent DIAGNOSTIC STUDIES: 03/13/24 CT Abd/Pelvis: Ostial stenosis of celiac artery w/ post-stenotic dilatation, 1.4 cm. Patent SMA and MEEK. Scattered calcified plaque of abd aorta w/out AAA. 03/31/24 CT Chest: 4.4 cm ascending thoracic aorta, 3.0 cm descending thoracic aorta The above CT scan images were directly visualized and independently interpreted by me on 05/20/2024 with results as above. LABS: Lab Results Component Value Date/Time CREATININE - [facility] 1.3 (H) 03/06/2024 02:22 PM CREATININE - [facility] 0.9 09/10/2023 02:00 PM CREATININE - [facility] 1.0 02/26/2023 02:42 PM CREATININE - [facility] 0.89 05/29/2022 12:00 AM CREATININE - [facility] 1.0 03/22/2020 09:26 AM CREATININE - [facility] 1.1 (H) 02/18/2019 09:00 AM CREATININE - [facility] 1.1 (H) 07/28/2018 08:30 AM CREATININE, RANDOM URINE - [facility] 129 03/03/2024 12:25 PM CREATININE, RANDOM URINE - [facility] 221 08/21/2022 11:07 AM CREATININE, RANDOM URINE - [facility] 131 07/27/2021 11:09 AM CREATININE, RANDOM URINE - [facility] 222 05/28/2006 09:12 AM Lab Results Component Value Date/Time LDL CHOLESTEROL (CALCULATED) - [facility] 55 03/06/2024 02:22 PM LDL CHOLESTEROL (CALCULATED) - [facility] 82 03/22/2020 09:26 AM LDL CHOLESTEROL (DIRECT MEASURE) - [facility] 66 07/06/2022 02:22 PM LDL CHOLESTEROL (DIRECT MEASURE) - [facility] NOT APPLICABLE 03/22/2020 09:26 AM No results found for: "HEMOGLOBIN A1C - [facility]" The above clinical labs were reviewed by me on 05/20/2024. IMPRESSIONS: Asymptomatic non-obstructive ostial stenosis of celiac artery. 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 We recommended to patient that she see a GI specialist for further W/U Asymptomatic 4.4 cm ascending aortic aneurysm. Size of aneurysm under threshold of elective repair,5.0 cm. Patient should have consultation with Cardiology, for surveillance to KELLY, assure proper BPcontrol Non-smoker HTN HLD B/L renal cysts DDD of lumbar spine OA of hip (s/p right DENNISE) PLAN: The patient was counseled regarding the pathophysiology and natural history of mesenteric vascular disease, as well as the interventional and noninterventional therapeutic options. Patient lacks signs/symptoms of mesenteric ischemia. In addition, both SMA and MEEK are patent No current indication for surgical intervention Continue ASA 81 mg for platelet inhibition/atherosclerosis Continue Lipitor 40 mg for dyslipidemia/hyperlipidemia & pleiotropic benefits of statins Patient requested PRN follow up. We would be more than happy to see patient again if she should develop signs/symptoms of mesenteric ischemia (which she does not have @ this time). The patient was seen and examined with Juan Daniel Gruber MD. Leonel Graf PA-C Section of Vascular and Endovascular Surgery [place], [place] [id number] [phone] I have reviewed the advanced practitioner's documentation on the date of service referenced in note, and I agree with, and take responsibility for the plan of care. 84 year old female with decreased appetite/early satiety Has some CA stenosis with poststenotic dilatation, widely patent SMA/MEEK Symptoms not typical for chronic mesenteric ischemia which is also unlikely given single vessel celiac disease On appropriate medical management No need for surveillance imaging as intervention would be guided for symptoms, follow up PRN Juan Daniel Gruber MD Section of Vascular [place] [address] [phone] documented in this encounter Nursing Notes * Ramya Leiva LPN - 05/20/2024 2:35 PM EST Reviewed the option of transferring scripts to [facility] pharmacy with patient and / or family. Patient was instructed to not get up on the exam table/exam chair until directed and assisted by their provider; patient is to remain seated in the chair/ wheelchair/ exam table/ exam chair for fall prevention and safety reasons. Patient is aware to have assistance to step down off exam table/exam chair with personnel. Patient voiced full comprehension of instructions. Ramya Leiva LPN documented in this encounter Plan of Treatment Upcoming Encounters Date Type Department Care Team (Late st Contact Info) Description 09/15/2024 4:00 PM EDT Office Visit Family Medicine [address] [place] [phone] Carol Ledezma MD [address] [place] [address] [place] [phone] 04/09/2025 3:40 PM EST Office Visit Family Medicine [address] [place] [phone] Carol Ledezma MD [address] [place] [address] [place] [id number] Health Maintenance Due Date Last Done Comments Adult Wellness Visit 01/23/2006 COVID-19 Vaccine ( season) 2023 02/20/2022, 05/09/2021, 07/28/2020, Additional history exists GFR 09/03/2024 03/06/2024, 08/27, 02/26/2023, Additional history exists Albumin/Creatinine Ratio 03/03/2025 024, 08/21/2022, 07/27/2021, Additional history exists CKD HGB USE SMARTSET 42944 03/06/202503/06, 03/06/2024, 09/10/2023, Additional history exists CKD PHOS USE SMARTSET 22666 03/06/202511/2023, 02/26/2023, 01/26/2022, Additional history exists Depression Screening 03/06/2025 03/06/2024 TSH 03/06/2025 03/06/2024, 08/27, 02/26/2023, Additional history exists DXA Scan 09/02/2030 09/03/2023, 0 10/2023, 10/21/2014, Additional history exists DTap/Tdap Vaccines [...] as of this encounter Visit Diagnoses Diagnosis 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 documented in this encounter Advance Directives Documents on File Type Date Recorded Patient Shank Turner Expl anation Advance Directives and Living Will 07/10/2022 ADVANCE DIRECTIVE / LIVING WILL Power of Piping Designer 07/10/2022 POWER OF A TTORNEY - HEALTH CARE Healthcare Agents on File Name Relationship Healthcare Agent Relationshi p Communication Stephanie Perks Adult Child Health Care Repr esentative (appointed verbally by patient or by statute hierarchy) Care Teams Lacer And Tier Relationship Specialty Start Date End Date Carol Ledezma MD [address] [place] [address] [place] [phone] PCP - General Family Medicine 06/09/14 documented as of this encounter
--- OUTSIDE RECORDS SUMMARY | 2024-08-18 00:53 | External Medical Summary | Summary of Care ---
Author Name Unknown Organization [facility] Address [address] [place] [address] Phone [phone] Care Team Providers Care Rehab Aid Name Role Phone Carol Ledezma MD Primary Care Provide r Reason for Referral * Precert (Within 10 days (routine)) - Authorized Specialty Diagnoses / Procedures Referred By Contac t Referred To Contact Radiology Diagnoses Toe infection Procedures MRI FOOT LEFT WO CONTRAST Jayesh Mack CRNP [address] [place] [address] [place] [phone] Phone: tel: fax: Referral ID Status Reason Start Date Expiration Date V isits Requested Visits Authorized [id number] Authorized 08/20/[phone] Reason for Visit * Reason Onset Date Comments Test Results 08/13/2024 Encounter Details Date Type Department Care Team ([facility] st Contact Info) Description 08/13/2024 Telephone Family Medicine [address] [place] [phone] Jayesh Mack CRNP [address] [place] [address] [place] [id number] Test Results Allergies Active Allergy Reactions Criticality Noted Date Comments No Known Drug Allergy 10/27/2002 documented as of this encounter (statuses as of 08/13/2024) Medications Multiple Vitamins-Mineral s (DAILY MULTIVITAMIN) CAPS [...] as of this encounter (statuses as of 08/13/2024) Active Problems Problem Noted Date Diagnosed Date [...] as of this encounter (statuses as of 08/13/2024) Resolved Problems Problem Noted Date Diagnosed Date [...] as of this encounter (statuses as of 08/13/2024) Immunizations Name Administration Dates Next Due COVID-19 [...] No 09/05/2023 Does the household have a [facility]? (Household - for ages [...] encounter Miscellaneous Notes * Telephone Encounter - Jayesh Mack CRNP - 08/13/2024 10:58 AM EDT Spoke with Stephanie Garcias patients daughter. Agreeable to labs/MRI. Reports today toe is looking better. Has an appointment with [facility] next week. Discussed worsening signs/symptoms over the weekend then ER. documented in this encounter Plan of Treatment Upcoming Encounters Date Type Department Care Team (Late st Contact Info) Description 08/17/2024 2:30 PM EDT Imaging Radiology [address] [place] [address] 09/15/2024 4:00 PM EDT Office Visit [address] [place] [phone] Carol Ledezma MD [address] [place] [address] [place] [phone] 04/09/2025 3:40 PM EST Office Visit [address] [place] [phone] Carol eLdezma MD [address] [place] [address] [place] [id number] Scheduled Orders Name Type Priority Associated Diagnoses Orde r Schedule CBC WITH WBC DIFFERENTIAL AND ANEMIA REFLEX WORKUP Lab Routine Toe infection Expected: 08/13/2024 (Approximate), Expires: 08/13/2025 BASIC METABOLIC PANEL Lab Routine Toe infection Expected: 08/13/2024 (Approximate), Expires: 08/13/2025 MRI FOOT LEFT WO CONTRAST Medical Imaging Routine Toe infection Expected: 08/20/2024, Expires: 09/12/2025 Health Maintenance Due Date Last Done Comments Adult Wellness Visit 01/23/2006 COVID-19 Vaccine ( season) 2023 02/20/2022, 05/09/2021, 07/28/2020, Additional history exists GFR 09/03/2024 03/06/2024, 08/27, 02/26/2023, Additional history exists Albumin/Creatinine Ratio 03/03/20252 024, 08/21/2022, 07/27/2021, Additional history exists CKD HGB USE SMARTSET 49428 03/06/202503/06, 03/06/2024, 09/10/2023, Additional history exists CKD PHOS USE SMARTSET 30079 03/06/20250 11/2023, 02/26/2023, 01/26/2022, Additional history exists Depression Screening 03/06/2025 03/06/2024 TSH 03/06/2025 03/06/2024, 05/1 07/2023, 02/26/2023, Additional history exists DXA Scan 09/02/2030 [...] of this encounter Visit Diagnoses Diagnosis Toe infection- Primary Unspecified local infection of skin and subcutaneous tissue documented in this encounter Advance Directives Documents on File Type Date Recorded Patient Linux Network Administrator Expl anation Advance Directives and Living Will 07/10/2022 ADVANCE DIRECTIVE / LIVING WILL Power of Terminal Press Operator 07/10/2022 POWER OF A TTORNEY - HEALTH CARE Healthcare Agents on File Name Relationship Healthcare Agent Relationshi p Communication Stephanie Perks Adult Child Health Care Repr esentative (appointed verbally by patient or by statute hierarchy) Care Teams Rehab Aid Relationship Specialty Start Date End Date Carol Ledezma MD [address] [place] [address] [place] [phone] PCP - General Family Medicine 06/09/14 documented as of this encounter
--- OUTSIDE RECORDS SUMMARY | 2024-08-18 00:53 | External Medical Summary ---
Author Name Unknown Address Unknown Organization [id number][place] [facility] [place] [address] [facility] [place] [address] Laboratory Report Ordering Provider Test Date Status RICHIE REDDY 08/14/2024 09:58:56 Final Observation Date Value Abnormality Reference (Units ) Status WBC, Total 08/14/2024 09:58:56 7.14 4.00-10.8 0 (K/uL) Final RBC 08/14/2024 09:58:56 4.07 3.85-5.15 (M/uL) Final Hemoglobin 08/14/2024 09:58:56 12.7 12.0-15.3 (g/dL) Final Anemia reflex testing trigge rs on a HGB < 12.0 for Females and HGB < 13.0 for Males in accordance with the WHO Anemia Guidelines
Anemia reflex testing triggers on a HGB < 12.0 for Females and HGB < 13.0 for Males in accordance with the WHO Anemia Guidelines HCT 08/14/2024 09:58:56 40.8 36.0-45.2 (%) Final MCV 08/14/2024 09:58:56 100.2 81.5-97.5 (fL) Final MCH 08/14/2024 09:58:56 31.2 27.0-34.0 (pg) Final MCHC 08/14/2024 09:58:56 31.1 32.0-36.0 (g/dL) Final RDW 08/14/2024 09:58:56 14.6 11.5-15.5 (%) Final Platelets 08/14/2024 09:58:56 311 140-400 (K /uL) Final MPV 08/14/2024 09:58:56 9.8 6.6-11.1 ( fL) Final Nucleated erythrocytes/100 leukocytes [Ratio] in Blood by Automated count 08/14/2024 09:58:56 0 <=0 (/100 WBCs) Fi [facility] Performing Location [facility] - [address] [facility] [place] [address]
--- OUTSIDE RECORDS SUMMARY | 2024-08-18 00:53 | External Medical Summary | Summary of Care ---
Author Name Unknown Organization [facility] Address [address] [place] [address] Phone [phone] Care Team Providers Care Senior Relationship Manager Name Role Phone Shilpi Ledezma MD Primary Care Provide r Reason for Visit * Reason Comments eRx-Medication Refill Encounter Details Date Type Department Care Team (Late st Contact Info) Description 06/09/2024 Refill Family Medicine [address] [phone] Shilpi Ledezma MD [address] [place], [place] [address] [phone] Dyslipidemia, goal LDL below 130 Allergies Active Allergy Reactions Criticality Noted Date Comments No Known Drug Allergy 10/27/2002 documented as of this encounter (statuses as of 06/10/2024) Medications Multiple Vitamins-Minera ls (DAILY MULTIVITAMIN) CAPS Take 1 Cap by mouth daily. 100 Cap 0 06/09/19 16 Active fish oil concentrate (OMEGA-3) 1000 MG CAPS Take 1 Cap by mouth 2 times a day. 60 Cap 0 06/09/19 16 Active Aspirin 81 MG Tablet Take 1 Tablet by mouth in the morning. Delayed release. 06/28/19 23 Active Calcium Carbonate-Vitam in D 600-400 MG-UNIT Oral Tablet Take 1 Tablet by mouth every other day. 30 Tab 05/17/19 18 Active Cyanocobalamin 100 MCG Oral Tablet Take 1 Tablet by mouth in the morning. 07/03/19 23 Active Acetaminophen 500 MG Oral Tablet (Tylenol) Take 2 Tablets by mouth every 8 hours as needed for Pain, Moderate. 06/28/19 23 Active diphenhydrAMINE HCl 50 MG Oral Tablet Take 1 Tablet by mouth in the morning. Takes for allergies. Active Lisinopril 20 MG Oral Tablet (Prinivil)Indic ations:HTN, goal below 140/90 TAKE ONE TABLET BY MOUTH EVERY DAY 90 Tablet 3 07/30/19 24 Active Additional Information Patient not taking.Reported on 05/20/2024 Alendronate Sodium 70 MG Oral Tablet (Fosamax) Take 1 Tablet by mouth once a week. with 8 oz. water 30 minutes before first meal of the day. Remain upright for 30 min after taking tablet 15 Tablet 3 09/06/19 24 Active Levothyroxine Sodium 88 MCG Oral Tablet (Levoxyl)Indica tions:Hypothyro idism Take 1 Tablet by mouth in the morning. (at least 30 min prior to breakfast or other meds). 30 Tablet 11 09/12/19 24 Active Pantoprazole Sodium 40 MG Oral Tablet Delayed Release (Protonix)Indic ations:Gastroes ophageal reflux disease without esophagitis TAKE ONE TABLET BY MOUTH IN THE MORNING 90 Tablet 1 04/24/20 24 Active Atenolol 50 MG Oral Tablet (Tenormin)Indic ations:HTN, goal below 140/90 Take 0.5 Tablets by mouth in the morning. 45 Tablet 3 05/28/19 25 Active Atorvastatin Calcium 40 MG Oral Tablet (Lipitor)Indica tions:Dyslipide silvana, goal LDL below 130 TAKE ONE TABLET BY MOUTH EVERY DAY 90 Tablet 2 06/10/19 25 Active Atorvastatin Calcium 40 MG Oral Tablet (Lipitor)Indica tions:Dyslipide silvana, goal LDL below 130 TAKE ONE TABLET BY MOUTH EVERY DAY 90 Tablet 1 12/18/19 24 025 Discontinued documented as of this encounter (statuses as of 06/10/2024) Active Problems Problem Noted Date Diagnosed Date [...] as of this encounter (statuses as of 06/10/2024) Resolved Problems Problem Noted Date Diagnosed Date [...] as of this encounter (statuses as of 06/10/2024) Immunizations Name Administration Dates Next Due COVID-19 [...] encounter Miscellaneous Notes * Telephone Encounter - Vivian Angeles RPh - 06/10/2024 11:23 AM ESTSigned Prescriptions: Disp Refills Atorvastatin Calcium 40 MG Oral Tablet (Li*90 Tab*2 Sig: TAKE ONE TABLET BY MOUTH EVERY DAYAuthorizing Provider: SHILPI LEDEZMAOrdermarilee User: VIVIAN ANGELES documented in this encounter Plan of Treatment Upcoming Encounters Date Type Department Care Team (Late st Contact Info) Description 09/15/2024 4:00 PM EDT Office Visit Family Medicine [address] [phone] Shilpi Ledezma MD [address] [place] [address] [place] [phone] 04/09/2025 3:40 PM EST Office Visit Family Medicine [address] [place] [phone] Shilpi Ledezma MD [address] [place] [address] [place] [phone] Health Maintenance Due Date Last Done Comments Adult Wellness Visit 01/23/2006 COVID-19 Vaccine ( season) 2023 02/20/2022, 05/09/2021, 07/28/2020, Additional history exists GFR 09/03/2024 03/06/2024, 08/27, 02/26/2023, Additional history exists Albumin/Creatinine Ratio 03/03/2025 024, 08/21/2022, 07/27/2021, Additional history exists CKD HGB USE SMARTSET 13814 03/06/202503/06, 03/06/2024, 09/10/2023, Additional history exists CKD PHOS USE SMARTSET 59592 03/06/202511/2023, 02/26/2023, 01/26/2022, Additional history exists Depression [...] as of this encounter Visit Diagnoses Diagnosis Dyslipidemia, goal LDL below 130 Other and unspecified hyperlipidemia documented in this encounter Advance Directives Documents on File Type Date Recorded Patient Material Handling Technician Expl anation Advance Directives and Living Will 07/10/2022 ADVANCE DIRECTIVE / LIVING WILL Power of Mold Stripper 07/10/2022 POWER OF A TTORNEY - HEALTH CARE Healthcare Agents on File Name Relationship Healthcare Agent Relationshi p Communication Stephanie Perks Adult Child Health Care Repr esentative (appointed verbally by patient or by statute hierarchy) Care Teams Senior Relationship Manager Relationship Specialty Start Date End Date Shilpi Ledezma MD [address] [place] [address] [place] [phone] PCP - General Family Medicine 06/09/14 documented as of this encounter
--- OUTSIDE RECORDS SUMMARY | 2024-08-18 00:53 | External Medical Summary | Summary of Care ---
Author Name Unknown Organization [facility] Address [address] [place] [address] Phone [phone] Care Team Providers Care Home Maker Name Role Phone Shilpi Ledezma MD Primary Care Provide r Reason for Visit * Reason Comments eRx-Medication Refill Encounter Details Date Type Department Care Team (Late st Contact Info) Description 04/23/2024 Refill Family Medicine [address] [phone] Shilpi Ledezma MD [address] [place], [place] [address] [phone] Encounter for long-term (current) use of medications*; Gastroesophageal reflux disease without esophagitis Allergies Active Allergy Reactions Criticality Noted Date Comments No Known Drug Allergy 10/27/2002 documented as of this encounter (statuses as of 04/24/2024) Medications Multiple Vitamins-Minera ls (DAILY MULTIVITAMIN) CAPS [...] DAY 90 Tablet 3 07/30/19 24 Active Alendronate Sodium 70 MG Oral Tablet [...] meds). 30 Tablet 11 09/12/19 24 Active Atorvastatin Calcium 40 MG Oral Tablet (Lipitor)Indica tions:Dyslipide silvana, goal LDL below 130 TAKE ONE TABLET BY MOUTH EVERY DAY 90 Tablet 1 12/18/19 24 Active Atenolol 50 MG Oral Tablet (Tenormin)Indic ations:HTN, goal below 140/90 Take 1 Tablet by mouth in the morning. 03/06/20 24 Active Pantoprazole Sodium 40 MG Oral Tablet Delayed Release (Protonix)Indic ations:Gastroes ophageal reflux disease without esophagitis TAKE ONE TABLET BY MOUTH IN THE MORNING 90 Tablet 1 04/24/20 24 Active Pantoprazole Sodium 40 MG Oral Tablet Delayed Release (Protonix)Indic ations:Gastroes ophageal reflux disease without esophagitis Take 1 Tablet by mouth in the morning. 90 Tablet 3 04/17/20 23 024 Discontinued documented as of this encounter (statuses as of 04/24/2024) Active Problems Problem Noted Date Diagnosed Date [...] as of this encounter (statuses as of 04/24/2024) Resolved Problems Problem Noted Date Diagnosed Date [...] as of this encounter (statuses as of 04/24/2024) Immunizations Name Administration Dates Next Due COVID-19 mRNA, LNP-s, No Pre serve, 2-Dose Series (Moderna) 07/28/2020,06/29/2020 COVID-19, mRNA, LNP-s, PF, B ooster, 100mcg/0.5mg (Moderna) 05/09/2021 Covid-19, Mrna, Lnp-s, Pf, B ivalent, 30 Mcg, IM, 12 yrs and above (Silentium) 02/20/2022 Pneumococcal Conjugate Vacc, 13 Valent (Prevnar) [...] encounter Miscellaneous Notes * Telephone Encounter - Gasper Dao RPh - 04/24/2024 3:10 PM ESTSigned Prescriptions: Disp Refills Pantoprazole Sodium 40 MG Oral Tablet Aimee*90 Tab*1 Sig: TAKE ONE TABLET BY MOUTH IN THE MORNINGAuthorizing Provider: SHILPI LEDEZMA User: GASPER DAO * Telephone Encounter - Gasper Dao RPh - 04/24/2024 3:09 PM EST Per refill protocol patient needs magnesium lab on file within the past 2 years while using PPIs. Lab work ordered. Patient may obtain with next routine labs. Thanks, Gasper Dao, PharmD Clinical Pharmacist [facility] [phone] 04/24/2024 3:10 PM documented in this encounter Plan of Treatment Upcoming Encounters Date Type Department Care Team (Late st Contact Info) Description 05/20/2024 1:50 PM EST Office Visit Vascular Surgery, [facility] [address] [place] [address] Juan Daniel Gruber MD [address] [facility] [place] [phone] 09/15/2024 4:00 PM EDT Office Visit [address] [phone] Shilpi Ledezma MD [address] [place] [address] [place] [phone] 04/09/2025 3:40 PM EST Office Visit [address] [phone] Shilpi Ledezma MD [address] [place] [address] [place] [phone] Scheduled Orders Name Type Priority Associated Diagnoses Orde r Schedule MAGNESIUM Lab Routine Encounter for long-term (current) use of medications Expected: 04/24/2024 (Approximate), Expires: 04/24/2025 Health Maintenance Due Date Last Done Comments Adult Wellness Visit 01/23/2006 COVID-19 Vaccine ( season) 2023 02/20/2022, 05/09/2021, 07/28/2020, Additional history exists GFR 09/03/2024 03/06/2024, 08/27, 02/26/2023, Additional history exists Albumin/Creatinine Ratio 03/03/20252 024, 08/21/2022, 07/27/2021, Additional history exists CKD HGB USE SMARTSET 70583 03/06/202503/06, 03/06/2024, 09/10/2023, Additional history exists CKD PHOS USE SMARTSET 35269 03/06/2025 11/0 11/2023, 02/26/2023, 01/26/2022, Additional history exists Depression [...] as of this encounter Visit Diagnoses Diagnosis Encounter for long-term (current) use of medications- Primary Encounter for long-term (current) use of other medications Gastroesophageal reflux disease without esophagitis Esophageal reflux documented in this encounter Advance Directives Documents on File Type Date Recorded Patient Drafter Tool Design Expl anation Advance Directives and Living Will 07/10/2022 ADVANCE DIRECTIVE / LIVING WILL Power of Claims Adjuster 07/10/2022 POWER OF A TTORNEY - HEALTH CARE Healthcare Agents on File Name Relationship Healthcare Agent Relationshi p Communication Stephanie Perks Adult Child Health Care Repr esentative (appointed verbally by patient or by statute hierarchy) Care Teams Home Maker Relationship Specialty Start Date End Date Shilpi Ledezma MD [address] [place] [address] [place] [phone] PCP - General Family Medicine 06/09/14 documented as of this encounter
--- OUTSIDE RECORDS SUMMARY | 2024-08-18 00:53 | External Medical Summary ---
Author Name Unknown Address Unknown Organization K01:[facility] - [address] [facility] [address] Laboratory Report Ordering Provider Test Date Status RICHIE REDDY 08/14/2024 09:58:56 Final Observation Date Value Abnormality Reference (Units ) Status SYNC LEUKOCYTES IN BLOOD BY AUTOMATED COUNT 08/14/2024 09:58:56 7.14 4.00-10.80 (K/uL) Final Segs 08/14/2024 09:58:56 61.9 40.0-75.0 (%) Final Lymphs % 08/14/2024 09:58:56 25.2 18.0-42.0 (%) Final Monos 08/14/2024 09:58:56 9.4 1.0-11.0 (%) Final Eosinophils 08/14/2024 09:58:56 2.5 0.0-6.0 (%) Final Basos 08/14/2024 09:58:56 0.7 0.0-2.0 (%) Final Immature Granulocyte, Percent 08/14/2024 09:58:56 0.3 0.0-2.0 (%) Final Absolute Segs 08/14/2024 09:58:56 4.42 1.80-7.70 (K/uL) Final Lymphs, absolute 08/14/2024 09:58:56 1.80 1.00-4.80 (K/ul) Final Monos, Abs 08/14/2024 09:58:56 0.67 0.00-1.10 (K/uL) Final Eos, Abs 08/14/2024 09:58:56 0.18 0.00-0.70 (K/uL) Final Basos, Abs 08/14/2024 09:58:56 0.05 0.00-0.20 (K/uL) Final Immature Granulocytes, Number 08/14/2024 09:58:56 0.02 0.00-0.20 (K/uL) Final Performing Location [facility] [place] [address] [facility] [address]
--- OUTSIDE RECORDS SUMMARY | 2024-08-18 00:53 | External Medical Summary | Summary of Care ---
Author Name Unknown Organization [facility] Address [address] [place] [address] Phone [phone] Care Team Providers Care Lymphedema Therapist Name Role Phone Carol Ledezma MD Primary Care Provide r Encounter Details Date Type Department Care Team (Late st Contact Info) Description 03/24/2024 Orders Only PATIENT PORTAL DO NOT DELETE THIS DEPT USED BY [place] LARRY [id number] Allergies Active Allergy Reactions Criticality Noted Date Comments No Known Drug Allergy 10/27/2002 documented as of this encounter (statuses as of 03/24/2024) Medications Multiple Vitamins-Mineral s (DAILY MULTIVITAMIN) CAPS [...] as of this encounter (statuses as of 03/24/2024) Active Problems Problem Noted Date Diagnosed Date [...] as of this encounter (statuses as of 03/24/2024) Resolved Problems Problem Noted Date Diagnosed Date [...] as of this encounter (statuses as of 03/24/2024) Immunizations Name Administration Dates Next Due COVID-19 [...] Description 03/31/2024 12:00 PM EST Imaging Radiology [facility] [address] [facility] [place] [address] 05/20/2024 1:50 PM EST Office Visit Vascular Surgery, [address] [place] [address] Juan Daniel Gruber MD [address] [facility] [place] [address] 09/15/2024 4:00 PM EDT Office Visit [address] [phone] Carol Ledezma MD [address] [place] [address] [place] [phone] 04/09/2025 3:40 PM EST Office Visit [address] [phone] Carol Ledezma MD [address] [place] [address] [place] [phone] Health Maintenance Due Date Last Done Comments Adult Wellness Visit 01/23/2006 COVID-19 Vaccine ( season) 2023 02/20/2022, 05/09/2021, 07/28/2020, Additional history exists GFR 09/03/2024 03/06/2024, 08/27, 02/26/2023, Additional history exists Albumin/Creatinine Ratio 03/03/2025 024, 08/21/2022, 07/27/2021, Additional history exists CKD HGB USE SMARTSET 23674 03/06/202503/06, 03/06/2024, 09/10/2023, Additional history exists CKD PHOS USE SMARTSET 90630 03/06/2025 110 11/2023, 02/26/2023, 01/26/2022, Additional history [...] Documents on File Type Date Recorded Patient Sales Representative Expl anation Advance Directives and Living Will 07/10/2022 ADVANCE DIRECTIVE / LIVING WILL Power of Waste Treatment Operator 07/10/2022 POWER OF A TTORNEY - HEALTH CARE Healthcare Agents on File Name Relationship Healthcare Agent Relationshi p Communication Stephanie Perks Adult Child Health Care Repr esentative (appointed verbally by patient or by statute hierarchy) Care Teams Lymphedema Therapist Relationship Specialty Start Date End Date Carol Ledezma MD [address] [place] [address] [place] [phone] PCP - General Family Medicine 06/09/14 documented as of this encounter
--- OUTSIDE RECORDS SUMMARY | 2024-08-18 00:53 | External Medical Summary | Summary of Care ---
Author Name Unknown Organization [facility] Address [address] [place] [address] Phone [phone] Care Team Providers Care Burr Filer Name Role Phone Carol Ledezma MD Primary Care Provide r Reason for Visit * Reason Onset Date Comments Fax 08/12/2024 Encounter Details Date Type Department Care Team ([facility] st Contact Info) Description 08/12/2024 Telephone Family Medicine [address] [phone] Carol Ledezma MD [address] [place], [place] [address] [phone] Fax Allergies Active Allergy Reactions Criticality Noted Date Comments No Known Drug Allergy 10/27/2002 documented as of this encounter (statuses as of 08/12/2024) Medications Multiple Vitamins-Mineral s (DAILY MULTIVITAMIN) CAPS [...] as of this encounter (statuses as of 08/12/2024) Active Problems Problem Noted Date Diagnosed Date [...] as of this encounter (statuses as of 08/12/2024) Resolved Problems Problem Noted Date Diagnosed Date [...] as of this encounter (statuses as of 08/12/2024) Immunizations Name Administration Dates Next Due COVID-19 [...] encounter Miscellaneous Notes * Telephone Encounter - Maeve Dang OSA - 08/12/2024 9:31 AM EDT Right fax sent pod referral documented in this encounter Plan of Treatment Upcoming Encounters Date Type Department Care Team (Late st Contact Info) Description 09/15/2024 4:00 PM EDT Office Visit [address] [place] [phone] Carol Ledezma MD [address] [place] [address] [place] [phone] 04/09/2025 3:40 PM EST Office Visit [address] [place] [address] Carol Ledezma MD [address] [place] [address] [place] [phone] Health Maintenance Due Date Last Done Comments Adult Wellness Visit 01/23/2006 COVID-19 Vaccine ( season) 2023 02/20/2022, 05/09/2021, 07/28/2020, Additional history exists GFR 09/03/2024 03/06/2024, 08/27, 02/26/2023, Additional history exists Albumin/Creatinine Ratio 03/03/2025 024, 08/21/2022, 07/27/2021, Additional history exists CKD HGB USE SMARTSET 05716 03/06/202503/06, 03/06/2024, 09/10/2023, Additional history exists CKD PHOS USE SMARTSET 39700 03/06/202511/2023, 02/26/2023, 01/26/2022, Additional history exists Depression [...] Documents on File Type Date Recorded Patient Assembler Metal Furniture Expl anation Advance Directives and Living Will 07/10/2022 ADVANCE DIRECTIVE / LIVING WILL Power of Landcare Officer 07/10/2022 POWER OF A TTORNEY - HEALTH CARE Healthcare Agents on File Name Relationship Healthcare Agent Relationshi p Communication Stephanie Perks Adult Child Health Care Repr esentative (appointed verbally by patient or by statute hierarchy) Care Teams Burr Filer Relationship Specialty Start Date End Date Carol Ledezma MD [address] [place] [address] [place] [phone] PCP - General Family Medicine 06/09/14 documented as of this encounter
--- OUTSIDE RECORDS SUMMARY | 2024-08-18 00:54 | External Medical Summary | Summary of Care ---
Author Name Unknown Organization [facility] Address [address] [place] [address] Phone [phone] Care Team Providers Care Store Team Leader Name Role Phone Carol Ledezma MD Primary Care Provide r Reason for Visit * Reason Comments Outpatient Testing Encounter Details Date Type Department Care Team (Late st Contact Info) Description 03/06/2024 2:20 PM EST Laboratory Laboratory [address] [place] [phone] [place] [address] Loss of weight; Iron deficiency anemia, unspecified iron deficiency anemia type; HTN, GOAL BELOW 140/90; Hypertensive kidney disease with stage 3a chronic kidney disease; Dyslipidemia, goal LDL below 130 Allergies Active Allergy Reactions Criticality Noted Date Comments No Known Drug Allergy 10/27/2002 documented as of this encounter (statuses as of 03/06/2024) Medications Multiple Vitamins-Mineral s (DAILY MULTIVITAMIN) CAPS [...] EVERY DAY 90 Tablet 1 4 Active Cephalexin 250 MG Oral Capsule (Keflex) Take 1 Capsule by mouth in the morning and 1 Capsule at noon and 1 Capsule in the evening and 1 Capsule before bedtime. Do all this for 6 days. 24 Capsule 4 03/10/20 24 Active Atenolol 50 MG Oral Tablet (Tenormin)Indica tions:HTN, goal below 140/90 Take 1 Tablet by mouth in the morning. 4 Active documented as of this encounter (statuses as of 03/06/2024) Active Problems Problem Noted Date Diagnosed Date Anemia 01/26/2022 Hypertensive kidney disease with stage 3a chronic kidney disease 03/07/2020 Overview: Per CKD protocol Hip joint replacement status 06/02/2015 Gastroesophageal reflux disease without esophagi tis 06/02/2015 Dyslipidemia, goal LDL below 130 04/05/2009 Overview (04/05/2009): Per Lipid Taxonomy. HTN, GOAL BELOW 140/90 03/04/2009 Overview (03/04/2009): Modified per HTN Taxonomy. Cervicalgia 11/04/2002 Hypothyroidism documented as of this encounter (statuses as of 03/06/2024) Resolved Problems Problem Noted Date Diagnosed Date [...] as of this encounter (statuses as of 03/06/2024) Immunizations Name Administration Dates Next Due COVID-19 [...] Care Team (Late st Contact Info) Description 03/13/2024 1:45 PM EST Imaging Radiology [address] [place] [address] 09/15/2024 4:00 PM EDT Office Visit [address] [place] [phone] Carol Ledezma MD [address] [place] [address] [place] [phone] 04/09/2025 3:40 PM EST Office Visit [address] [place] [phone] Carol Ledezma MD [address] [place] [address] [place] [phone] Pending Results Name Type Priority Associated Diagnoses Date /Time CBC WITH WBC DIFFERENTIAL AND ANEMIA REFLEX WORKUP Lab Routine Loss of weight Iron deficiency anemia, unspecified iron deficiency anemia type 03/06/2024 2:22 PM EST TSH WITH FREE T4 IF INDICATED Lab Routine Loss of weight 03/06/2024 2:22 PM EST COMPREHENSIVE METABOLIC PANEL Lab Routine HTN, GOAL BELOW 140/90 Hypertensive kidney disease with stage 3a chronic kidney disease Dyslipidemia, goal LDL below 130 03/06/2024 2:22 PM EST LIPID PANEL WITH DIRECT LDL IF TG IS HIGH Lab Routine Dyslipidemia, goal LDL below 130 03/06/2024 2:22 PM EST IRON SCREEN, INCLUDING TIBC Lab Routine Iron deficiency anemia, unspecified iron deficiency anemia type 03/06/2024 2:22 PM EST FERRITIN Lab Routine Iron deficiency anemia, unspecified iron deficiency anemia type 03/06/2024 2:22 PM EST ANEMIA CBC Lab Routine Loss of weight Iron deficiency anemia, unspecified iron deficiency anemia type 03/06/2024 2:22 PM EST DIFFERENTIAL, AUTOMATED Lab Routine Loss of weight Iron deficiency anemia, unspecified iron deficiency anemia type 03/06/2024 2:22 PM EST ANEMIA REFLEX CHEMISTRY HOLD Lab Routine Loss of weight Iron deficiency anemia, unspecified iron deficiency anemia type 03/06/2024 2:22 PM EST Health Maintenance Due Date Last Done Comments Adult Wellness Visit 01/23/2006 COVID-19 Vaccine ( season) 2023 02/20/2022, 05/09/2021, 07/28/2020, Additional history exists CKD PHOS USE SMARTSET 79407 02/27/202401/29, 01/26/2022, 11/11/2020, Additional history exists GFR 03/12/2024 09/10/2023, 01/29, 08/21/2022, Additional history exists CKD HGB USE SMARTSET 64514 09/09/202409/09, 09/10/2023, 02/26/2023, Additional history exists TSH 09/09/2024 09/10/2023, 01/29, 08/21/2022, Additional history exists Albumin/Creatinine Ratio 03/03/2025 024, 08/21/2022, 07/27/2021, Additional history exists Depression Screening 03/06/2025 03/06/2024 DXA Scan 09/02/2030 09/03/2023, 10/2023, 10/21/2014, Additional history exists DTap/Tdap Vaccines (3 - Td or Tdap) 03/02/2031 03/02/2021, 09/08/2012, 09/16/1998 Pneumococcal Vaccine: 65+ Years Completed 09/16/2014, 07/20/2010 Zoster Vaccines Completed 01/26/2022, 03/3 04/2021, 01/23/2012 Influenza Vaccine (FLU shot) Completed 11/2023, [...] as of this encounter Visit Diagnoses Diagnosis Loss of weight Iron deficiency anemia, unspecified iron deficiency anemia type HTN, GOAL BELOW 140/90 Unspecified essential hypertension Hypertensive kidney disease with stage 3a chronic kidney disease Dyslipidemia, goal LDL below 130 Other and unspecified hyperlipidemia documented in this encounter Advance Directives Documents on File Type Date Recorded Patient Cyber Security Analyst Expl anation Advance Directives and Living Will 07/10/2022 ADVANCE DIRECTIVE / LIVING WILL Power of Salvage Mend Worker 07/10/2022 POWER OF A TTORNEY - HEALTH CARE Healthcare Agents on File Name Relationship Healthcare Agent Relationshi p Communication Stephanie Perks Adult Child Health Care Repr esentative (appointed verbally by patient or by statute hierarchy) Care Teams Store Team Leader Relationship Specialty Start Date End Date Carol Ledezma MD [address] [place] [address] [place] [phone] PCP - General Family Medicine 06/09/14 documented as of this encounter
--- OUTSIDE RECORDS SUMMARY | 2024-08-18 00:54 | External Medical Summary ---
Author Name Unknown Address Unknown Organization K01:[facility]AT[facility] [place] - [address] [place] [address] Laboratory Report Ordering Provider Test Date Status VAISHNAVI DOBBINS 03/06/2024 14:22:46 Final Observation Date Value Abnormality Reference (Units ) Status Iron 03/06/2024 14:22:46 56 33-151 (ug /dL) Final Iron-binding capacity 03/06/2024 14:22:46 259 250-425 (ug/dL) Final Transferrin Sat % 03/06/2024 14:22:46 22 15 -55 (%) Final Performing Location [facility] [place] - [address] [place] [address]
--- OUTSIDE RECORDS SUMMARY | 2024-08-18 00:54 | External Medical Summary ---
Author Name Unknown Address Unknown Organization [id number]:[facility] [place] [address] [facility] [address] Laboratory Report Ordering Provider Test Date Status VAISHNAVI DOBBINS 03/06/2024 14:22:46 Final Observation Date Value Abnormality Reference (Units ) Status Ferritin 03/06/2024 14:22:46 70 13-150 (ng /mL) Final Postmenopausal women have hi gher ferritin levels than pre-menopausal women. The above reference interval is based on pre-menopausal women. Performing Location [facility] - [address] [place] [address]
--- OUTSIDE RECORDS SUMMARY | 2024-08-18 00:54 | External Medical Summary ---
Author Name Unknown Address Unknown Organization K01:[facility] - [address] [place] [address] Laboratory Report Ordering Provider Test Date Status VAISHNAVI DOBBINS 03/06/2024 14:22:46 Final Observation Date Value Abnormality Reference (Units ) Status Phosphate 03/06/2024 14:22:46 3.6 2.5-4.8 (m g/dL) Final Performing Location [facility] - [address] [place] [address]
--- OUTSIDE RECORDS SUMMARY | 2024-08-18 00:54 | External Medical Summary ---
Author Name Unknown Address Unknown Organization K01:[facility] - [address] [facility] [address] Laboratory Report Ordering Provider Test Date Status VAISHNAVI DOBBINS 03/06/2024 14:22:46 Final Observation Date Value Abnormality Reference (Units ) Status Triglyceride 03/06/2024 14:22:46 133 <=174 ( mg/dL) Final Triglyceride Reference Range s (mg/dL):
<150 Acceptable
150-174 Borderline high
175-499 High
>=500 Very high Cholesterol 03/06/2024 14:22:46 116 <200 (mg /dL) Final Total Cholesterol Reference Ranges (mg/dL):
<200 Desirable
200-239 Borderline high
>=240 High HDL 03/06/2024 14:22:46 34 Below low normal >49 (mg/dL) Final HDL Cholesterol Reference Ra nges (mg/dL):
>=60 High (Desirable)
<50 Low (Undesirable) For Females
<40 Low (Undesirable) For Males NON-HDL CHOLESTEROL 03/06/2024 14:22:46 82 <=159 (mg/dL) Final Non-HDL Cholesterol Referenc e Range (mg/dL):
<100 Target level for high risk ASCVD patient
<130 Optimal for general population
130-159 Near optimal for general population
160-189 Borderline High
190-219 High
>=220 Very High LDL, (calculated) 03/06/2024 14:22:46 55 <= 129 (mg/dL) Final LDL Cholesterol Reference Ra nges (mg/dL):
<70 Target level for high risk ASCVD patient
<100 Optimal for general population
100-129 Near optimal for general population
130-159 Borderline high
160-189 High
>=190 Very high Performing Location [facility] [place] [address] [facility] [address]
--- OUTSIDE RECORDS SUMMARY | 2024-08-18 00:54 | External Medical Summary | Summary of Care ---
Author Name Unknown Organization [facility] Address [address] [place] [address] Phone [phone] Care Team Providers Care Employment And Claims Aide Name Role Phone Carol Ledezma MD Primary Care Provide r Reason for Referral * Precert (Within 10 days (routine)) - Authorized Specialty Diagnoses / Procedures Referred By Contac t Referred To Contact Radiology Diagnoses Loss of weight Early satiety Procedures CT ABD/PELVIS W IV AND W ORAL CONTRAST Carol Ledezma MD [address] [place] [address] [place] [phone] Phone: tel: fax: Referral ID Status Reason Start Date Expiration Date V isits Requested Visits Authorized [id number] Authorized 03/06/2024 999 999 Reason for Visit * Reason Comments Re-Check Encounter Details Date Type Department Care Team (Late st Contact Info) Description 03/06/2024 1:40 PM EST Office Visit Family Medicine [address] [place] [phone] Carol Ledezma MD [address] [place] [address] [place] [phone] Loss of weight*; Hypertensive kidney disease with stage 3a chronic kidney disease; Acute cystitis with hematuria; HTN, GOAL BELOW 140/90; Dyslipidemia, goal LDL below 130; Gastroesophageal reflux disease without esophagitis; Acquired hypothyroidism; Iron deficiency anemia, unspecified iron deficiency anemia type; Early satiety; Memory loss; Impacted cerumen of left ear; Need for prophylactic vaccination and inoculation against influenza; Microalbuminuria Allergies Active Allergy Reactions Criticality Noted Date Comments No Known Drug Allergy 10/27/2002 documented as of this encounter (statuses as of 03/06/2024) Medications Multiple Vitamins-Minera ls (DAILY MULTIVITAMIN) CAPS [...] the morning. 90 Tablet 3 04/17/20 23 Active Lisinopril 20 MG Oral Tablet (Prinivil)Indic [...] DAY 90 Tablet 1 12/18/19 24 Active Cephalexin 250 MG Oral Capsule (Keflex) Take 1 Capsule by mouth in the morning and 1 Capsule at noon and 1 Capsule in the evening and 1 Capsule before bedtime. Do all this for 6 days. 24 Capsule 03/04/20 24 024 Active Atenolol 50 MG Oral Tablet (Tenormin)Indic ations:HTN, goal below 140/90 Take 1 Tablet by mouth in the morning. 03/06/20 24 Active amLODIPine Besylate 2.5 MG Oral Tablet (Norvasc) TAKE ONE TABLET BY MOUTH EVERY MORNING 90 Tablet 3 10/23/19 24 024 Discontinued Atenolol 50 MG Oral Tablet (Tenormin)Indic ations:HTN, goal below 140/90 TAKE ONE TABLET BY MOUTH TWICE DAILY 180 Tablet 1 12/18/19 24 024 Discontinued documented as of this encounter [...] Influenza Virus Vac cine, Unspecified Formulation 02/27/2021,02/02/2020,02/23/2019,02/01,02/09/2017,01/13/2016,02/09/2015 ,03/18/2014,03/16/2013,01/23/2012,1010/2010,01/18/2010,01/17/2009,,02/17/2002,02/24/2001 Seasonal Influenza, High Dos e, Trivalent, PF, [...] Sign Reading Time Taken Comments Blood Pressure 74/51 03/06/2024 1:32 PM EST Pulse 75 03/06/2024 1:32 PM EST Temperature 36.1 °C (97 °F) 03/06/2024 1:32 PM EST Respiratory Rate - - Oxygen Saturation 96% 03/06/2024 1:32 PM EST Inhaled Oxygen Concentration - - Weight 64.4 kg (142 lb) 03/06/2024 1:32 PM EST Height 163.8 cm (5' 4.49") 03/06/2024 1:32 PM ES T Body Mass Index 24.01 03/06/2024 1:32 PM EST documented in this encounter Progress Notes * Carol Ledezma MD - 03/06/2024 1:43 PM EST Subjective: Nano Will is a 84 year old female. Chief Complaint Patient presents with Re-Check HPI: Brief Clinical History Ms. Will is a 84 year old female last seen in Family Medicine [facility] on09/10/2023 by Jayesh Mack She has a h/o the following chronic conditions indicated on the problem list: Chronic Conditions None Here with her daughter, Stephanie Garcias. Has lost about 30 pounds in the last year. Daughter states she is eating very little. She states patient will report feeling bloated all the time and feels full easily. Had EGD 06/2022 that showed gastritis but otherwise was OK. Recommended to take pantoprazole, which she is taking. Was to have colonscopy but declined to have it done. She denies abdominal pain, nausea, or vomiting today. She does admit to feeling full easily. BP noted to be very low today in the office. Denies feeling dizzy or lightheaded. Has not been checking her blood pressure at home. Daughter notes she is taking her blood pressure medications but noteating or drinking all that well and has lost a lot of weight in the last year. Daughter noticed she was more confused on 03/01/24 when she came to check on her. Was having some dysuria and hematuria for 2 weeks prior to that. Had urine test 03/03/24 that was positive and + E Colion urine culture. She is taking the cephalexin that was sent in and feeling much better. No fever or chills. Daughter notes she is much less confused and back to baseline. Daughter does not that her memory has been getting worse slowly. Her levothyroxine was reduced in the spring due to suppressed TSH and high T4. Did not come back for recheck labs yet. Daughter states she was not taking it correctly but she is now. Daughter is helping with her medications. She lives alone in an apartment at the [facility] and has been doing well there. Hard of hearing. Hearing has been worse lately. Daughter would like ears checked for wax. Results for orders placed or performed in visit on 03/03/24 URINALYSIS, REFLEX TO MICROSCOPIC Result Value Ref Range Color, Urine Yellow Colorless, Light Yellow, Yellow, Dark Yellow Clarity, Urine Slightly Cloudy (A) Clear Glucose, Urine Negative Negative mg/dL Bilirubin, Urine Negative Negative Ketone, Urine Negative Negative mg/dL Specific [place], Urine 1.012 1.003 - 1.030 Blood, Urine Small (A) Negative pH, Urine 6.0 5.0 - 7.5 Units Protein, Urine 30 (A) Negative mg/dL Urobilinogen, Urine Normal Normal mg/dL Nitrite, Urine Negative Negative Esterase, Urine Large (A) Negative RBC, Urine 20-29 (A) 0 - 2 /HPF WBC, Urine 50+ (A) 0 - 2 /HPF Bacteria, Urine 0-25 0 - 25 /HPF WBC Clumps, Urine Present (A) None /HPF PHM: Patient Active Problem List Diagnosis Cervicalgia Hypothyroidism HTN, GOAL BELOW 140/90 Dyslipidemia, goal LDL below 130 Hip joint replacement status Gastroesophageal reflux disease without esophagitis Hypertensive kidney disease with stage 3a chronic kidney disease Anemia Current Outpatient Medications Medication Sig Dispense Refill [...] mouth in the morning. Takes for allergies. Pantoprazole Sodium 40 MG Oral Tablet Delayed Release (Protonix) Take 1 Tablet by mouth in the morning. 90 Tablet 3 Lisinopril 20 MG Oral Tablet (Prinivil) TAKE ONE TABLET BY MOUTH EVERY DAY 90 Tablet 3 Alendronate Sodium 70 MG Oral Tablet (Fosamax) [...] breakfast or other meds). 30 Tablet 11 amLODIPine Besylate 2.5 MG Oral Tablet (Norvasc) TAKE ONE TABLET BY MOUTH EVERY MORNING 90 Tablet 3 Atorvastatin Calcium 40 MG Oral Tablet (Lipitor) TAKE ONE TABLET BY MOUTH EVERY DAY 90 Tablet 1 Atenolol 50 MG Oral Tablet (Tenormin) TAKE ONE TABLET BY MOUTH TWICE DAILY 180 Tablet 1 Cephalexin 250 MG Oral Capsule (Keflex) Take 1 Capsule by mouth in the morning and 1 Capsule at noon and 1 Capsule in the evening and 1 Capsule before bedtime. Do all this for 6 days. 24 Capsule 0 No current facility-administered medications for this visit. Past Medical History: Diagnosis Date Cervicalgia Dyslipidemia, goal to be determined HTN, goal below 140/90 Hypothyroidism Menopause Mucous polyp of cervix Past Surgical History: Procedure Laterality Date COLONOSCOPY W/ BIOPSY (RECTUM) 02/22/2011 IH, Diverticulosis,await bx COLONOSCOPY, DIAGNOSTIC (RECTUM) 3-4 years ago neg CXR 2 VIEWS AP/PA & LATERAL 05/02/2015 mild atelectasis, [facility] EGD, FLEXIBLE, DIAGNOSTIC N/A 07/02/2022 Z-LINE 37CM, FEW VENOUS IN MIDDLE & LOWER 3RD, MILD ANTRAL GASTRITIS / NO SPECIMENS COLLECTED / EKG 05/02/2015 NSR, [facility] LIGATE/CUT OVIDUCT(S) 20 yo Tubal Ligation [place] REVJ TOT HIP ARTHRP FEM ONLY W/WO ALGRFT Right 06/26/2022 Dr. Hancock REMOVE IMPACTED EAR WAX W/ INSTRUMENT, ONE EAR 01/22/2006 TOTAL HIP REPLACEMENT & PROSTHESIS 06/01/2015 right DENNISE, Dr. Hancock, [facility] Social History Socioeconomic History Marital status: Spouse [...] Stability Do you currently live in a fci or have no steady place to sleep [...] - for ages0-17 years): Not on file Review of patient's allergies indicates: Allergen Reactions No Known Drug Allergy Objective: BP 74/51 | Pulse 75 | Temp 36.1 °C (97 °F) (Tympanic) | Ht 1.638 m (5' 4.49") | Wt 64.4 kg (142 lb) | SpO2 96% | BMI 24.01 kg/m² | BSA 1.71 m² Physical Exam: General: alert, no distress, well nourished, and well developed but does appear to have recently lost weight Head: Normocephalic, No masses, lesions, tenderness or abnormalities Eye Exam: PERRLA, extraocular movements intact, conjunctiva are pink and non- injected, sclera clear Ears: External ears normal, R TM normal, L TM not visualized secondary to cerumen Nose: no mucosal erythema, no mucosal edema, no purulent discharge Oropharynx: no exudate, no erythema, lips, buccal mucosa, and tongue normal, and mucous membranes are moist Neck: supple, no adenopathy, no bruits Heart: regular rate & rhythm, no murmur, and no gallops Lungs: chest symmetric with normal AP diameter, no chest deformities noted, no chest wall tenderness, lungs clear to auscultation Abdomen: abdomen soft, non-tender, normal bowel sounds, no masses or organomegaly, and no rebound or guarding Extremities: no edema, no clubbing, no cyanosis Neuro Exam: alert & oriented x 3 with fluent speech, no focal motor/sensory deficits Extensive ROS Constitutional (f/c/wt/vision/hearing): see above hpi Resp (cough/sob/morelos): Negative CV (cp/palp/fluttering/diaphoresis/morelos/pnd):see above hpi GI (n/v/d/hrtburn): see above hpi Endo (hair/cold or heat intol/ 3 p's): see above hpi Neuro (shaking/weak/fatigu/parasthesi/): see above hpi Skin (rash/easy bruis/xerosis): Negative Psy (si/hi/halluc/): Negative (nocturia/hesit/drib/sexual review): see above hpi Lymph (swollen glands/b sx's/: Negative ASSESSMENT: Loss of weight (Primary)--unintentional weight loss of 30 pounds in 1 year. Reports bloating and early satiety. EGD 06/2022 just showed gastritis. Declines colonoscopy. Check labs and CT scan of abdomen and pelvis. - CBC WITH WBC DIFFERENTIAL AND ANEMIA REFLEX WORKUP; Future; Expected date: 03/06/2024 - TSH WITH FREE T4 IF INDICATED; Future; Expected date: 03/06/2024 - CT ABD/PELVIS W IV AND W ORAL CONTRAST Hypertensive kidney disease with stage 3a chronic kidney disease--BP low today. Stop amlodipine andreduce atenolol to once daily. Hold all BP medications until SBP is improved to over 110. Daughter will message readings next week. - COMPREHENSIVE METABOLIC PANEL; Future; Expected date: 03/06/2024 - PHOSPHORUS Acute cystitis with hematuria--complete cephalexin as above. HTN, GOAL BELOW 140/90--as above. Reduce medications as above. - COMPREHENSIVE METABOLIC PANEL; Future; Expected date: 03/06/2024 Dyslipidemia, goal LDL below 130--continue atorvastatin 40 mg daily. Check labs. - COMPREHENSIVE METABOLIC PANEL; Future; Expected date: 03/06/2024 - LIPID PANEL WITH DIRECT LDL IF TG IS HIGH; Future; Expected date: 03/06/2024 Gastroesophageal reflux disease without esophagitis--continue pantoprazole 40 mg daily. Acquired hypothyroidism--levothyroxine reduced to 88 mcg in August 2023 due to suppressed TSH and highfree T4. Due for repeat labs. Iron deficiency anemia, unspecified iron deficiency anemia type--check labs. Had EGD but declined colonoscopy. - CBC WITH WBC DIFFERENTIAL AND ANEMIA REFLEX WORKUP; Future; Expected date: 03/06/2024 - IRON SCREEN, INCLUDING TIBC; Future; Expected date: 03/06/2024 - FERRITIN; Future; Expected date: 03/06/2024 Early satiety--check CT as above. - CT ABD/PELVIS W IV AND W ORAL CONTRAST Memory loss--monitor for changes. Is doing OK at home at this time. Impacted cerumen of left ear--start Debrox course and return for flushing if needed. Flushing todaynot successful. Need for prophylactic vaccination and inoculation against influenza - INFLUENZA VAC., TRIVALENT, HD, PF, 65 AND ABOVE, 0.5 ML IM (FLUZONE HD) Microalbuminuria--repeat microalbumin after UTI clears. - ALBUMIN / CREATININE RATIO, URINE; Future; Expected date: 06/06/2024 Follow Up: Return in about 6 months (around 09/03/2024) for Clinic Visit. | For: Clinic Visit PLAN: Continue present medication(s): Begin medication(s): Debrox drops to left ear and return for flushing if needed. Attempts at flushing today unsuccessful. Discontinue medication(s): Amlodipine due to hypotension Change dose of medication(s) to Reduce atenolol to 50 mg once daily due to hypotension. Study(ies) ordered: CT scan of abdomen and pelvis due to early satiety, bloating, and unexplained weight loss of 30 pounds in the last year. Schedule labs: CBC w/diff/with anemia reflex, CMP, TSH w/free T4 if abnormal, iron screen, ferritin, and phosphorus. Patient education: Discussed weight loss, lab work up and CT scan to evaluate for causes. She had arecent EGD in 06/3022 that was OK other than some gastritis. Declines colonoscopy. Check CT scan as above. Repeat microalbumin in the future after treatment for UTI is complete. Suspect microalbuminuria was due to UTI and not true microalbuminuria. Also recommend holding all of her BP medications until daughter is able to recheck her BP and hold if SBP is less than 110. Reduce her medications as above. Suspect hypotensive as she has lost weightand is not eating or drinking that well. Her UTI symptoms are improved since starting cephalexin. Follow up: in 6 month(s). Carol Ledezma MD I spent a total of 40-54 minutes (exact time 45 mins) on the date of service in preparation, delivery, and documentation of the care provided to Nano Will excluding any time spent in the performance of separately billed services or time spent by another provider/QHP. documented in this encounter Nursing Notes * Silvia Walker LPN - 03/06/2024 1:32 PM EST 6 month recheck documented in this encounter Plan of Treatment Upcoming Encounters Date Type Department Care Team (Late st Contact Info) Description 03/13/2024 1:45 PM EST Imaging Radiology [address], [address] [place] [id number] 09/15/2024 4:00 PM EDT Office Visit [address] [phone] Carol Ledezma MD [address] [place] [address] [place] [phone] 04/09/2025 3:40 PM EST Office Visit [address] [phone] Carol Ledezma MD [address] [place] [address] [place] [phone] Pending Results Name Type Priority Associated Diagnoses [...] LDL below 130 03/06/2024 2:22 PM EST PHOSPHORUS Lab Routine Hypertensive kidney disease with stage 3a chronic kidney disease 03/06/2024 2:22 PM EST IRON SCREEN, INCLUDING TIBC Lab Routine Iron deficiency anemia, unspecified iron deficiency anemia type 03/06/2024 2:22 PM EST FERRITIN Lab Routine Iron deficiency anemia, unspecified iron deficiency anemia type 03/06/2024 2:22 PM EST Scheduled Orders Name Type Priority Associated Diagnoses Orde r Schedule CBC WITH WBC DIFFERENTIAL AND ANEMIA REFLEX WORKUP Lab Routine Loss of weight Iron deficiency anemia, unspecified iron deficiency anemia type Expected: 03/06/2024 (Approximate), Expires: 03/06/2025 TSH WITH FREE T4 IF INDICATED Lab Routine Loss of weight Expected: 03/06/2024 (Approximate), Expires: 03/06/2025 COMPREHENSIVE METABOLIC PANEL Lab Routine HTN, GOAL BELOW 140/90 Hypertensive kidney disease with stage 3a chronic kidney disease Dyslipidemia, goal LDL below 130 Expected: 03/06/2024 (Approximate), Expires: 03/06/2025 LIPID PANEL WITH DIRECT LDL IF TG IS HIGH Lab Routine Dyslipidemia, goal LDL below 130 Expected: 03/06/2024, Expires: 03/06/2025 IRON SCREEN, INCLUDING TIBC Lab Routine Iron deficiency anemia, unspecified iron deficiency anemia type Expected: 03/06/2024 (Approximate), Expires: 03/06/2025 FERRITIN Lab Routine Iron deficiency anemia, unspecified iron deficiency anemia type Expected: 03/06/2024 (Approximate), Expires: 03/06/2025 CT ABD/PELVIS W IV AND W ORAL CONTRAST Medical Imaging Routine Loss of weight Early satiety Ordered: 03/06/2024 ALBUMIN / CREATININE RATIO, URINE Lab Routine Microalbuminuria Expected: 06/06/2024 (Approximate), Expires: 03/06/2025 Health Maintenance Due Date Last Done Comments Adult Wellness Visit 01/23/2006 COVID-19 Vaccine ( season) 2023 02/20/2022, 05/09/2021, 07/28/2020, Additional history exists CKD PHOS USE SMARTSET 00498 02/27/202401/29, 01/26/2022, 11/11/2020, Additional history exists GFR 03/12/2024 09/10/2023, 01/29, 08/21/2022, Additional history exists CKD HGB USE SMARTSET 00133 09/09/202409/09, 09/10/2023, 02/26/2023, Additional history exists TSH [...] this encounter Visit Diagnoses Diagnosis Loss of weight- Primary Hypertensive kidney disease with stage 3a chronic kidney disease Acute cystitis with hematuria Acute cystitis HTN, GOAL BELOW 140/90 Unspecified essential hypertension Dyslipidemia, goal LDL below 130 Other and unspecified hyperlipidemia Gastroesophageal reflux disease without esophagitis Esophageal reflux Acquired hypothyroidism Unspecified hypothyroidism Iron deficiency anemia, unspecified iron deficiency anemia type Early satiety Memory loss Impacted cerumen of left ear Impacted cerumen Need for prophylactic vaccination and inoculation against influenza Microalbuminuria Proteinuria documented in this encounter Advance Directives Documents on File Type Date Recorded Patient Digital Marketing Strategist Expl anation Advance Directives and Living Will 07/10/2022 ADVANCE DIRECTIVE / LIVING WILL Power of Network Support Specialist 07/10/2022 POWER OF A TTORNEY - HEALTH CARE Healthcare Agents on File Name Relationship Healthcare Agent Relationshi p Communication Stephanie Perks Adult Child Health Care Repr esentative (appointed verbally by patient or by statute hierarchy) Care Teams Employment And Claims Aide Relationship Specialty Start Date End Date Carol Ledezma MD [address] [place] [address] [place] [id number] PCP - General Family Medicine 06/09/14 documented as of this encounter
--- OUTSIDE RECORDS SUMMARY | 2024-08-18 00:54 | External Medical Summary | Summary of Care ---
Author Name Unknown Organization [facility] Address [address] [place] [address] Phone [phone] Care Team Providers Care Barn Manager Name Role Phone Carol Ledezma MD Primary Care Provide r Reason for Visit * Reason Onset Date Comments Test Results 03/20/2024 Unexpected or In determinate Result Encounter Details Date Type Department Care Team ([facility] st Contact Info) Description 03/20/2024 Telephone Rad[address] [facility] [place] [address] Carol Ledezma MD [address] [place] [address] [place] [id number] Test Results (Unexpected or Indeterminate ... Allergies Active Allergy Reactions Criticality Noted Date Comments No Known Drug Allergy 10/27/2002 documented as of this encounter (statuses as of 03/20/2024) Medications Multiple Vitamins-Mineral s (DAILY MULTIVITAMIN) CAPS [...] as of this encounter (statuses as of 03/20/2024) Active Problems Problem Noted Date Diagnosed Date [...] as of this encounter (statuses as of 03/20/2024) Resolved Problems Problem Noted Date Diagnosed Date [...] as of this encounter (statuses as of 03/20/2024) Immunizations Name Administration Dates Next Due COVID-19 mRNA, LNP-s, No Pre serve, 2-Dose Series (Moderna) 07/28/2020,06/29/2020 COVID-19, mRNA, LNP-s, PF, B ooster, 100mcg/0.5mg (Moderna) 05/09/2021 Covid-19, Mrna, Lnp-s, Pf, B ivalent, 30 Mcg, IM, 12 yrs and above (Pressi) 02/20/2022 Pneumococcal Conjugate Vacc, 13 Valent (Prevnar) 09/16/2014 Pneumococcal Polysaccharide PPV23 (Pneumovax) 07/20/2010 Seasonal Influenza Vac., MDV , IM, 0.5 mL (Fluzone) 03/18/2014,03/16/2013,01/23/2012,02/02,01/18/2010,01/17/2009,04/03/2007 ,02/17/2002,02/24/2001 Seasonal Influenza Virus Vac cine, Unspecified Formulation 02/27/2021,02/02/2020,02/23/2019,02/01,02/09/2017,01/13/2016,02/09/2015 ,03/18/2014,03/16/2013,01/23/2012,10/2010,01/18/2010,01/17/2009, 7,02/17/2002,02/24/2001 Seasonal Influenza, High Dos e, Trivalent, PF, IM (Fluzone HD) 03/06/2024 Seasonal Influenza, PF, 6 M & above, IM , (FluLaval or Fluzone) 02/02/2020,02/01/2018,02/09/2017 Seasonal Influenza, Quadriva lent Hd (Fluzone Hd) 02/26/2023,01/26/2022,02/27/2021 Seasonal Influenza, Quadriva lent, No Preserve, IM 01/13/2016,02/09/2015 Seasonal Influenza, Trivalen t, Adjuvanted, 65+ YRS, PF, (Fluad) 02/23/2019 TD - Tetanus/Diptheria (ADULT) 09/16/1998 TDAP (age 10 and older)(Boostrix) 03/02/2021, Varicella [...] encounter Miscellaneous Notes * Telephone Encounter - Liset Freeman RN - 03/20/2024 1:56 PM EST See patient message from same day, Carol Ledezma MD sent message and patient did read myG * Telephone Encounter - Carol Ledezma MD - 03/20/2024 12:21 PM EST Sent [employer] message * Telephone Encounter - Celsa Thomson OSA - 03/20/2024 12:12 PM EST Hello- The radiologist discovered an unexpected or indeterminate finding on Nano Will ([id number]) and asks that you review the following report. Study Type: CT ABD/PELVIS W IV AND W ORAL CONTRAST Date of Study: 03/13/2024 IMPRESSION 1. No acute abdominal or pelvic abnormality. 2. 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 The superior mesenteric and inferior mesenteric arteries are widely patent and there are no imaging findings of bowel ischemia. 3. Colonic diverticulosis without evidence of diverticulitis. 4. Nonobstructing 0.8 cm calculus in the lower pole of the right kidney. 5. Probable enlargement of the ascending thoracic aorta, which is incompletely imaged and cannot beaccurately measured on this study. Follow-up with chest CT is recommended, preferably with intravenous contrast. 6. Branching tubular opacities in the medial right middle lobe, which are hyperdense and likely represent either bronchi distended with inspissated secretions or distended pulmonary vessels. These can also be further evaluated with chest CT. Please respond to this encounter to acknowledge receipt of this message and take responsibility to ensure this report is reviewed. Thank you, Celsa Thomson, DEE Client Service [facility] documented in this encounter Plan of Treatment Upcoming Encounters Date Type Department Care Team (Late st Contact Info) Description 09/15/2024 4:00 PM EDT Office Visit [address] [phone] Carol Ledezma MD [address] [place] [address] [place] [phone] 04/09/2025 3:40 PM EST Office Visit [address] [phone] Carol Ledezma MD [address] [place] [address] [place] [address] Health Maintenance Due Date Last Done Comments Adult Wellness Visit 01/23/2006 COVID-19 Vaccine ( season) 2023 02/20/2022, 05/09/2021, 07/28/2020, Additional history exists GFR 09/03/2024 03/06/2024, 08/27, 02/26/2023, Additional history exists Albumin/Creatinine Ratio 03/03/2025 024, 08/21/2022, 07/27/2021, Additional history exists CKD HGB USE SMARTSET 04588 03/06/202503/06, 03/06/2024, 09/10/2023, Additional history exists CKD PHOS USE SMARTSET 14489 03/06/20250 11/2023, 02/26/2023, 01/26/2022, Additional history exists Depression Screening 03/06/2025 03/06/2024 TSH 03/06/2025 03/06/2024, 08/27, 02/26/2023, Additional history exists DXA Scan 09/02/2030 09/03/2023, 05/0 10/2023, 10/21/2014, Additional history exists DTap/Tdap Vaccines [...] Documents on File Type Date Recorded Patient Executive Vp Expl anation Advance Directives and Living Will 07/10/2022 ADVANCE DIRECTIVE / LIVING WILL Power of Detective Private Eye 07/10/2022 POWER OF A TTORNEY - HEALTH CARE Healthcare Agents on File Name Relationship Healthcare Agent Relationshi p Communication Stephanie Perks Adult Child Health Care Repr esentative (appointed verbally by patient or by statute hierarchy) Care Teams Barn Manager Relationship Specialty Start Date End Date Carol Ledezma MD [address] [place] [address] [place] [phone] PCP - General Family Medicine 06/09/14 documented as of this encounter
--- OUTSIDE RECORDS SUMMARY | 2024-08-18 00:54 | External Medical Summary ---
Author Name Unknown Address Unknown Organization [id number]:LABORATORY [facility] [place] - [address] [facility] [address] Laboratory Report Ordering Provider Test Date Status SHILPIVAISHNAVI 03/06/2024 14:22:46 Final Observation Date Value Abnormality Reference (Units ) Status Retic, % (auto) 03/06/2024 14:22:46 1.30 0.80-1.90 (%) Final Reticulocytes, Absolute 03/06/2024 14:22:46 49.3 31.3-100.1 (K/uL) Final Reticulocyte fraction, immature 03/06/2024 14:22:46 21.2 Above high normal 2.5-20.6 (%) Final Reticulocyte HGB 03/06/2024 14:22:46 35.3 29.7-37.4 (pg) Final Performing Location LABORATORY [facility] [place] - [address] [place] [address]
--- OUTSIDE RECORDS SUMMARY | 2024-08-18 00:54 | External Medical Summary | Summary of Care ---
Author Name Unknown Organization [facility] Address [address] [place] [address] Phone [phone] Care Team Providers Care Procurement Forester Name Role Phone Carol Ledezma MD Primary Care Provide r Reason for Visit * Reason Comments Outpatient Testing Encounter Details Date Type Department Care Team (Late st Contact Info) Description 03/03/2024 10:20 AM EST Laboratory Laboratory [address] [place] [phone] [place] [address] Dysuria Allergies Active Allergy Reactions Criticality Noted Date Comments No Known Drug Allergy 10/27/2002 documented as of this encounter (statuses as of 03/03/2024) Medications Medication Sig Dispensed Refills Start Date End Date Status Multiple Vitamins-Minerals (DAILY MULTIVITAMIN) CAPS Take 1 Cap by mouth daily. 100 Cap 0 06/09/2015 Active fish oil concentrate (OMEGA-3) 1000 MG CAPS Take 1 Cap by mouth 2 times a day. 60 Cap 0 06/09/2015 Active Aspirin 81 MG Tablet Take 1 Tablet by mouth in the morning. Delayed release. 06/27/2022 Active Calcium Carbonate-Vitamin D 600-400 MG-UNIT Oral Tablet Take 1 Tablet by mouth every other day. 30 Tab 05/17/2017 Active Cyanocobalamin 100 MCG Oral Tablet Take 1 Tablet by mouth in the morning. 07/02/2022 Active Acetaminophen 500 MG Oral Tablet (Tylenol) Take 2 Tablets by mouth every 8 hours as needed for Pain, Moderate. 06/27/2022 Active diphenhydrAMINE HCl 50 MG Oral Tablet Take 1 Tablet by mouth in the morning. Takes for allergies. Active Pantoprazole Sodium 40 MG Oral Tablet Delayed Release (Protonix)Indication s:Gastroesophageal reflux disease without esophagitis Take 1 Tablet by mouth in the morning. 90 Tablet 3 04/17/2023 Active Lisinopril 20 MG Oral Tablet (Prinivil)Indication s:HTN, goal below 140/90 TAKE ONE TABLET BY MOUTH EVERY DAY 90 Tablet 3 07/30/2023 Active Alendronate Sodium 70 MG Oral Tablet (Fosamax) Take 1 Tablet by mouth once a week. with 8 oz. water 30 minutes before first meal of the day. Remain upright for 30 min after taking tablet 15 Tablet 3 09/06/2023 Active Levothyroxine Sodium 88 MCG Oral Tablet (Levoxyl)Indications :Hypothyroidism Take 1 Tablet by mouth in the morning. (at least 30 min prior to breakfast or other meds). 30 Tablet 11 09/12/2023 Active amLODIPine Besylate 2.5 MG Oral Tablet (Norvasc) TAKE ONE TABLET BY MOUTH EVERY MORNING 90 Tablet 3 10/23/2023 Active Atorvastatin Calcium 40 MG Oral Tablet (Lipitor)Indications :Dyslipidemia, goal LDL below 130 TAKE ONE TABLET BY MOUTH EVERY DAY 90 Tablet 1 12/18/2023 Active Atenolol 50 MG Oral Tablet (Tenormin)Indication s:HTN, goal below 140/90 TAKE ONE TABLET BY MOUTH TWICE DAILY 180 Tablet 1 12/18/2023 Active documented as of this encounter (statuses as of 03/03/2024) Active Problems Problem Noted Date Diagnosed Date Anemia 01/26/2022 Hypertensive kidney disease with stage 3a chronic kidney disease 03/07/2020 Overview: Per CKD protocol Hip joint replacement status 06/02/2015 Gastroesophageal reflux disease without esophagi tis 06/02/2015 Dyslipidemia, goal LDL below 130 04/05/2009 Overview: Per Lipid Taxonomy. HTN, GOAL BELOW 140/90 03/04/2009 Overview: Modified per HTN Taxonomy. Cervicalgia 11/04/2002 Hypothyroidism documented as of this encounter (statuses as of 03/03/2024) Resolved Problems Problem Noted Date Diagnosed Date [...] 08/08/2011 09/16/2014 ADVANCE DIRECTIVE INFORMATION 11/15/2005 03/02/2024 Overview: Yes, Patient instructed to provide copy of advance directive for provider to review and to be scanned into Electronic Medical Record Mixed dyslipidemia 01/30/2003 9 Overview: Per Lipid Taxonomy. BENIGN HYPERTENSION 11/04/2002 03/04/20 09 Overview: Modified per HTN Taxonomy. CERVICAL DISC DEGEN 11/04/2002 12/27/19 18 Menopause 09/16/2014 HTN, goal below 140/90 05/27 Overview: Resolved per Duplicate Protocol #2. Dyslipidemia, goal to be determined 03/23/2009 Overview: Per Lipid Taxonomy Hypothyroidism 05/27/2008 Overview: Resolved per Duplicate Protocol #2. HTN, goal below 140/90 05/27 Overview: Resolved per Duplicate Protocol #2. documented as of this encounter (statuses as of 03/03/2024) Immunizations Name Administration Dates Next Due COVID-19 [...] Unspecified Formulation 02/27/2021,02/02/2020,02/23/2019,02/01,02/09/2017,01/13/2016,02/09/2015 ,03/18/2014,03/16/2013,01/23/2012,10/2010,01/18/2010,01/17/2009, 7,02/17/2002,02/24/2001 Seasonal Influenza, PF, 6 M & above, [...] pur e alcohol) PHQ-2 Answer Date Recorded PHQ-2 Score 0 02/23/2019 Hunger Vital Sign Answer Date Recorded Worried About Running Out of Food in the Last Ye ar Never true 03/28/2020 Ran Out of Food in the Last Year Never true 03/28/2020 Sex and Gender Information Value Date Recorded Sex Assigned at Female 09/05/2023 8:05 AM EDT Gender Identity Female 09/05/2023 8:05 AM EDT Sexual Orientation Straight 09/05/2023 8: 05 AM EDT Job Start Date Occupation Industry Not on file Not on file Not on file documented as of this encounter Plan of Treatment Upcoming Encounters Date Type Department Care Team (Late st Contact Info) Description 03/06/2024 1:40 PM EST Office Visit [address] [phone] Carol Ledezma MD [address] [place] [address] [place] [id number] 09/15/2024 4:00 PM EDT Office Visit [address] [phone] Carol Ledezma MD [address] [place] [address] [place] [phone] Pending Results Name Type Priority Associated Diagnoses Date /Time URINALYSIS, REFLEX TO MICROSCOPIC Lab Routine Dysuria 03/03/2024 10:01 AM EST Health Maintenance Due Date Last Done Comments Adult Wellness Visit 01/23/2006 Depression Screening 02/24/2020 02/23/2019 Albumin/Creatinine Ratio 08/22/2023 023, 07/27/2021, 05/28/2006 COVID-19 Vaccine ( season) 2023 02/20/2022, 05/09/2021, 07/28/2020, Additional history exists Influenza Vaccine (FLU shot) (#1) 2023 02/26/2023, 01/26/2022, 02/27/2021, Additional history exists CKD PHOS USE SMARTSET 40791 02/27/202401/29, 01/26/2022, 11/11/2020, Additional history exists GFR 03/12/2024 09/10/2023, 01/29, 08/21/2022, Additional history exists CKD HGB USE SMARTSET 49987 09/09/202409/09, 09/10/2023, 02/26/2023, Additional history exists TSH 09/09/2024 09/10/2023, 01/29, 08/21/2022, Additional history exists DXA Scan 09/02/2030 09/03/2023, 05/0 10/2023, 10/21/2014, Additional history exists DTap/Tdap Vaccines (3 - Td or Tdap) 03/02/2031 03/02/2021, 09/08/2012, 09/16/1998 Pneumococcal Vaccine: 65+ Years Completed 09/16/2014, 07/20/2010 Zoster Vaccines Completed 01/26/2022, 06/29, 01/23/2012 HPV (Gardasil) Vaccine Aged Out No lo [...] as of this encounter Visit Diagnoses Diagnosis Dysuria documented in this encounter Advance Directives Documents on File Type Date Recorded Patient Director [place] Expl anation Advance Directives and Living Will 07/10/2022 ADVANCE DIRECTIVE / LIVING WILL Power of Guard Captain 07/10/2022 POWER OF A TTORNEY - HEALTH CARE Healthcare Agents on File Name Relationship Healthcare Agent Relationshi p Communication Stephanie Perks Adult Child Health Care Repr esentative (appointed verbally by patient or by statute hierarchy) Care Teams Procurement Forester Relationship Specialty Start Date End Date Carol Ledezma MD [address] [place] [address] [place] [phone] PCP - General Family Medicine 06/09/14 documented as of this encounter
--- OUTSIDE RECORDS SUMMARY | 2024-08-18 00:54 | External Medical Summary ---
Author Name Unknown Address Unknown Organization K01:[facility]ATORY [facility] - [address] [facility] [address] Laboratory Report Ordering Provider Test Date Status VAISHNAVI DOBBINS 03/06/2024 14:22:46 Final Observation Date Value Abnormality Reference (Units ) Status WBC, Total 03/06/2024 14:22:46 10.03 4.00-10.8 0 (K/uL) Final RBC 03/06/2024 14:22:46 3.86 3.85-5.15 (M/uL) Final Hemoglobin 03/06/2024 14:22:46 11.9 Below low normal 12 .0-15.3 (g/dL) Final Anemia reflex testing trigge rs on a HGB < 12.0 for Females and HGB < 13.0 for Males in accordance with the WHO Anemia Guidelines
Anemia reflex testing triggers on a HGB < 12.0 for Females and HGB < 13.0 for Males in accordance with the WHO Anemia Guidelines HCT 03/06/2024 14:22:46 38.1 36.0-45.2 (%) Final MCV 03/06/2024 14:22:46 98.7 81.5-97.5 (fL) Final MCH 03/06/2024 14:22:46 30.8 27.0-34.0 (pg) Final MCHC 03/06/2024 14:22:46 31.2 32.0-36.0 (g/dL) Final RDW 03/06/2024 14:22:46 12.9 11.5-15.5 (%) Final Platelets 03/06/2024 14:22:46 412 Above hi gh normal 140-400 (K/uL) Final MPV 03/06/2024 14:22:46 9.7 6.6-11.1 ( fL) Final Nucleated erythrocytes/100 leukocytes [Ratio] in Blood by Automated count 03/06/2024 14:22:46 0 <=0 (/100 WBCs) Final Performing Location LABORATORY [facility] [place] - [address] [facility] [address]
--- OUTSIDE RECORDS SUMMARY | 2024-08-18 00:54 | External Medical Summary ---
Author Name Unknown Address Unknown Organization [id number]:LABORATORY [facility] [place] - [address] [place] [address] Laboratory Report Ordering Provider Test Date Status VAISHNAVI DOBBINS 03/06/2024 14:22:46 Final Observation Date Value Abnormality Reference (Units ) Status Vitamin B12 03/06/2024 14:22:46 >2000 Above high normal 232-1245 (pg/mL) Final Performing Location [facility] - [address] [place] [address]
--- OUTSIDE RECORDS SUMMARY | 2024-08-18 00:54 | External Medical Summary ---
Author Name Unknown Address Unknown Organization [id number]:[facility] - [address] [facility] [address] Laboratory Report Ordering Provider Test Date Status KASANDRAVAISHNAVI CARRION 03/06/2024 14:22:46 Final Observation Date Value Abnormality Reference (Units ) Status SYNC LEUKOCYTES IN BLOOD BY AUTOMATED COUNT 03/06/2024 14:22:46 10.03 4.00-10.80 (K/uL) Final Segs 03/06/2024 14:22:46 66.5 40.0-75.0 (%) Final Lymphs % 03/06/2024 14:22:46 20.1 18.0-42.0 (%) Final Monos 03/06/2024 14:22:46 9.6 1.0-11.0 (%) Final Eosinophils 03/06/2024 14:22:46 2.5 0.0-6.0 (%) Final Basos 03/06/2024 14:22:46 0.6 0.0-2.0 (%) Final Immature Granulocyte, Percent 03/06/2024 14:22:46 0.7 0.0-2.0 (%) Final Absolute Segs 03/06/2024 14:22:46 6.67 1.80-7.70 (K/uL) Final Lymphs, absolute 03/06/2024 14:22:46 2.02 1.00-4.80 (K/ul) Final Monos, Abs 03/06/2024 14:22:46 0.96 0.00-1.10 (K/uL) Final Eos, Abs 03/06/2024 14:22:46 0.25 0.00-0.70 (K/uL) Final Basos, Abs 03/06/2024 14:22:46 0.06 0.00-0.20 (K/uL) Final Immature Granulocytes, Number 03/06/2024 14:22:46 0.07 0.00-0.20 (K/uL) Final Performing Location LAB[facility]ATORY [facility] [place] [address] [facility] [address]
--- OUTSIDE RECORDS SUMMARY | 2024-08-18 00:54 | External Medical Summary | Summary of Care ---
Author Name Unknown Organization [facility] Address [address] [place] [address] Phone [phone] Care Team Providers Care Absorber Operator Name Role Phone Carol Ledezma MD Primary Care Provide r Reason for Visit * Reason Onset Date Comments Test Results 03/20/2024 Unexpected or In determinate Result Encounter Details Date Type Department Care Team ([facility] st Contact Info) Description 03/20/2024 Telephone [address] [facility] [place] [address] Carol Ledezma MD [address] [place] [address] [place] [id number] Test Results (Unexpected or [...] 30 Mcg, IM, 12 yrs and above ([place]) 02/20/2022 Pneumococcal Conjugate Vacc, 13 Valent (Prevnar) [...] encounter Miscellaneous Notes * Telephone Encounter - Carol Ledezma MD - 03/20/2024 12:21 PM EST Sent [employer] message * Telephone Encounter - Celsa Thomson OSA - 03/20/2024 12:12 PM EST Hello- The radiologist discovered an unexpected or indeterminate finding on Nano Will ([id number]) and asks that you review the following [...] ensure this report is reviewed. Thank you, DEE Matthew Client Service [facility] documented in this encounter Plan of Treatment Upcoming Encounters Date Type Department Care Team (Late st Contact Info) Description 09/15/2024 4:00 PM EDT Office Visit [address] [place] [phone] Carol Ledezma MD [address] [place] [address] [place] [phone] 04/09/2025 3:40 PM EST Office Visit [address] [place] [phone] Carol Ledezma MD [address] [place] [address] [place] [address] Health Maintenance Due Date Last Done Comments Adult Wellness Visit 01/23/2006 COVID-19 Vaccine ( season) 2023 02/20/2022, 05/09/2021, 07/28/2020, Additional history exists GFR 09/03/2024 03/06/2024, 08/27, 02/26/2023, Additional history exists Albumin/Creatinine Ratio 03/03/2025 024, 08/21/2022, 07/27/2021, Additional history exists CKD HGB USE SMARTSET 97165 03/06/202503/06, 03/06/2024, 09/10/2023, Additional history exists CKD PHOS USE SMARTSET 81678 03/06/202511/2023, 02/26/2023, 01/26/2022, Additional history exists Depression [...] Documents on File Type Date Recorded Patient Pick And Shovel Man Expl anation Advance Directives and Living Will 07/10/2022 ADVANCE DIRECTIVE / LIVING WILL Power of Highway Truck Driver 07/10/2022 POWER OF A TTORNEY - HEALTH CARE Healthcare Agents on File Name Relationship Healthcare Agent Relationshi p Communication Stephanie Perks Adult Child Health Care Repr esentative (appointed verbally by patient or by statute hierarchy) Care Teams Absorber Operator Relationship Specialty Start Date End Date Carol Ledezma MD [address] [place] [address] [place] [phone] PCP - General Family Medicine 06/09/14 documented as of this encounter
--- OUTSIDE RECORDS SUMMARY | 2024-08-18 00:54 | External Medical Summary ---
Author Name Unknown Address Unknown Organization K01:[place] [place] - [address] [facility] [address] [facility] [address] Laboratory Report Ordering Provider Test Date Status VAISHNAVI DOBBINS 03/06/2024 14:22:46 Final Observation Date Value Abnormality Reference (Units ) Status TSH 03/06/2024 14:22:46 2.29 0.27-4.20 (uIU/mL) Final Performing Location [facility] [facility] [place] [address] [facility] [address]
--- OUTSIDE RECORDS SUMMARY | 2024-08-18 00:54 | External Medical Summary | Summary of Care ---
Author Name Unknown Organization [facility] Address [address] [place] [address] Phone [phone] Care Team Providers Care Tower Foreman Name Role Phone Carol Ledezma MD Primary Care Provide r Reason for Visit * Reason Comments Outpatient Testing Encounter Details Date Type Department Care Team (Late st Contact Info) Description 03/03/2024 10:20 AM EST Laboratory Laboratory [address] [place] [phone] [place] [address] Dysuria Allergies Active Allergy Reactions Criticality Noted [...] Description 03/06/2024 1:40 PM EST Office Visit [address] [phone] Carol Ledezma MD [address] [place] [address] [place] [phone] 09/15/2024 4:00 PM EDT Office Visit [address] [phone] Carol Ledezma MD [address] [place] [address] [place] [address] Pending Results Name Type Priority Associated Diagnoses [...] Additional history exists CKD PHOS USE SMARTSET 60227 02/27/202401/29, 01/26/2022, 11/11/2020, Additional history exists GFR 03/12/2024 09/10/2023, 01/29, 08/21/2022, Additional history exists CKD HGB USE SMARTSET 58048 09/09/202409/09, 09/10/2023, 02/26/2023, Additional history exists TSH [...] Documents on File Type Date Recorded Patient Supervisor [employer] Expl anation Advance Directives and Living Will 07/10/2022 ADVANCE DIRECTIVE / LIVING WILL Power of Frit Mixer And Burner 07/10/2022 POWER OF A TTORNEY - HEALTH CARE Healthcare Agents on File Name Relationship Healthcare Agent Relationshi p Communication Stephanie Perks Adult Child Health Care Repr esentative (appointed verbally by patient or by statute hierarchy) Care Teams Tower Foreman Relationship Specialty Start Date End Date Carol Ledezma MD [address] [place] [address] [place] [phone] PCP - General Family Medicine 06/09/14 documented as of this encounter
--- OUTSIDE RECORDS SUMMARY | 2024-08-18 00:54 | External Medical Summary ---
Author Name Unknown Address Unknown Organization K01:LABORATORY [facility] [place] - [address] [place] [address] Laboratory Report Ordering Provider Test Date Status EDUARDO RAMIREZ 03/03/2024 12:25:19 Final Normal: <30 mg/g creatinine< br/>High: 30-300 mg/g creatinine
Very High: >300 mg/g creatinine
Nephrotic: >2200 mg/g creatinine Observation Date Value Abnormality Reference (Units ) Status Albumin, Urine 03/03/2024 12:25:19 14.00 (mg/dL) Final Creatinine, Urine 03/03/2024 12:25:19 129 (mg/dL) Final Albumin/Creatinine [Mass Ratio] in Urine 03/03/2024 12:25:19 109 Above high normal <30 (mg/g Creat) Final Performing Location LABORATORY [facility] [place] - [address] [place] [address]
--- OUTSIDE RECORDS SUMMARY | 2024-08-18 00:54 | External Medical Summary ---
Author Name Unknown Address Unknown Organization [id number]:[place] [facility] [place] [address] [place] [address] Laboratory Report Ordering Provider Test Date Status VAISHNAVI DOBBINS 03/06/2024 14:22:46 Final Observation Date Value Abnormality Reference (Units ) Status Folic Acid 03/06/2024 14:22:46 >20.0 >4.5 (ng/ mL) Final Performing Location LAB[facility]ATORY [facility] - [address] [place] [address]
--- OUTSIDE RECORDS SUMMARY | 2024-08-18 00:54 | External Medical Summary | Summary of Care ---
Author Name Unknown Organization [facility] Address [address] [place] [address] Phone [phone] Care Team Providers Care Living Nurse Name Role Phone Carol Ledezma MD Primary Care Provide r Reason for Visit * Reason Comments Outpatient Testing Encounter Details Date Type Department Care Team (Late st Contact Info) Description 03/03/2024 10:20 AM EST Laboratory Laboratory [address] [place] [phone] [place] [address] Dysuria Allergies Active Allergy Reactions Criticality Noted [...] Description 03/06/2024 1:40 PM EST Office Visit [address] [phone] Carol Ledezma MD [address] [place] [address] [place] [id number] 09/15/2024 4:00 PM EDT Office Visit [address] [phone] Carol Ledezma MD [address] [place] [address] [place] [id number] Pending Results Name Type Priority Associated Diagnoses [...] Additional history exists CKD PHOS USE SMARTSET 25410 02/27/202401/29, 01/26/2022, 11/11/2020, Additional history exists GFR 03/12/2024 09/10/2023, 01/29, 08/21/2022, Additional history exists CKD HGB USE SMARTSET 96329 09/09/202409/09, 09/10/2023, 02/26/2023, Additional history exists TSH [...] Documents on File Type Date Recorded Patient Piercer Expl anation Advance Directives and Living Will 07/10/2022 ADVANCE DIRECTIVE / LIVING WILL Power of Home Care Manager Rn 07/10/2022 POWER OF A TTORNEY - HEALTH CARE Healthcare Agents on File Name Relationship Healthcare Agent Relationshi p Communication Stephanie Perks Adult Child Health Care Repr esentative (appointed verbally by patient or by statute hierarchy) Care Teams Living Nurse Relationship Specialty Start Date End Date Carol Ledezma MD [address] [place] [address] [place] [id number] PCP - General Family Medicine 06/09/14 documented as of this encounter
--- OUTSIDE RECORDS SUMMARY | 2024-08-18 00:54 | External Medical Summary ---
Author Name Unknown Address Unknown Organization K01:[facility] - [address] [facility] [address] Laboratory Report Ordering Provider Test Date Status VAISHNAVI DOBBINS 03/06/2024 14:22:46 Final Observation Date Value Abnormality Reference (Units ) Status BUN 03/06/2024 14:22:46 12 6-20 (mg/dL) Final Creatinine 03/06/2024 14:22:46 1.3 Above high normal 0.5-1.0 (mg/dL) Final Glomerular filtration rate/1.73 sq M.predicted [Volume Rate/Area] in Serum, Plasma or Blood by Creatinine-based formula (CKD-EPI) 03/06/2024 14:22:46 41 Below low normal >=60 (mL/min) Final eGFR is calculated based on the CKD-EPI 2020 equation. Sodium 03/06/2024 14:22:46 139 135-146 (m mol/L) Final Potassium 03/06/2024 14:22:46 4.7 3.5-5.1 (m mol/L) Final Cl 03/06/2024 14:22:46 102 98-107 (mm ol/L) Final CO2 03/06/2024 14:22:46 27 22-32 (mmo l/L) Final Anion gap 03/06/2024 14:22:46 10 7-15 (mmol /L) Final Glucose 03/06/2024 14:22:46 114 70-120 (mg /dL) Final Albumin 03/06/2024 14:22:46 3.6 Below low normal 3.8 -5.0 (g/dL) Final AST (Aspartate aminotransferase) 03/06/2024 14:22:46 21 10-35 (U/L) Fin al Alk Phos 03/06/2024 14:22:46 60 35-130 (U/ L) Final Bilirubin, Total 03/06/2024 14:22:46 0.4 <=1 .2 (mg/dL) Final Calcium 03/06/2024 14:22:46 9.3 8.4-10.2 ( mg/dL) Final Protein 03/06/2024 14:22:46 6.4 6.0-8.3 (g /dL) Final ALT (Alanine aminotransferase) 03/06/2024 14:22:46 15 10-35 (U/L) Renzo sam Performing Location LABORATORY [facility] [place] - [address] [facility] [address]
--- OUTSIDE RECORDS SUMMARY | 2024-08-18 00:55 | External Medical Summary ---
Author Name Unknown Address Unknown Organization K01:[facility] - [address] [facility] [address] Laboratory Report Ordering Provider Test Date Status VAISHNAVI DOBBINS 03/03/2024 10:01:54 Final Observation Date Value Abnormality Reference (Units ) Status Color of Urine by Auto 03/03/2024 10:01:54 Yellow Colorless, Light Yellow, Yellow, Dark Yellow Final Clarity, Urine 03/03/2024 10:01:54 Slightly Cloudy Abnormal Clear Final Glucose [Mass/volume] in Urine by Automated test strip 03/03/2024 10:01:54 Negative Negative (mg/dL) Final Bilirubin.total [Presence] in Urine by Automated test strip 03/03/2024 10:01:54 Negative Negative Final Ketones [Mass/volume] in Urine by Automated test strip 03/03/2024 10:01:54 Negative Negative (mg/dL) Final Specific gravity, Urine 03/03/2024 10:01:54 1.012 1.003-1.030 Final Hemoglobin [Presence] in Urine by Automated test strip 03/03/2024 10:01:54 Small Abnormal Negative Final pH, Urine 03/03/2024 10:01:54 6.0 5.0-7.5 (Units) Final Protein [Mass/volume] in Urine by Automated test strip 03/03/2024 10:01:54 30 Abnormal Negative (mg/dL) Final Urobilinogen [Mass/volume] in Urine by Automated test strip 03/03/2024 10:01:54 Normal Normal (mg/dL) Final Nitrite [Presence] in Urine by Automated test strip 03/03/2024 10:01:54 Negative Negative Final Leukocyte esterase [Presence] in Urine by Automated test strip 03/03/2024 10:01:54 Large Abnormal Negative Final RBC, Urine 03/03/2024 10:01:54 20-29 Abnormal 0-2 (/HPF) Final WBC, Urine 03/03/2024 10:01:54 50+ Abnormal 0-2 (/HPF) Final Bacteria [#/area] in Urine sediment by Microscopy high power field 03/03/2024 10:01:54 0-25 0-25 (/HPF) Final Leukocyte clumps [#/area] in Urine sediment by Microscopy high power field 03/03/2024 10:01:54 Present Abnormal None (/HPF) Final Performing Location [facility] [place] [facility] [address] [facility] [address]
--- OUTSIDE RECORDS SUMMARY | 2024-08-18 00:55 | External Medical Summary ---
Author Name Unknown Address Unknown Organization K01:[facility] [place] [address] [facility] [address] [facility] [address] Laboratory Report Ordering Provider Test Date Status VAISHNAVI DOBBINS 03/03/2024 10:01:54 Final <10,000 colonies/ml mixed no rmal norbert Observation Date Value Abnormality Reference (Units ) Status Bacteria identified in Specimen by Culture 03/03/2024 10:01:54 [id number]^KLEBSIELL A PNEUMONIAE Abnormal Final >100,000 colonies/mL Klebsie lla pneumoniae Performing Location [facility] [place] [address] [facility] [place] [address] Ordering Provider Test Date Status VAISHNAVI DOBBINS 03/03/2024 10:01:54 Final Observation Date Value Abnormality Reference (Units ) Status Ampicillin + Sulbactam 03/03/2024 10:01:54 4 Susceptible Final Cefazolin 03/03/2024 10:01:54 <=4 Susceptible Final Cefepime susceptibility 03/03/2024 10:01:54 <=1 Susceptible Final Ceftriaxone suceptibility 03/03/2024 10:01:54 <=1 Susceptible Final Ciprofloxacin 03/03/2024 10:01:54 <=0.25 Susceptible Final Due to serious side effects, the FDA has advised against using Ciprofloxacin to treat uncomplicated UTIs and respiratory tract infections unless there are no alternative treatment options. Gentamicin susceptibility 03/03/2024 10:01:54 <=1 Susc eptible Final Nitrofurantoin susceptibility 03/03/2024 10:01:54 32 Susceptible Final Piperacillin + Tazobactamsusceptibility 03/03/2024 10:01:54 <=4 Susceptible Final TMP-SMZ susceptibility 03/03/2024 10:01:54 <=20 Suscept ible Final Test: Culture, Urine, Quanti tative
Specimen Source: Urine, Clean Catch
Specimen Type: Urine
Specimen Date: 03/03/2024 1001
Result Date: 03/05/2024 1440
Result Status: Final result
Abnormal: Yes
Resulting Lab: [facility]
[address] [facility] [address]
[facility] [address]

CULTURE

>100,000 colonies/mL Klebsiella pneumoniae (Abnormal)

<10,000 colonies/ml mixed normal norbert

SUSCEPTIBILITY

Klebsiella
pneumoniae
METHOD MICROBROTH
DILUTIONS

AMPICILLIN/SULBACTAM 4 Susceptible
CEFAZOLIN <=4 Susceptible
CEFEPIME <=1 Susceptible
CEFTRIAXONE <=1 Susceptible
CIPROFLOXACIN <=0.25 Susceptible
[1]
GENTAMICIN <=1 Susceptible
NITROFURANTOIN 32 Susceptible
PIPERACILLIN TAZOBACTAM <=4 Susceptible
TRIMETH/SULFAMETHOXAZOLE <=20 Susceptible

[1] Due to serious side effects, the FDA has advised against using
Ciprofloxacin to treat uncomplicated UTIs and respiratory tract infections
unless there are no alternative treatment options.

null Performing Location [facility] [place] [address] [facility] [address]
[2024-08-18] MEDS: ACETAMINOPHEN 325 MG TAB PO PRN (01:14)
[2024-08-18] MEDS: CEFEPIME 2000MG 2,000 MG/20 ML SYR IV SCH (04:39)
[2024-08-18] MEDS: LEVOTHYROXINE SODIUM 88 MCG TABLET PO SCH (05:53)
[2024-08-18 06:26] LABS: Basophils # (auto) 0.04 K/uL (0.00-0.20); Basophils % (auto) 0.7 %; Eosinophils % (auto) 4.9 %; Hematocrit (blood only) 31.6 % (37.0-47.0); Hemoglobin 10.5 g/dl (12.0-16.0); Immature Granulocytes # (auto) 0.02 K/uL (0.01-0.20); Immature Granulocytes % (auto) 0.3 %; Lymphocytes # (auto) 1.56 K/uL (1.20-3.40); Lymphocytes % (auto) 25.6 %; Mean Corpuscular Hemoglobin 31.2 pg (25.0-34.0); Mean Corpuscular Hgb Conc 33.2 g/dL (32.0-36.0); Mean Corpuscular Volume 93.8 fL (80.0-100.0); Mean Platelet Volume 9.3 fL (9.4-12.4); Monocytes # (auto) 0.75 K/uL (0.11-0.59); Monocytes % (auto) 12.3 %; Neutrophils # (auto) 3.42 K/uL (1.40-6.50); Neutrophils % (auto) 56.2 %; Platelet Count 218 K/uL (130-400); RDW Coefficient of Variation 14.3 % (11.5-14.5); RDW Standard Deviation 48.7 fL (36.4-46.3); Red Blood Count 3.37 M/uL (4.20-5.40); White Blood Count 6.09 K/ul (4.8-10.8)
[2024-08-18 06:48] LABS: BUN Creatinine Ratio 13.6 (10-20); Calcium 8.9 mg/dl (8.6-10.3); Creatinine Clr Calc Pharmacy 48.4 ml/min
[2024-08-18 07:11] VITALS: RESP 16
[2024-08-18] MEDS: ATENOLOL 25 MG TABLET PO SCH (07:29)
[2024-08-18] MEDS: ASPIRIN 81 MG ECTAB PO SCH (07:29)
[2024-08-18] MEDS: MULTIVITAMIN TAB PO SCH (07:29)
[2024-08-18] MEDS: CYANOCOBALAMIN (B-12) 100 MCG TABLET PO SCH (07:30)
[2024-08-18] MEDS: PANTOprazole 40 MG TAB PO SCH (07:30)
[2024-08-18] MEDS: DOCUSATE SODIUM 100 MG CAP PO SCH (12:57)
--- NOTE | 2024-08-18 13:10 | Podiatry Consultation ---
Date of Consultation August 18, 2024 Assessment & Plan (1) Osteomyelitis of great toe of left foot: 1. Osteomyelitis of the left hallux: - Culture of the left great toe collected on 08/17/2024 is pending - ABIs performed in the emergency department showed a right TOM of 0.53 and a left TOM of 0.54, indicating moderate peripheral vascular disease in the lower extremities bilaterally. Arterial ultrasound and consult to vascular surgery will be considered prior to any definitive procedure of the left hallux. - Outpatient MRI on 08/17/2024 showed distal tuft of the phalanx osteomyelitis - White blood count on 08/18/2024 was 6.09, hemoglobin 10.5, hematocrit 31.6 - Initiated on IV Zosyn with consideration for adding cefepime pending culture and sensitivity - Order: ESR, CRP - Order: X-ray bilateral foot 3 views. - Left hallux Toenail was auto avulsed proximally with some distal soft tissue attachments which are released the toenail was removed. Underlying granuloma tissue to the nailbed just tender to palpation. No mio probe to bone. No active drainage or malodor. Mild erythema and edema to the left hallux. Flushed with Betadine and dressed with Optifoam and a dry sterile dressing. Plan to evaluate plain film radiographs and reevaluate ulceration in the morning. Based on current clinical appearance I do not believe there is any urgent need for amputation of the hallux however if x-rays show osteomyelitis and patient should choose to move forward with amputation would plan for this procedure 08/20/2024. Thank you for consulting podiatry to aid in the care of this patient. Will continue to follow while she remains in house and recommend follow-up with the wound care center following discharge. (2) Cellulitis: Laterality: left Site of cellulitis: extremity Site of cellulitis of extremity: lower extremity Qualified Code(s): L03.116 - Cellulitis of left lower limb History of Present Illness Reason for Consultation: Osteomyelitis left hallux Attending Physician: Jamal Greene MD History of Present Illness The patient is an 84-year-old female inpatient who was seen by her PCP, Dr. Ledezma, approximately 1 week ago for an ulceration and infection of the left great toe. She was initiated on a 10-day course of oral Bactrim. After 6 days of treatment, her daughter noticed little to no improvement and increased redness and swelling over the past 48 hours, prompting her to bring her mother to [facility] emergency department for further evaluation. Upon arrival to the emergency department, she was initiated on IV Zosyn with consideration for adding cefepime pending culture and sensitivity. Culture of the left great toe collected on 08/17/2024 is pending. The patient's code status is DNR/DNI. On arrival to the emergency department, she was afebrile without leukocytosis, hemodynamically stable without hypoxia. The patient's daughter is her primary caregiver and lives nearby. The patient lives alone in her apartment and receives regular daily assistance from her daughter for activities of daily living. ABIs performed in the emergency department showed a right TOM of 0.53 and a left TOM of 0.54, indicating moderate peripheral vascular disease in the lower extremities bilaterally. An arterial ultrasound and consult to vascular surgery will be considered prior to any definitive procedure of the left hallux. The emergency room report mentions x-ray and MRI of the left foot showing signs compatible with osteomyelitis of the left hallux; however, these were done at an outside facility and records are not currently accessible. An outpatient MRI on 08/17/2024 showed distal tuft of the phalanx osteomyelitis. The patient was referred to the emergency department for IV antibiotic therapy and potential surgical intervention. PAST SURGICAL HISTORY: Status post right hip replacement. Allergies Allergy/AdvReac Type Severity Reaction Status Date / Time No Known Allergies Allergy Verified 08/17/24 20:12 Home Medications Medication Instructions Recorded Confirmed Type atenolol 50 mg tablet (Tenormin) 25 mg PO DAILY 03/13/20 08/17/24 History atorvastatin 40 mg tablet (Lipitor) 40 mg PO HS 03/13/20 08/17/24 History calcium 600 mg (as carbonate)-vit 1 tab PO Q2D 03/13/20 08/17/24 History D3 20 mcg (800 unit) chewable tablet (Caltrate plus D) multivitamin 1 tab PO QAM 03/13/20 08/17/24 History omega 0-mwm-aou-fish oil 900 1 cap PO BID 05/29/21 08/17/24 History mg-1,400 mg capsule,delayed release cyanocobalamin (vitamin B-12) 100 100 mcg PO QAM #60 tabs 07/02/22 08/17/24 Rx mcg tablet (Vitamin B-12) acetaminophen 500 mg capsule 1,000 mg PO Q4H PRN Pain 08/17/24 08/17/24 History alendronate 70 mg tablet 70 mg PO WK 08/17/24 08/17/24 History aspirin 81 mg tablet,delayed 81 mg PO DAILY 08/17/24 08/17/24 History release (Jose Low Dose Aspirin) doxycycline hyclate 100 mg capsule 100 mg PO BID 08/17/24 08/17/24 History levothyroxine 88 mcg tablet 88 mcg PO DAILYBB 08/17/24 08/17/24 History pantoprazole 40 mg tablet,delayed 40 mg PO QAM 08/17/24 08/17/24 History release Patient History Medical History Heme positive stool Poor historian GERD (gastroesophageal reflux disease) Hyperlipidemia Surgical History History of colonoscopy History of total right hip replacement Right DENNISE (05/31/15): SAB at L3-4 (x1 attempt) at [facility] Family History Other No pertinent family history Social History Smoking Status: Never smoker Tobacco Type: Declines Second Hand Exposure: No; Do You Dip or Chew Tobacco: No; Tobacco Cessation Education Requested by Patient: No Hx Alcohol Use: No Hx Substance Use: No Preferred Language: Jamaican Communication Ability: Effective Gas Charger Required: No Beliefs That Will Affect Care: None Current Living Situation: Family Current Living Situation Comment: With daughter Mariah Other Information That Helps Us Care for You: No Feels Safe at Home: Yes Safety Concerns: Feels Safe At This Time Assistive Devices: Cane and Walker Review of Systems Review of Systems: Denies nausea, vomiting, fever, chills, shortness of breath, chest pain. Reports mild discomfort to the left hallux. All other systems reviewed and negative unless stated in HPI. Physical Exam Physical Exam: Const: Appears well developed and well nourished. No signs of acute distress present. CV: Extremities: No cyanosis or edema. Capillary refill time is less than 2 seconds all digits of the bilateral foot. Posterior tibial and dorsalis pedis pulses are palpable bilateral. Lymph: No palpable or visible regional lymphadenopathy. Skin: Thin atrophic skin with loss of hair growth bilateral lower extremity below the knee. Thick dystrophic nails bilaterally. . Neuro: Sensation intact to light touch in all areas of the foot and ankle. Psych: Mood/Affect: Mood is normal. Affect is normal. Cognition: Orientation is intact to person, place and time. Focused lower extremity musculoskeletal exam: Leg: No pain with compression of the calf muscle. Ankles: Normal to inspection and palpation. No swelling bilaterally. No tenderness bilaterally. Range of motion pain-free and unlimited. Feet: Auto avulsed left hallux nail with minimal soft tissue attachment to the medial and lateral nail distally. Underlying drainage and ulceration to the nailbed with granuloma tissue formation to the distal nailbed. There is no frankly exposed bone to the wound bed. Erythema and edema to the left hallux. Results & Data Vital Signs (Past 12 Hours) Vital Signs Temp Pulse Resp BP Pulse Ox O2 Del Method 08/18/24 07:10 36.9 C 61 16 132/78 96 Room Air Laboratory Results - White blood count: 08/18/2024, 6.09 - Hemoglobin: 08/18/2024, 10.5 - Hematocrit: 08/18/2024, 31.6 Diagnostic Findings Exam(s): US TOM EXAM: US Ankle-Brachial Index (TOM), 1 or 2 Levels CLINICAL HISTORY: Reason for exam: poorly healing wound, hx pvd. TECHNIQUE: Limited bilateral and noninvasive physiological study of the upper or lower extremity arteries. Bidirectional, Doppler and pressure waveform recording with analysis at 1-2 levels. COMPARISON: No relevant prior studies available. FINDINGS: Right TOM: 0.53. (Normal range is between 0.90 and 1.40.) Left TOM: 0.54. (Normal range is between 0.90 and 1.40.) IMPRESSION: Findings compatible with moderate peripheral vascular disease in the lower extremities bilaterally. PG Care Time/CCT Total # of Minutes Spent Total Time Spent with Patient: Total time spent is greater than 50% in coordination of care (as documented) at patient's floor/unit and/or counseling patient: [place] [address] INT INP/OBS CARE 2/55MIN Patient Type Established Diagnoses Osteomyelitis of great toe of left foot M86.9 Cellulitis L03.116 Laterality: left Site of cellulitis: extremity Site of cellulitis of extremity: lower extremity
--- NOTE | 2024-08-18 13:45 | XRay Report ---
XR foot RT min 3V routine CLINICAL HISTORY: Osteomyelitis left hallux COMPARISON: None FINDINGS: There is soft tissue swelling lateral to the fifth MTP joint. No fracture or dislocation s een. There are mild degenerative changes at the first MTP joint without erosions. No evidence of oste omyelitis seen. IMPRESSION: No osteomyelitis seen. ACT 112: Negative or not required by law. Electronically signed by: Manuel Delong M.D. 08/18/2024 1:43 PM
--- NOTE | 2024-08-18 14:07 | Hospitalist Progress Note ---
Date of Service August 18, 2024 Assessment & Plan (1) Cellulitis: Plan: 84 year old female with a past medical history of hypertension, hyperlipidemia, hypothyroidism, s/p right hip replacement, presenting to the emergency department with left toe infection and osteomyelitis. Mild tenderness noted over a week ago and was taken to PCP by her daughter, who is her primary caregiver. She was diagnosed with cellulitis of the toe and treated with Bactrim, now day6/ 10 of treatment. Osteomyelitis/Cellulitis of great toe of left foot Peripheral vascular disease -Outpatient left foot MRI showed:Focal edema in the tuft of the first distal phalanx with preserved T1 fat signal, most consistent with osteitis/developing osteomyelitis. Great toe nail bed irregularity and edema. No discrete fluid collection. - Wound culture preliminarily growing Staph aureus -Ankle-brachial index suggestive of moderate peripheral vascular disease in the lower extremities bilaterally -Patient failed outpatient doxycycline course -Empirically on IV cefepime ESR CRP, right foot x-ray per podiatry Appreciate podiatry input Arterial Doppler, vascular surgery evaluation to be considered per podiatry prior to definitive treatment Continue local wound care Pain control as needed (2) Hypertension: Plan: Blood pressure mildly elevated likely due to pain Continue Tylenol Monitor blood pressure (3) Hypothyroidism: Plan: Continue levothyroxine Plan Memory impairment as per record Reorient frequently to minimize delirium DVT Px: Heparin SQ Code status: DNR/DNI Admission and Anticipated Discharge Date Admission Date: August 17, 2024 Subjective Patient is seen and examined at bedside States having left great toe pain with activity Otherwise feels well, no other complaints Denies any chest pain, dyspnea, nausea, vomiting, abdominal pain Review of Systems Review of Systems: All systems reviewed & are unremarkable except as noted in Subjective Physical Exam Physical Exam: Physical Exam: Vitals signs as noted above General Appearance:Thin, frail, no apparent distress, Elderly Head: normocephalic, Atraumatic Eyes: normal inspection, EOMI Neck: supple, Trachea midline Respiratory/Chest: Normal breath sounds, CTA, No accessory muscle use Cardiovascular: S1, S2, + murmur Abdomen/GI:Soft, Non tender, Bowel sounds present Extremities/Musculoskeletal:normal inspection, no edema, left great toe swelling, erythema, tender Neurologic/Psych:AAOX3, grossly no focal neurological deficits Skin: normal color, warm Results & Data Results & Data Vital Signs (Past 12 Hours) Vital Signs Temp Pulse Resp BP Pulse Ox O2 Del Method 08/18/24 07:10 36.9 C 61 16 132/78 96 Room Air Laboratory Results Short CBC 08/17/24 08/18/24 Range/Units 18:49 05:35 WBC 9.58 6.09 (4.8-10.8) K/ul Hgb 12.4 10.5 L (12.0-16.0) g/dl Hct 37.6 31.6 L (37.0-47.0) % Plt Count 303 218 (130-400) K/uL BMP 08/17/24 08/18/24 18:49 05:35 Sodium 140 142 Potassium 3.7 4.0 Chloride 103 105 Carbon Dioxide 33 H 34 H BUN 11 11 Creatinine 0.80 0.81 Glucose 107 H 97 Calcium 9.4 8.9 Liver Function 08/17/24 Range/Units 18:49 Total Bilirubin 0.4 (0.2-1.0) mg/dl AST 28 (13-39) U/L ALT 19 (7-52) U/L Alkaline Phosphatase 59 (34-104) U/L Albumin 3.9 (3.4-5.0) gm/dl Urine 08/17/24 Range/Units 18:49 Urine Color Yellow Urine Appearance Clear (Clear) Urine pH 6.0 (4.5-7.5) Ur Specific [place] 1.009 (1.000-1.030) Urine Protein Negative (Negative) Urine Glucose (UA) Negative (Negative) (1) Cellulitis Laterality: left Site of cellulitis: extremity Site of cellulitis of extremity: lower extremity Qualified Code(s): L03.116 - Cellulitis of left lower limb
--- NOTE | 2024-08-18 15:55 | XRay Report ---
XR foot LT min 3V routine CLINICAL HISTORY: ulcer left hallux COMPARISON: None FINDINGS: No fracture or dislocation seen. No evidence of osteomyelitis. No radiopaque foreign body. IMPRESSION: No osteomyelitis seen. ACT 112: Negative or not required by law. Electronically signed by: Manuel Delong M.D. 08/18/2024 3:53 PM
[2024-08-18] MEDS: traMADol HCL 50 MG TABLET PO PRN (20:50)
[2024-08-18] MEDS: HEPARIN SOD 5,000 UNIT/0.5 ML VIAL SQ SCH (20:51)
[2024-08-18] MEDS: ATORVASTATIN 40 MG TAB PO SCH (20:51)
[2024-08-19 07:19] VITALS: BP 133/80; PULSE 64; TEMP 98.1; O2SAT 92
[2024-08-19 07:22] LABS: Hematocrit (blood only) 31.9 % (37.0-47.0); Hemoglobin 10.7 g/dl (12.0-16.0); Mean Corpuscular Hgb Conc 33.5 g/dL (32.0-36.0); Mean Corpuscular Volume 92.5 fL (80.0-100.0); Platelet Count 208 K/uL (130-400); RDW Coefficient of Variation 14.4 % (11.5-14.5); RDW Standard Deviation 48.5 fL (36.4-46.3); Red Blood Count 3.45 M/uL (4.20-5.40)
[2024-08-19 07:38] LABS: Anion Gap 2 (3-11); BUN Creatinine Ratio 16.7 (10-20); Blood Urea Nitrogen 13 mg/dl (6-23); C Reactive Protein < 0.50 mg/dl (0-0.5); Calcium 8.6 mg/dl (8.6-10.3); Carbon Dioxide 31 mmol/L (21-32); Chloride 105 mmol/L (98-107); Creatinine Clr Calc Pharmacy 50.3 ml/min; Glucose 98 mg/dl (70-99(Fasting)); Sodium 138 mmol/L (136-145)
[2024-08-19] MEDS: CALCIUM 600MG + VIT D 400 IU TAB PO SCH (08:20)
--- NOTE | 2024-08-19 08:45 | Podiatry Progress Note ---
Date of Service August 19, 2024 Assessment & Plan (1) Cellulitis: (2) Skin ulcer of left great toe with fat layer exposed: Plan 1. Osteomyelitis of the left hallux: - Culture of the left great toe collected on 08/17/2024: Staph aureus. - ABIs performed in the emergency department showed a right TOM of 0.53 and a left TOM of 0.54, indicating moderate peripheral vascular disease in the lower extremities bilaterally. - White blood count on 08/18/2024 was 6.09, hemoglobin 10.5, hematocrit 31.6 - Initiated on IV Zosyn with consideration for adding cefepime pending culture and sensitivity - Order: ESR, CRP - Order: X-ray bilateral foot 3 views. X-rays reviewed with no radiographic findings to suggest osteomyelitis. - Left hallux dressing changed. Granuloma tissue overlying the wound bed decreased in size with active sanguinous drainage. Decreased erythema and edema to the toe. Based on clinical, laboratory and radiographic findings I have little concern for active osteomyelitis of the great toe on the left foot. Would recommend daily dressing change with antibiotic ointment, nonadherent gauze and a dry sterile dressing. Okay to weight-bear as tolerated in normal shoe gear. No plan for podiatric surgical intervention. Okay for discharge from podiatry [facility]. Recommend discharge on p.o. antibiotic to complete 10-14 day course from time of admission. I did reach out to patient's daughter Britney metzger at patient's request to review her care as a pertains to the left foot. All questions answered. Patient's daughters primary caregiver and will be changing the dressings for patient at home. Discussed with hospitalist team Thank you for consulting podiatry to aid in the care of this patient. Will continue to follow while she remains in house and recommend follow-up with the wound care center following discharge. Admission and Anticipated Discharge Date Admission Date: August 17, 2024 Subjective Patient seen resting comfortably in hospital bed. Denies pain at baseline to the left foot. Mild pain with pressure to the dorsal left hallux. Denies nausea vomiting fever chills. Requesting I reach out to her daughter to fill her in on patient's current treatment of the left hallux. Review of Systems Review of Systems: Denies nausea, vomiting, fever, chills, shortness of breath, chest pain. Reports mild discomfort to the left hallux. All other systems reviewed and negative unless stated in HPI. Physical Exam Physical Exam: Const: Appears well developed and well nourished. No signs of acute distress present. CV: Extremities: No cyanosis or edema. Capillary refill time is less than 2 seconds all digits of the bilateral foot. Posterior tibial and dorsalis pedis pulses are palpable bilateral. Lymph: No palpable or visible regional lymphadenopathy. Skin: Thin atrophic skin with loss of hair growth bilateral lower extremity below the knee. Thick dystrophic nails bilaterally. . Neuro: Sensation intact to light touch in all areas of the foot and ankle. Psych: Mood/Affect: Mood is normal. Affect is normal. Cognition: Orientation is intact to person, place and time. Focused lower extremity musculoskeletal exam: Leg: No pain with compression of the calf muscle. Ankles: Normal to inspection and palpation. No swelling bilaterally. No tenderness bilaterally. Range of motion pain-free and unlimited. Feet: Relatively healthy nail bed with the exception of the wound to the distal dorsal aspect of the toe with resolving granuloma tissue. Active sanguinous drainage on dressing change today. Decreased erythema and edema. No malodor. Results & Data Results & Data Vital Signs (Past 12 Hours) Vital Signs Temp Pulse Resp BP Pulse Ox O2 Del Method 08/19/24 07:16 36.7 C 64 16 133/80 92 Room Air 08/18/24 23:49 Room Air Diagnostic Findings 08/18/2024: XR foot LT min 3V routine CLINICAL HISTORY: ulcer left hallux COMPARISON: None FINDINGS: No fracture or dislocation seen. No evidence of osteomyelitis. No radiopaque foreign body. IMPRESSION: No osteomyelitis seen. XR foot RT min 3V routine CLINICAL HISTORY: Osteomyelitis left hallux COMPARISON: None FINDINGS: There is soft tissue swelling lateral to the fifth MTP joint. No fracture or dislocation seen. There are mild degenerative changes at the first MTP joint without erosions. No evidence of osteomyelitis seen. IMPRESSION: No osteomyelitis seen. Coding [place] [address] SUB INP/OBS CARE 3/50MIN Patient Type Established Diagnoses Cellulitis L03.116 Laterality: left Site of cellulitis: extremity Site of cellulitis of extremity: lower extremity Skin ulcer of left great toe with fat layer exposed L97.522 (1) Cellulitis Laterality: left Site of cellulitis: extremity Site of cellulitis of extremity: lower extremity Qualified Code(s): L03.116 - Cellulitis of left lower limb
--- NOTE | 2024-08-19 12:53 | Podiatry Progress Note ---
Date of Service August 19, 2024 Assessment & Plan Admission and Anticipated Discharge Date Admission Date: August 17, 2024 Subjective Results & Data Results & Data Vital Signs (Past 12 Hours) Vital Signs Temp Pulse Resp BP Pulse Ox O2 Del Method 08/19/24 07:16 36.7 C 64 16 133/80 92 Room Air Coding
--- NOTE | 2024-08-19 14:07 | Hospitalist Progress Note ---
Date of Service August 19, 2024 Assessment & Plan (1) Cellulitis: Plan: 84 year old female with a past medical history of hypertension, hyperlipidemia, hypothyroidism, s/p right hip replacement, presenting to the emergency department with left toe infection and osteomyelitis. Mild tenderness noted over a week ago and was taken to PCP by her daughter, who is her primary caregiver. She was diagnosed with cellulitis of the toe and treated with Bactrim, now day6 10 of treatment. Osteomyelitis/Cellulitis of great toe of left foot Peripheral vascular disease -Outpatient left foot MRI showed:Focal edema in the tuft of the first distal phalanx with preserved T1 fat signal, most consistent with osteitis/developing osteomyelitis. Great toe nail bed irregularity and edema. No discrete fluid collection. - Wound culture preliminarily growing Staph aureus -Ankle-brachial index suggestive of moderate peripheral vascular disease in the lower extremities bilaterally Normal ESR, CRP -Empirically on IV cefepime>> transition to oral antibiotics to complete the cou rse --Appreciate podiatry input: Discussed with Dr. Chu on 08/19/2024: X-ray showed no signs of osteomyelitis. ESR CRP within normal limits. Recommends to discharge patient on oral antibiotics and follow-up with podiatry on discharge. Also recommended daily dressing change Continue local wound care Pain control as needed Continue aspirin, statin for peripheral vascular disease And to discharge home today (2) Hypertension: Plan: Blood pressure mildly elevated likely due to pain Continue Tylenol Monitor blood pressure (3) Hypothyroidism: Plan: Continue levothyroxine Plan Memory impairment as per record Reorient frequently to minimize delirium DVT Px: Heparin SQ Code status: DNR/DNI Disposition Home Admission and Anticipated Discharge Date Admission Date: August 17, 2024 Subjective Patient is seen and examined at bedside Left toe pain much improved Offers no other complaints today Discussed with podiatry today Plan to be discharged home today Denies any chest pain, dyspnea, nausea, vomiting, abdominal pain Review of Systems Review of Systems: All systems reviewed & are unremarkable except as noted in Subjective Physical Exam Physical Exam: Physical Exam: Vitals signs as noted above General Appearance:Thin, frail, no apparent distress, Elderly Head: normocephalic, Atraumatic Eyes: normal inspection, EOMI Neck: supple, Trachea midline Respiratory/Chest: Normal breath sounds, CTA, No accessory muscle use Cardiovascular: S1, S2, + murmur Abdomen/GI:Soft, Non tender, Bowel sounds present Extremities/Musculoskeletal:normal inspection, no edema, left great toe swelling, erythema, tender Neurologic/Psych:AAOX3, grossly no focal neurological deficits Skin: normal color, warm Results & Data Results & Data Vital Signs (Past 12 Hours) Vital Signs Temp Pulse Resp BP Pulse Ox O2 Del Method 08/19/24 07:16 36.7 C 64 16 133/80 92 Room Air Laboratory Results Short CBC 08/19/24 Range/Units 06:59 WBC 5.50 (4.8-10.8) K/ul Hgb 10.7 L (12.0-16.0) g/dl Hct 31.9 L (37.0-47.0) % Plt Count 208 (130-400) K/uL BMP 08/19/24 06:59 Sodium 138 Potassium 4.0 Chloride 105 Carbon Dioxide 31 BUN 13 Creatinine 0.78 Glucose 98 Calcium 8.6 (1) Cellulitis Laterality: left Site of cellulitis: extremity Site of cellulitis of extremity: lower extremity Qualified Code(s): L03.116 - Cellulitis of left lower limb
--- NOTE | 2024-08-19 14:15 | Discharge Summary ---
Date of Service August 19, 2024 Admission HPI Per Admitting Provider 84 year old female with a past medical history of hypertension, hyperlipidemia, hypothyroidism, s/p right hip replacement, presenting to the emergency department with left toe infection and osteomyelitis. Mild tenderness noted over a week ago and was taken to PCP by her daughter, who is her primary caregiver. She was diagnosed with cellulitis of the toe and treated with Bactrim, receiving 6 days of treatment. The patient lives alone in an apartment complex with regular visits from her daughter. Her daughter reports the patient has had a "problem toe nail" for awhile and her mother refused to see a analysis lead. Today, the patient's daughter felt the infection was not improving with increased erythema to the toe and top of the foot. The patient was seen by her PCP, Xray and MRI showing osteomyelitis. Referred here for management of osteomyelitis. In the emergency department today, she was afebrile with no signs of leukocytosis. She was hemodynamically stable with no signs of hypoxia. Zosyn initiated. Wound culture obtained. History obtained from the patient with the assistance of her daughter, who was at the bedside during my exam. Admission Exam Per Admitting Provider VITALS: Reviewed. WEIGHT/BMI reviewed. GEN: Healthy appearing, well-developed, NAD. PSYCH: Good Judgment. AOx3. Normal memory, mood, and affect. HEENT -Head: NC/AT; -Eyes: PERRL, EOMI. No discharge or redness; -Ears: External ears are normal. Normal TMs. -Nose: Normal nares. -Mouth and throat: MMM. Normal gums, mucosa, palate,. Good dentition. NECK: Supple, with no masses. CV: RRR, no m/r/g. LUNGS: CTAB, no w/r/c. ABD: Soft, NT/ND, NBS, no masses or organomegaly. : N/A SKIN: Left great toe +swelling, +erythema, tender, no active drainage. MSK: No deformities, Normal gait. EXT: No clubbing, cyanosis, or edema. NEURO: Ambulating with no limitations. Normal muscle strength and tone. No focal deficits. Principal Diagnosis Osteomyelitis/Cellulitis of great toe of left foot Discharge Data Allergies Allergy/AdvReac Type Severity Reaction Status Date / Time No Known Allergies Allergy Verified 08/17/24 20:12 Consultations 08/17/24 20:01 ED Decision to Admit Stat 08/17/24 21:58 Consult Podiatry Routine Procedures Performed Laboratory Results WBC 5.50 K/ul (4.8-10.8) 08/19/24 06:59 RBC 3.45 M/uL (4.20-5.40) L 08/19/24 06:59 Hgb 10.7 g/dl (12.0-16.0) L 08/19/24 06:59 Hct 31.9 % (37.0-47.0) L 08/19/24 06:59 MCV 92.5 fL (80.0-100.0) 08/19/24 06:59 MCH 31.0 pg (25.0-34.0) 08/19/24 06:59 MCHC 33.5 g/dL (32.0-36.0) 08/19/24 06:59 RDW Std Deviation 48.5 fL (36.4-46.3) H 08/19/24 06:59 RDW Coeff of Peewee 14.4 % (11.5-14.5) 08/19/24 06:59 Plt Count 208 K/uL (130-400) 08/19/24 06:59 MPV 9.0 fL (9.4-12.4) L 08/19/24 06:59 Immature Gran % (Auto) 0.3 % 08/18/24 05:35 Neut % (Auto) 56.2 % 08/18/24 05:35 Lymph % (Auto) 25.6 % 08/18/24 05:35 Murray % (Auto) 12.3 % 08/18/24 05:35 Eos % (Auto) 4.9 % 08/18/24 05:35 Baso % (Auto) 0.7 % 08/18/24 05:35 Neut # (Auto) 3.42 K/uL (1.40-6.50) 08/18/24 05:35 Lymph # (Auto) 1.56 K/uL (1.20-3.40) 08/18/24 05:35 Murray # (Auto) 0.75 K/uL (0.11-0.59) H 08/18/24 05:35 Eos # (Auto) 0.30 K/uL (0.00-0.50) 08/18/24 05:35 Baso # (Auto) 0.04 K/uL (0.00-0.20) 08/18/24 05:35 Immature Gran # (Auto) 0.02 K/uL (0.01-0.20) 08/18/24 05:35 ESR 12 mm/hr (0-30) 08/18/24 05:35 Sodium 138 mmol/L (136-145) 08/19/24 06:59 Potassium 4.0 mmol/L (3.5-5.1) 08/19/24 06:59 Chloride 105 mmol/L (98-107) 08/19/24 06:59 Carbon Dioxide 31 mmol/L (21-32) 08/19/24 06:59 Anion Gap 2 (3-11) L 08/19/24 06:59 BUN 13 mg/dl (6-23) 08/19/24 06:59 Creatinine 0.78 mg/dl (0.6-1.2) 08/19/24 06:59 Est Cr Clr Drug Dosing 50.3 ml/min 08/19/24 06:59 eGFR 74.85 08/19/24 06:59 BUN/Creatinine Ratio 16.7 (10-20) 08/19/24 06:59 Glucose 98 mg/dl (70-99(Fasting)) 08/19/24 06:59 Calcium 8.6 mg/dl (8.6-10.3) 08/19/24 06:59 Total Bilirubin 0.4 mg/dl (0.2-1.0) 08/17/24 18:49 AST 28 U/L (13-39) 08/17/24 18:49 ALT 19 U/L (7-52) 08/17/24 18:49 Alkaline Phosphatase 59 U/L (34-104) 08/17/24 18:49 C-Reactive Protein < 0.50 mg/dl (0-0.5) 08/19/24 06:59 Total Protein 7.0 gm/dl (6.0-8.3) 08/17/24 18:49 Albumin 3.9 gm/dl (3.4-5.0) 08/17/24 18:49 Globulin 3.1 gm/dl (2.5-4.0) 08/17/24 18:49 Albumin/Globulin Ratio 1.3 (0.9-2) 08/17/24 18:49 Urine Color Yellow 08/17/24 18:49 Urine Appearance Clear (Clear) 08/17/24 18:49 Urine pH 6.0 (4.5-7.5) 08/17/24 18:49 Ur Specific Leland 1.009 (1.000-1.030) 08/17/24 18:49 Urine Protein Negative (Negative) 08/17/24 18:49 Urine Glucose (UA) Negative (Negative) 08/17/24 18:49 Urine Ketones Negative (Negative) 08/17/24 18:49 Urine Blood 1+ (Negative) H 08/17/24 18:49 Urine Nitrite Negative (Negative) 08/17/24 18:49 Urine Bilirubin Negative (Negative) 08/17/24 18:49 Urine Urobilinogen Negative (Negative) 08/17/24 18:49 Ur Leukocyte Esterase 2+ (Negative) H 08/17/24 18:49 Urine WBC (Auto) 11-20 /hpf (0-5) H 08/17/24 18:49 Urine RBC (Auto) 3-5 /hpf (0-2) H 08/17/24 18:49 U Hyaline Cast (Auto) 0-2 /lpf (0-2) 08/17/24 18:49 U Epithel Cells (Auto) 0-2 /hpf (0-2) 08/17/24 18:49 Urine Bacteria (Auto) None Seen (None Seen) 08/17/24 18:49 Nasal Screen MRSA (PCR) Negative (Negative) 08/17/24 20:09 Impressions Ankle Brachial Index 08/17/24 21:54 Exam(s): US TOM EXAM: US Ankle-Brachial Index (TOM), 1 or 2 Levels CLINICAL HISTORY: Reason for exam: poorly healing wound, hx pvd. TECHNIQUE: Limited bilateral and noninvasive physiological study of the upper or lower extremity arteries. Bidirectional, Doppler and pressure waveform recording with analysis at 1-2 levels. COMPARISON: No relevant prior studies available. FINDINGS: Right TOM: 0.53. (Normal range is between 0.90 and 1.40.) Left TOM: 0.54. (Normal range is between 0.90 and 1.40.) IMPRESSION: Findings compatible with moderate peripheral vascular disease in the lower extremities bilaterally. Electronically signed by: Jose Alberto Bales MD 08/18/24 00:39 AM Foot X-Ray 08/18/24 15:34 XR foot LT min 3V routine CLINICAL HISTORY: ulcer left hallux COMPARISON: None FINDINGS: No fracture or dislocation seen. No evidence of osteomyelitis. No radiopaque foreign body. IMPRESSION: No osteomyelitis seen. ACT 112: Negative or not required by law. Electronically signed by: Manuel Delong M.D. 08/18/2024 3:53 PM Ordered Studies 08/17/24 21:54 US ankle brachial index [US ankle/brachial index ltd] Routine Hospital Course (1) Cellulitis: 84 year old female with a past medical history of hypertension, hyperlipidemia, hypothyroidism, s/p right hip replacement, presenting to the emergency d epartment with left toe infection and osteomyelitis. Mild tenderness noted over a week ago and was taken to PCP by her daughter, who is her primary caregiver. She was diagnosed with cellulitis of the toe and treated with Bactrim, now day10/06 of treatment. Cellulitis of great toe of left foot Suspected osteomyelitis: Less likely per Podiatry Peripheral vascular disease -Outpatient left foot MRI showed:Focal edema in the tuft of the first distal phalanx with preserved T1 fat signal, most consistent with osteitis/developing osteomyelitis. Great toe nail bed irregularity and edema. No discrete fluid collection. - Wound culture preliminarily growing Staph aureus -Ankle-brachial index suggestive of moderate peripheral vascular disease in the lower extremities bilaterally Normal ESR, CRP -Empirically on IV cefepime>> transition to oral antibiotics to complete the course --Appreciate podiatry input: Discussed with Dr. Chu on 08/19/2024: X-ray showed no signs of osteomyelitis. ESR CRP within normal limits. Recommends to discharge patient on oral antibiotics and follow-up with podiatry on discharge. Also recommended daily dressing change Continue local wound care Pain control as needed Continue aspirin, statin for peripheral vascular disease And to discharge home today (2) Hypertension: Blood pressure mildly elevated likely due to pain Continue Tylenol Monitor blood pressure (3) Hypothyroidism: Continue levothyroxine Plan Memory impairment as per record Reorient frequently to minimize delirium DVT Px: Heparin SQ Code status: DNR/DNI Disposition Home Total Time Total Time Spent Total Time Spent (In Minutes): 54 minutes Discharge Plan Discharge Items Patient Disposition: Home - Self-Care Reason For Visit: TOE OSTEOMYELITIS Discharge Diagnosis: Osteomyelitis/Cellulitis of great toe of left foot Condition on Discharge: Good Activity: Per Instructions section Exercise/Sports: Gradually increase as tolerated Non-emergency contact: Primary Care Provider and Surgeon Call non-emergency contact if: you have any medication questions, your symptoms worsen, your pain is concerning for you and you have a fever Follow-up/Referrals: Carol Ledezma MD [Primary Care Provider] - (Date & Time 08/24/2024 4:20 PM Provider: Jayesh Mack CRNP Family Medicine [facility] ) Diet: Heart Healthy Diet Texture: Easy to Chew Addtl Attending Provider Instructions: Follow-up with your primary care physician as scheduled Follow-up with your analysis lead in 2 weeks -- Complete the antibiotic course as prescribed. --Continue daily dressing change with antibiotic cream, nonadherent gauze and dry sterile dressing as per your surgeon - Your final wound cultures are pending at the time of discharge. Follow-up with your physician for results. - Seek immediate medical attention if your symptoms reoccur or worsen Please review medication list provided on discharge for any medication changes as instructed. Please call if you have any questions or problems. You can reach a [facility] hospitalist on duty at [facility] 24 hours a day by calling [phone] Pending Studies at Discharge: Yes Studies:: Wound culture Stand-Alone Forms: My [facility], Smoking Cessation Medications and DC Order Prescriptions: New amoxicillin-pot clavulanate 875-125 mg Tablet 1 tab PO BID Qty: 20 0RF Advanced Probiotic 625 mg (10 billion cell) Capsule 1 cap PO DAILY Qty: 14 0RF Continued multivitamin Tablet 1 tab PO QAM atorvastatin [Lipitor] 40 mg tablet 40 mg PO HS atenolol [Tenormin] 50 mg tablet 25 mg PO DAILY Caltrate 600 plus D 600 mg (1,500 mg)-800 unit Tablet,Chewable 1 tab PO Q2D cyanocobalamin (vitamin B-12) [Vitamin B-12] 100 mcg Tablet 100 mcg PO QAM Qty: 60 0RF omega 2-oyt-wos-fish oil 900-1,400 mg Capsule,Delayed Release(Dr/Ec) 1 cap PO BID alendronate 70 mg tablet 70 mg PO WK Rx Instructions: EVERY SATURDAY levothyroxine 88 mcg tablet 88 mcg PO DAILYBB pantoprazole 40 mg tablet,delayed release (DR/EC) 40 mg PO QAM aspirin [Jose Low Dose Aspirin] 81 mg tablet,delayed release (DR/EC) 81 mg PO DAILY Rx Instructions: Take to prevent blood clots. acetaminophen 500 mg capsule 1,000 mg PO Q4H PRN (Reason: Pain) Rx Instructions: Take 3 times per day to lessen pain. Discontinued doxycycline hyclate 100 mg capsule 100 mg PO BID Discharge Orders: Discharge Order (Routine); Ordered 08/19/24 Ordered By: Jamal Greene Admission Data Admit Date/Time: 08/17/24 21:54 Attending Provider: Jamal Greene Admit Provider: Freeman Nuñez Primary Care Provider: Carlo Ledezma Other Providers: Freeman Nuñez; Felix Chu
[2024-08-19] MEDS: AMOXICILLIN/CLAVULANATE 875 MG TAB PO SCH (14:41)
[2024-08-19] MEDS ORDERED: cefUROXime axetil 500 MG TAB PO SCH (18:00)
[2024-08-20] MEDS ORDERED: ADVANCED PROBIOTIC 625 MG CAPSULE PO SCH (09:00)
== END 2024-08-19 15:14 | disposition home or self-care (01) | DRG 541 ==
LOC: ED 18:26 → 3W 21:54